=== PATIENT | female | born 1955 | race Caucasian/White ===

== ENCOUNTER 2018-05-20 09:57 | Emergency (ER) | payer MEDICARE ==
[2018-05-20 10:34] LABS: #Basophils 0.1 thou/uL (0.0-0.2); #Eosinphils 0.3 thou/uL (0.0-0.7); #Lymphocytes 1.3 thou/uL (1.20-3.40); #Monocytes 0.6 thou/uL (0.11-0.59); #Neutrophils 4.1 thou/uL (1.40-6.50); %Basophils 1.2 % (0.0-1.0); %Eosinophils 4.8 % (0.0-10.0); %Lymphocytes 20.7 % (21.0-51.0); %Monocytes 9.6 % (0.0-10.0); %Neutrophils 63.7 % (42.0-75.0); Hemoglobin 13.2 g/dL (12.0-16.0); Mean Corpuscular HGB CONC 32.3 g/dL (32.0-36.0); Mean Corpuscular Hemoglobin 31.7 pg (27.0-31.0); Mean Corpuscular Volume 98.3 fL (78.0-98.0); Mean Platelet Volume 9.4 fL (7.4-10.4); Platelet Count 137 thou/uL (130-400); RBC Distribution Width 14.4 % (11.5-14.5); Red Blood Cell (RBC) Count 4.15 mill/uL (4.20-5.40); White Blood Cell (WBC) Count 6.5 thou/uL (4.8-10.8)
[2018-05-20 11:00] LABS: ALT (SGPT) 7 U/L (8-55); AST (SGOT) 14 U/L (5-34); Alkaline Phosphatase 81 U/L (40-150); Anion Gap 13 mmol/L (10-20); BUN (Urea Nitrogen) 30 mg/dL (9.8-20.1); Bilirubin, Total 0.6 mg/dL (0.2-1.2); CK (CPK) 73 U/L (29-168); CKMB 2.2 ng/mL (0-6.6); Calc. Creatinine Clearance 0 mL/min (70-130); Calcium 9.6 mg/dL (7.8-10.44); Carbon Dioxide 29 mmol/L (23-31); Chloride 107 mmol/L (98-107); Estimated GFR-MDRD 42; Globulin 2.5 g/dL (2.4-3.5); Glucose 109 mg/dL (80-115); Lipase 67 U/L (8-78); Potassium 4.4 mmol/L (3.5-5.1); Protein, Total 6.5 g/dL (6.0-8.3); Sodium 145 mmol/L (136-145); Troponin I Less than 0.010 ng/mL (< 0.028)
--- NOTE | 2018-05-20 11:34 | RAD ---
AP VIEW CHEST: Date: 05/20/18 INDICATION: History of right arm numbness and chest pain since 0600 hours this morning. COMPARISON: Prior study dated 09/22/16. FINDINGS: Dual lead pacemaker is stable. Lungs are clear. Heart size is normal. No acute osseous abnormality is evident. IMPRESSION: No acute cardiopulmonary abnormality. POS: EVE
[2018-05-20 13:40] LABS: Troponin I Less than 0.010 ng/mL (< 0.028)
== END 2018-05-20 14:46 | disposition home or self-care (01) ==
LOC: ERS 09:57
DX: R07.89 Other chest pain (principal); E03.9 Hypothyroidism, unspecified; E78.5 Hyperlipidemia, unspecified; J44.9 Chronic obstructive pulmonary disease, unspecified; I12.9 Hypertensive chronic kidney disease with stage 1 through stage 4 chronic kidney disease, or unspecified chronic kidney disease; E11.22 Type 2 diabetes mellitus with diabetic chronic kidney disease; N18.9 Chronic kidney disease, unspecified; M10.9 Gout, unspecified; F41.9 Anxiety disorder, unspecified; F17.200 Nicotine dependence, unspecified, uncomplicated; F32.9 Major depressive disorder, single episode, unspecified; Z79.899 Other long term (current) drug therapy; Z79.84 Long term (current) use of oral hypoglycemic drugs
CPT/HCPCS: 36415; 71045; 80053; 82550; 82553; 83690; 84484; 85025; 93005; 94760

== ENCOUNTER 2018-10-28 15:09 | Observation (INO) | payer MEDICARE ==
--- NOTE | 2018-10-28 15:33 | RAD ---
PORTABLE CHEST ONE VIEW: 10/28/2018 3:24 p.m. HISTORY: Chest pain. COMPARISON: 05/20/2018 FINDINGS: A left-sided pacemaker device remains in place. The heart size is normal. The lungs are well expand ed without focal areas of consolidation, pneumothorax, or pleural effusions. IMPRESSION: No acute process. POS: OFF
[2018-10-28 15:48] LABS: Mean Corpuscular HGB CONC 32.2 g/dL (32.0-36.0); Mean Corpuscular Hemoglobin 31.7 pg (27.0-31.0); Mean Corpuscular Volume 98.4 fL (78.0-98.0); Platelet Count 223 thou/uL (130-400); RBC Distribution Width 15.4 % (11.5-14.5); White Blood Cell (WBC) Count 12.3 thou/uL (4.8-10.8)
[2018-10-28] MEDS ORDERED: methylPREDNISolone Sod Succ/PF 125 MG/2 ML VIAL ONE (16:06)
[2018-10-28] MEDS ORDERED: Nitroglycerin 2% Ointment 1 INCH/1 GM Packet ONE (16:06)
[2018-10-28 16:08] LABS: Anisocytosis SLIGHT = 6-15 cells (100X) (0-5/hpf); Band 3 % (5-11); Eosinophils 2 % (0-10); Lymphocytes 10 % (21-51); MDiff Complete? YES; Monocytes 7 % (0-10); Neutrophil 78 % (42-75); PLT Morphology Comment Appears Adequate
[2018-10-28 16:36] LABS: CKMB 6.3 ng/mL (0-6.6)
[2018-10-28 17:14] LABS: ALT (SGPT) 13 U/L (8-55); AST (SGOT) 21 U/L (5-34); Albumin 3.4 g/dL (3.4-4.8); Alkaline Phosphatase 109 U/L (40-150); Anion Gap 17 mmol/L (10-20); BUN (Urea Nitrogen) 21 mg/dL (9.8-20.1); Bilirubin, Total 0.6 mg/dL (0.2-1.2); CK (CPK) 129 U/L (29-168); Calc. Creatinine Clearance 0 mL/min (70-130); Calcium 9.3 mg/dL (7.8-10.44); Carbon Dioxide 20 mmol/L (23-31); Chloride 106 mmol/L (98-107); Estimated GFR-MDRD 45; Globulin 3.5 g/dL (2.4-3.5); Glucose 127 mg/dL (80-115); Lipase 27 U/L (8-78); Potassium 3.6 mmol/L (3.5-5.1); Protein, Total 6.9 g/dL (6.0-8.3); Sodium 139 mmol/L (136-145)
[2018-10-28 18:28] LABS: Troponin I 0.021 ng/mL (< 0.028)
[2018-10-28] MEDS ORDERED: cefTRIAXone\\ROCEPHIN 1 GM VIAL ONE (18:51)
--- NOTE | 2018-10-28 19:54 | NM ---
VQ SCAN: 10/28/2018 PROVIDED CLINICAL HISTORY: Chest pain. RADIOPHARMACEUTICAL: Xenon 133, 9.3 millicuries, inhalational. Technetium 99m labeled MAA, 6.6 millicuries, IV. FINDINGS: There is nonspecific heterogeneity of the distribution of radiotracer to each lung on the perfusion i mages, without evidence for a segmental, pleural-based perfusion defect. The ventilation images appe ar normal. IMPRESSION: No scintigraphic evidence for pulmonary embolus. POS: EVEH
[2018-10-28] MEDS ORDERED: Acetaminophen 325 MG TAB ONE (20:00)
[2018-10-28] MEDS ORDERED: HYDROcodone/Acetaminophen 5/325 mg Tablet PO PRN (20:58)
[2018-10-28] MEDS ORDERED: Ondansetron ODT 4 MG TAB SL PRN (20:58)
[2018-10-28] MEDS ORDERED: Acetaminophen 325 MG TAB PO PRN (20:58)
[2018-10-28] MEDS ORDERED: Ondansetron PF 4 MG/2 ML Vial IVP PRN (20:58)
[2018-10-28] MEDS: HYDROcodone/Acetaminophen 5/325 mg Tablet PO PRN (22:06)
[2018-10-28 22:26] LABS: Troponin I 0.024 ng/mL (< 0.028)
[2018-10-29] MEDS: HYDROcodone/Acetaminophen 5/325 mg Tablet PO PRN (03:59)
[2018-10-29] MEDS ORDERED: Insulin Regular 300 UNITS/3 ML VIAL SC PRN (10:14)
[2018-10-29] MEDS ORDERED: Dextrose 5% in Water 1,000 ML IV PRN (10:14)
[2018-10-29] MEDS ORDERED: Dextrose 50% Abboject 50 ML SYRINGE IVP PRN (10:14)
[2018-10-29] MEDS ORDERED: Acetaminophen 325 MG TAB PO PRN (10:23)
[2018-10-29] MEDS ORDERED: Allopurinol 100 MG TAB PO SCH (11:00)
[2018-10-29] MEDS ORDERED: Cefdinir 300 MG CAP PO SCH (11:00)
[2018-10-29] MEDS: Acetaminophen/Codeine 30-300mg Tablet PO PRN ×2 (11:18→20:12)
--- NOTE | 2018-10-29 11:37 | HP ---
CHIEF COMPLAINT: Chest pain. HISTORY OF PRESENT ILLNESS: The patient is a 63-year-old female, who states that she has been having chest pain off and on for 2 days. She has been coughing for about 2 months. She came and saw Dr. Wallace in the office recently. She was found to have sinusitis and mild rhonchi. She was placed on Omnicef 300 mg b.i.d., which she is still on. She states, however, her chest pain has gotten worse in the last 2 days, coughing more, and her defibrillator has gone off 2 times on the day of admission, so she came to the ER for further evaluation. I asked the ER specifically, if her chest pain was made worse by palpation, he said no, but it is, and I asked the ER doctor, if her chest pain was made worse by coughing, he said no, but actually it is. The patient states that during my exam, the patient's pain was reproduced by both palpation and coughing. However, she does have multiple cardiac risk factors. She is a smoker. She has had pacemaker in the past and has dyslipidemia. She has been taking her baby aspirin daily. She states there is a history of kidney failure with leg swelling, but denies any leg pain at this time. While in the ER, she did get a V/Q scan, which was negative for pulmonary embolism. She was placed under observation for further evaluation. She has not had an echocardiogram in over a year and her usual public health worker is Dr. Mckeon, who has seen in the past. She describes her pain as sharp 8/10, it is left-sided. She states there is numbness into her jaw and a little bit of pain into her left shoulder. She states she does have night sweats at night, but there is no acute diaphoresis during the episodes or only last a few seconds. There is no dyspnea or nausea. PAST MEDICAL HISTORY: The patient has a history of type 2 diabetes, hypothyroidism, hyperlipidemia, high cholesterol, renal dysfunction, hypertension, COPD, gout, irregular heart beat. PAST SURGICAL HISTORY: Includes cholecystectomy, hysterectomy, tonsillectomy, surgery for an abdominal cellulitis, and pacemaker placement. PSYCHIATRIC HISTORY: Significant for anxiety and depression. SOCIAL HISTORY: She drinks socially, but is a current tobacco smoker, who has not smoked in 5 days. FAMILY HISTORY: Noncontributory. ALLERGIES: ON ADMISSION INCLUDE ERYTHROMYCIN, IODINATED CONTRAST MATERIAL, AND NSAIDS. REVIEW OF SYSTEMS: GENERAL: At the time of admission is negative for chills, fever. HEENT: Significant for rhinorrhea, sinus pressure, sore throat. CHEST: Significant for cough with a history of green sputum that is now in remission. She does feel short winded as well. CARDIOVASCULAR: She reports chest pain, left-sided, worse with coughing and palpation. GI: Negative for nausea, vomiting, diarrhea. : Negative for painful urination, frequency, blood in urine or stool. SKIN: No new rashes or lesions. NEUROLOGIC: No areas of anesthesia, hypesthesia, headaches. HEMOLYMPHATIC/LYMPH: She has normal lower extremity mild edema, but no acute ecchymotic areas or blood clots. PSYCHIATRIC: She is significantly anxious. PHYSICAL EXAMINATION: VITAL SIGNS: At the time of admission, blood pressure is 98/51, pulse 77, respirations 12, 93% on room air, temperature 98.1. She weighs 162 pounds. She is 5 feet 4 inches tall with a BMI of 27. GENERAL: This is a well-developed, well-nourished female, alert, oriented, and cooperative. HEENT: Normocephalic, atraumatic. Pupils are equal, round, and reactive to light. Extraocular muscles are intact. TMs, nares, and pharynx are clear. NECK: Supple. CHEST: With diminished breath sounds throughout. No acute wheezing, rales, or rhonchi. Chest wall is tender to palpation, left sternocostal margin and reproduces the chest pain, which is sharp in nature. BREASTS: Deferred. HEART: Regular rate and rhythm. No murmur. ABDOMEN: Soft, generally tender from coughing, the patient states. No hepatosplenomegaly. : Deferred. EXTREMITIES: Without clubbing, cyanosis. With only trace edema in the lower extremities at this time. SKIN: Without acute rashes or lesions. NEUROLOGIC: Cranial nerves are intact. Mental status is clear. Cerebral functions are untested. Deep tendon reflexes are 1+ bilaterally, knee jerk. LABORATORY DATA: Lab work on admission shows WBCs at 12.3, hemoglobin is 14, hematocrit 43.4 with platelet at 223. There is slight left shift with 78 neutrophils and 3 bands, 10 lymphs. Sodium 139, potassium 3.6, chloride 106, CO2 20, BUN 21, creatinine 1.21 with GFR of 45, glucose 127 on admission, calcium 9.3. Liver functions normal. Cardiac enzymes negative. BNP slightly elevated at 174. Lipase 27. D-dimer elevated at 4.3. Chest x-ray, no acute findings. Pulmonary V/Q scan. No findings of pulmonary embolism. EKG shows atrial paced rhythm with occasional PVCs, septal infarct, age undetermined, ventricular rate at 68 beats per minute. ASSESSMENT: 1. Chest pain, probably musculoskeletal, but with multiple risk factors. 2. Chronic obstructive pulmonary disease. 3. Non-insulin dependent diabetic. 4. Anxiety disorder. PLAN: Echocardiogram. Cardiology consultation, serial reevaluations. Sliding scale insulin and regular medication for her diabetes. Job ID: [id number]
--- NOTE | 2018-10-29 12:28 | EKG ---
Test Reason : Blood Pressure : / mmHG Vent. Rate : 068 BPM Atrial Rate : 068 BPM P-R Int : 000 ms QRS Dur : 104 ms QT Int : 424 ms P-R-T Axes : 000 -42 074 degrees QTc Int : 450 ms Atrial-paced rhythm with occasional Premature ventricular complexes and Premature atrial complexes Left axis deviation Minimal voltage criteria for LVH, may be normal variant Septal infarct , age undetermined Abnormal ECG Confirmed by RIVKA ROWLAND, ABIDA ([id number]), fashion editor ELLEN RODRIGUEZ ([id number]) on 10/29/2018 12:28:07 PM Referred By: Confirmed By:ABIDA TINEO MD
[2018-10-29] MEDS ORDERED: Buprenorphine 8mg/Naloxone 2mg per 1 FILM SL SCH (13:30)
[2018-10-29] MEDS: Ipratropium Bromide 2.5 ml Neb NEB SCH ×3 (13:43→23:16)
[2018-10-29 14:29] VITALS: BMI 27.4
--- NOTE | 2018-10-29 17:46 | CON ---
DATE OF CONSULTATION: TYPE OF CONSULTATION: Cardiology. LOCATION: Room 230. REASON FOR CARDIOLOGY CONSULT: Chest pain and COPD exacerbation. HISTORY OF PRESENT ILLNESS: Ms. Bustamante is a 63-year-old female with significant history of severe COPD, history of paroxysmal atrial fibrillation, pacemaker placement secondary to sick sinus syndrome, hypertension, chronic kidney disease, hypothyroidism, and chronic diastolic heart failure. The patient has had severe cough for 2 and 1/2 months with sharp pain at the mediastinal area. The pain became worse especially with cough and any mild movement last 4 days. The patient has been taking antibiotic for cough which was prescribed by primary care doctor since October 17, which caused severe diarrhea. The patient's primary care doctor changed to different antibiotic; however, she continued having severe diarrhea and symptoms of shortness of breath and the cough have not improved. Therefore, the patient presented to the emergency department for further evaluation and treatment. Per the ER records, the patient reports that she had a discharge from her "pacer" twice last 2 days. However, the patient has a pacemaker, not defibrillator. The patient has seen a registered nurse nursery in [place] and she just came back to [place], [place] in August 2018. The patient has not seen any registered nurse nursery since August 2018. She also complains about swelling in bilateral lower extremities for one month. She has been taking the Lasix. She had a VQ scan for elevated D-dimer, which showed negative for pulmonary embolism. The patient's pacemaker was interrogated today, shows 1 second of atrial tachycardia and 6 second SVT and undersensed pacemaker. [employer] business center representative will be here to adjust the patient's pacemaker lead later. At this moment, the patient complains of shortness of breath and severe anxiety; however, the patient denies any chest pain or discomfort in her chest, numbness to left upper arm, nausea, vomiting, or any other cardiac complaints. The patient also has severe pain to mediastinal area after she coughs or change her position. The patient had cardiac catheterization in April 2015, which showed normal coronary artery. She is current smoker and has history of hypertension, hyperlipidemia and insulin dependent diabetes. The patient had an echocardiogram was done in July 2016, which showed EF 60% to 65%, grade 1 diastolic dysfunction, moderate mitral valve regurgitation, and moderate to severe aortic valve insufficiency. The patient's chest x-ray today shows no acute process. The patient had renal ultrasound in 2013, showed unremarkable renal ultrasound. PAST MEDICAL HISTORY: 1. Paroxysmal atrial fibrillation. 2. Chronic diastolic heart failure. 3. Hypertension. 4. Chronic kidney disease. 5. COPD. 6. Insulin dependent diabetes. 7. Hypothyroidism. 8. Hyperlipidemia. 9. Gout. 10. The patient was told that the patient has a hole to her heart secondary to rheumatic fever. PAST SURGICAL HISTORY: 1. Cholecystectomy. 2. Hysterectomy. 3. Tonsillectomy. 4. Abdominal cellulitis. 5. Pacemaker placement with pocket adjusted revision in November 2015. PAST PSYCHIATRIC HISTORY: She has a significant history of anxiety and depression. FAMILY HISTORY: Significant diabetes in her maternal side. She has never seen her father before. SOCIAL HISTORY: She smokes 1 cigarette every 2 to 3 days. Last cigarette smoking was 5 days ago. She drinks occasionally. The last drink was last [place]. She is . She is living with her daughter. She has two children who are living well. She drinks one cup of coffee. She does not exercise due to the severe bilateral knee pain which requires surgery per the patient. She states she is watching her sodium and fluid intake. ALLERGIES: SHE IS ALLERGIC TO ERYTHROMYCIN, IODINE, AND NSAID. MEDICATIONS: 1. Levothyroxine 75 mcg once a day. 2. Simvastatin 40 mg once a day. 3. Allopurinol 100 mg twice a day. 4. Protonix 40 mg once a day. 5. Albuterol 2 puffs as needed. 6. Spiriva 18 daily. 7. Symbicort 2 puffs twice a day. 8. Glipizide 5 mg once a day. 9. Victoza 1.2 mg subcu daily. 10. Lasix 40 mg once a day. 11. Trazodone 50 mg once a day. 12. Metoprolol succinate 25 mg once a day. 13. Celebrex 400 mg once a day. 14. Omnicef 300 mg twice a day. 15. Aspirin 81 mg once a day. REVIEW OF SYSTEMS: A 12-point review of system negative unless otherwise mentioned in the HPI or below. She has a generalized weakness due to the chronic diarrhea for 12 days. She has chronic bilateral knee pain. She is going to follow up with Ortho doctor in the future for possible knee replacement. At this moment, she is under severe stress and she is easy to start crying. PHYSICAL EXAMINATION: VITAL SIGNS: Blood pressure 135/65, temperature 98, pulse 70, A-pacing and V-sensing, respiratory rate 20, O2 sat 98% on room air. GENERAL: The patient is alert and oriented x4, not in acute distress, but tends to cry very easy. HEENT: Head, normocephalic atraumatic. Eyes, extraocular muscle movements are intact. ENT and mouth; oral and nasal mucosa moist without lesions. NECK: Supple. No JVD. Normal range of motion. RESPIRATORY: Diminished throughout bilateral lungs. No acute wheezing, rales, or rhonchi noted. CARDIOVASCULAR: Regular rate and rhythm. S1 and S2. There is no S3 or S4. She has significant murmurs to the left apex site and right middle sternal border. Carotid pulses are present without bruits or thrill. EXTREMITIES: 2+ pulses in the bilateral upper and lower extremities. No edema. ABDOMEN: Nontender. No masses palpated. Bowel sounds are present. SKIN: Warm and dry. No bruise, rash, or lesion noticed. MUSCULOSKELETAL: The patient was able to move all extremities. The patient denied claudication. PSYCHIATRIC: The patient gets anxious very easily. NEUROLOGIC: The patient is alert and oriented x4. Nonfocal. LABORATORY DATA: WBC 12.3, hemoglobin 14.0, hematocrit 34.4, and platelets 223. D-dimer 4.3. VQ scan showed no ischemic PE. Sodium 139, potassium 3.6, BUN 21, creatinine 1.21, glucose 127, AST 21, ALT 13. Troponin 0.030, 0.021, and 0.024. BNP 174.4. A 12-lead EKG at the ER shows A pacing and V sensing and then with no ST-segment change or T-wave inversion. ASSESSMENT AND PLAN: 1. Chest pain. Although, the patient's cardiac catheterization in 2014 shows the patient has normal coronary arteries and the patient's troponin level are stable at this moment, the stress test is ordered to reevaluate the patient's cardiovascular due to long history of tobacco abuse, hypertension, hyperlipidemia and insulin dependent diabetes. We would like to continue to monitor on the telemetry. 2. Chronic obstructive pulmonary disease exacerbation. The patient's condition is stable with room air at this moment after the patient received breathing treatment, which is managed by primary care doctor. 3. Chronic diastolic heart failure. The patient's condition is stable at this moment. The patient is being on metoprolol and Lasix. She is not on ELE inhibitor or ARB due to the history of chronic kidney disease. 4. Hypertension. Blood pressure is stable with current medication. 5. Hyperlipidemia. The patient has been on Lipitor 20 mg once a day. 6. Nmo-nlpvqal-xnzrtqilt diabetes which is managed by primary care doctor. 7. Hypothyroidism. The patient is being on levothyroxine. 8. Anxiety and depression, which we would like to defer to the primary care doctor. 9. Moderate to severe aortic valve insufficiency. The patient had another Echocardiogram today and the result is pending at this time. Thank you for allowing the cardiology service to participate in the care of this patient. We will follow along with the patient's care team and further recommendations as appropriate. Dr Mckeon will follow up withe the patient from tomorrow. Job ID: [id number] MTDD
[2018-10-29] MEDS: Mometasone/Formoterol 120 PUFF INHALER INH SCH (19:04)
[2018-10-29] MEDS: Cefdinir 300 MG CAP PO SCH (20:10)
[2018-10-29] MEDS: Atorvastatin Calcium 20 MG TAB PO SCH (20:10)
[2018-10-30] MEDS: Acetaminophen/Codeine 30-300mg Tablet PO PRN ×3 (02:18→20:44)
[2018-10-30] MEDS: Levothyroxine Sodium 75 MCG TAB PO SCH (05:43)
[2018-10-30] MEDS: Mometasone/Formoterol 120 PUFF INHALER INH SCH ×2 (06:46→18:41)
[2018-10-30] MEDS: Ipratropium Bromide 2.5 ml Neb NEB SCH ×4 (06:47→23:31)
--- NOTE | 2018-10-30 07:39 | CON ---
DATE OF CONSULTATION: 10/29/2018 ADDENDUM: TYPE OF CONSULTATION: Cardiology. INDICATION FOR CONSULTATION: A 63-year-old female with COPD exacerbation and chest pain. Please refer to the note that is already dictated by my nurse practitioner. This is a patient who has been followed by Dr. Martinez in the past. HISTORY OF PRESENT ILLNESS: She is a 63-year-old female who has severe COPD. She has a history in the past of also paroxysmal atrial fibrillation. She underwent pacemaker insertion by Dr. Rojas several years ago. She also then had it revised, I believe, about a year later, due to increased weight loss and some bulging of the device to the skin area. She has had a history of chronic kidney disease and she also has diastolic dysfunction. She recently moved back to this area and then noticed that she had been using some chemicals and spraying and noticed that she has had increasing coughing and then noticed pain in her chest. This is also tender to palpation and she noticed that she had also had some tingling on the left side of her face. She had been taking some medications with some cough medicines, but did not completely resolve her problems. She continued to have shortness of breath and then she developed some diarrhea most likely due to the antibiotics associated with her upper respiratory tract infection. She presented to the emergency room, where further evaluation was indicated and she was admitted to the hospital. I believe she was also previously in the emergency room earlier. She also had, I believe, a V/Q scan, which ruled out evidence of pulmonary embolus. She does have a history of what appears to be some depression and anxiety, but at this time, she is comfortable and she had no significant complaints, but did have some coughing during the evaluation. She did undergo cardiac catheterization in the past, which showed normal coronary system approximately three years ago or three and half years ago. She has also had an echocardiogram performed about two years ago, which showed a normal ejection fraction with grade 1 diastolic dysfunction with mitral valve regurgitation and also aortic valve regurgitation, which was felt to be moderate to severe. PAST MEDICAL HISTORY: Please refer to the notes dictated by my nurse practitioner. SOCIAL HISTORY: Please refer to the notes dictated by my nurse practitioner. FAMILY HISTORY: Please refer to the notes dictated by my nurse practitioner. REVIEW OF SYSTEMS: Please refer to the notes dictated by my nurse practitioner. MEDICATIONS: Please refer to the notes dictated by my nurse practitioner. ALLERGIES: PLEASE REFER TO THE NOTES DICTATED BY MY NURSE PRACTITIONER. PHYSICAL EXAMINATION: VITAL SIGNS: Reveals a blood pressure of 135/65. She is afebrile. Heart rate is in the 70s. It shows atrial pacing and ventricular sensing. Respiratory rates in the 20s, O2 saturations are 90% range, 90% to 98%. She has had no other significant abnormalities from . GENERAL: She is alert and oriented. She does tend to ramble on at times. HEENT: Shows head to be normocephalic and atraumatic. Carotid pulses are present. She has a bruit over the right carotid area, also a soft bruit on the left area, but significant bruit of the right carotid area. CHEST: Decreased breath sounds throughout. She does have occasional scattered rhonchi. CARDIOVASCULAR: Reveals a regular rhythm and she has a very soft systolic murmur at the apex. She also has a well-healed surgical incision over the pacemaker site in the left infraclavicular area. ABDOMEN: Soft and nontender. EXTREMITIES: Large lower extremities, but no edema was noted. Pulses are difficult to palpate. NEUROLOGIC: The patient appears to be intact except she is somewhat anxious, but otherwise, remains unremarkable. LABORATORY DATA: As noted by my nurse practitioner, with a hemoglobin of 14. Her BNP was 174. Blood sugar was 127. Creatinine was 1.2. IMPRESSION: 1. Chronic obstructive pulmonary disease exacerbation with significant coughing, which has brought her on a chest discomfort. It is unlikely that she has developed a significant coronary artery disease in the last three years, but she does have a history of tobacco abuse. She states she only smokes a few cigarettes a week now, but she does have a history of tobacco abuse and diabetes, and I believe a stress test has been ordered for evaluation of the cardiac status. Dr. Mckeon will re-evaluate this tomorrow morning. 2. History of diastolic heart failure. This has been grade 1/3 in the past and she does not appear to be significantly in heart failure at this time. 3. History of hypertension. Blood pressure is stable and we will continue her same medications. 4. History of diabetes, which will be managed by the primary care service. At this time, further care of the patient will be by Dr. Mckeon when he visits with her tomorrow. At this time, from a cardiac standpoint, she actually appears to be relatively stable. The pacemaker also was interrogated, was found to have normal function and still has good longevity on the battery. Job ID: [id number]
[2018-10-30] MEDS ORDERED: Regadenoson 0.4 MG/5 ML SYRINGE ONE (09:00)
[2018-10-30] MEDS ORDERED: VICTOZA INJ SC SCH (09:00)
--- NOTE | 2018-10-30 09:08 | ULT ---
BILATERAL CAROTID DUPLEX ULTRASOUND: HISTORY: Bilateral carotid bruit. TECHNIQUE: Rojas-scale ultrasound with color-flow and spectral Doppler imaging of the extracranial carotid artery systems is performed bilaterally. FINDINGS: Plaque formation is seen on either side. The peak systolic velocity in the right ICA measures 89 cm per second, with an end-diastolic velocity of 25 cm per second and a systolic ratio of 0.98. The peak systolic velocity in the left ICA measures 86 cm per second, with an end-diastolic velocity of 25 cm per second and a systolic ratio of 1.0. Flow in the right vertebral artery is antegrade. Retrograde flow is seen in the left vertebral arter y. IMPRESSION: 1. No evidence of hemodynamically significant stenosis in either internal carotid artery. 2. Findings suspicious for left-sided subclavian steal. POS: OFF
[2018-10-30] MEDS: glipiZIDE 5 MG TAB PO SCH (11:14)
[2018-10-30] MEDS: Cefdinir 300 MG CAP PO SCH ×2 (11:15→20:40)
[2018-10-30] MEDS: Allopurinol 100 MG TAB PO SCH (11:15)
[2018-10-30] MEDS: Metoprolol Tartrate 25 MG TAB PO SCH (11:16)
[2018-10-30] MEDS: Furosemide 40 MG TAB PO SCH (11:17)
[2018-10-30] MEDS: Buprenorphine 8mg/Naloxone 2mg per 1 FILM SL SCH (12:15)
--- NOTE | 2018-10-30 13:01 | EKG ---
Test Reason : Blood Pressure : / mmHG Vent. Rate : 074 BPM Atrial Rate : 074 BPM P-R Int : 150 ms QRS Dur : 104 ms QT Int : 424 ms P-R-T Axes : 069 -43 038 degrees QTc Int : 470 ms Suspect unspecified pacemaker failure Sinus rhythm with Premature supraventricular complexes Left axis deviation Moderate voltage criteria for LVH, may be normal variant Abnormal ECG Confirmed by HENNY NAIR ([id number]), senior editor ELLEN RODRIGUEZ ([id number]) on 10/30/2018 1:00:53 PM Referred By: Confirmed By:HENNY NAIR
--- NOTE | 2018-10-30 13:19 | NM ---
CARDIAC SPECT WITH EJECTION FRACTION AND WALL MOTION: Date: 10/30/18 HISTORY: 63-year-old female with history of chest pain, congestive heart failure, COPD, and atrial fibrillatio n. TECHNIQUE: Lexiscan sestamibi study performed. Patient was injected with 29.0 mCi technetium-99m sestamibi intra venously for stress images and patient was injected with 10.5 mCi technetium-99m sestamibi intravenou sly for resting images. FINDINGS: Multiple SPECT images in the short axis, vertical long axis, and horizontal long axis demonstrate no scan evidence for infarct or ischemia. TID: 1.14 LHR: 0.32 EDV: 123 mL EF: 66% MYOCARDIAL PERFUSION WALL MOTION: Wall motion is normal. IMPRESSION: No scan evidence for infarct or ischemia. EDV 123 mL. POS: MARY
--- NOTE | 2018-10-30 17:28 | PDOC.CTH ---
Cardiology Progress Note - Subjective No chest pain. No other issues. - Objective Vital Signs Temp Pulse Resp BP Pulse Ox 10/30/18 15:40 97.9 F 68 18 116/57 L 93 L 10/30/18 13:18 61 16 92 L 10/30/18 11:10 97.5 F L 77 18 136/64 94 L 10/30/18 06:47 66 16 95 10/30/18 06:46 66 16 94 L Admit Weight 162 lb 6.4 oz Weight 165 lb 14.4 oz 10/29/18 10/30/18 10/31/18 06:59 06:59 06:59 Intake Total 1560 200 Output Total 600 Balance 960 200 - Physical Examination General/Neuro: alert & oriented x3, NAD Neck: no JVD present Lungs: CTA, unlabored respirations Heart: RRR Abdomen: NT/ND Extremities: other: (no edema) - Telemetry Telemetry Rhythm: NSR - Labs Result Diagrams: 10/28/18 15:24 10/28/18 16:40 Troponin/CKMB CK-MB (CK-2) 6.3 ng/mL (0-6.6) 10/28/18 15:24 Troponin I 0.024 ng/mL (< 0.028) 10/28/18 21:47 - Assessment/Plan 1. Chest pain 2. Possible subclavian steal 3. COPD exacerbation. PLAN: - Non cardiac chest pain. Normal stress test and normal LHC in 2014 - May discharge home at any point from cardiac perspective - Will work up subclavian stenosis as an outpatient with a ACT angio. She did not have a real iodine allergy it was renal dysfunction after a large dose of contrast. - Follow up in1 month.
[2018-10-30] MEDS: Atorvastatin Calcium 20 MG TAB PO SCH (20:40)
[2018-10-31] MEDS: Acetaminophen/Codeine 30-300mg Tablet PO PRN (04:40)
[2018-10-31] MEDS: Levothyroxine Sodium 75 MCG TAB PO SCH (05:11)
[2018-10-31] MEDS: Ipratropium Bromide 2.5 ml Neb NEB SCH (07:11)
[2018-10-31] MEDS: Mometasone/Formoterol 120 PUFF INHALER INH SCH (07:13)
[2018-10-31 08:25] VITALS: BP 129/95; TEMP 97.7
[2018-10-31] MEDS: Allopurinol 100 MG TAB PO SCH (08:48)
[2018-10-31] MEDS: Metoprolol Tartrate 25 MG TAB PO SCH (08:48)
[2018-10-31] MEDS: glipiZIDE 5 MG TAB PO SCH (08:48)
[2018-10-31] MEDS: Furosemide 40 MG TAB PO SCH (08:48)
[2018-10-31] MEDS: Buprenorphine 8mg/Naloxone 2mg per 1 FILM SL SCH (08:49)
[2018-10-31] MEDS: Cefdinir 300 MG CAP PO SCH (08:53)
== END 2018-10-31 09:31 | disposition home or self-care (01) ==
LOC: ERS 15:09 → ERHOLD 17:19 → 2SW 20:24
PROVIDERS: ADMIT Specialist; ATTEND Specialist
DX: R07.89 Other chest pain (principal); J44.1 Chronic obstructive pulmonary disease with (acute) exacerbation; I12.9 Hypertensive chronic kidney disease with stage 1 through stage 4 chronic kidney disease, or unspecified chronic kidney disease; E11.22 Type 2 diabetes mellitus with diabetic chronic kidney disease; N18.9 Chronic kidney disease, unspecified; I50.32 Chronic diastolic (congestive) heart failure; F17.210 Nicotine dependence, cigarettes, uncomplicated; E78.5 Hyperlipidemia, unspecified; E03.9 Hypothyroidism, unspecified; E78.00 Pure hypercholesterolemia, unspecified; M10.9 Gout, unspecified; F41.9 Anxiety disorder, unspecified; F32.9 Major depressive disorder, single episode, unspecified; I48.0 Paroxysmal atrial fibrillation; I49.5 Sick sinus syndrome; I35.1 Nonrheumatic aortic (valve) insufficiency; Z95.0 Presence of cardiac pacemaker; Z79.82 Long term (current) use of aspirin; Z79.84 Long term (current) use of oral hypoglycemic drugs; Z79.899 Other long term (current) drug therapy; Z88.1 Allergy status to other antibiotic agents; Z88.6 Allergy status to analgesic agent; Z91.041 Radiographic dye allergy status
CPT/HCPCS: 71045; 78452; 78582; 80053; 82550; 82553; 82962 ×4; 83690; 83880; 84484 ×2; 85025; 85379; 87040; 93005; 93017; 93306; 93880; 94640 ×8; 94760; 96365; 96375; 99285; A9500; A9540; A9558; G0378 ×2; 36415; 36416; J0696; J1815; J2785; J2930; J7620

== ENCOUNTER 2018-11-13 10:37 | Emergency (ER) | payer MEDICARE ==
[2018-11-13 11:08] LABS: #Basophils 0.1 thou/uL (0.0-0.2); #Eosinphils 0.1 thou/uL (0.0-0.7); #Lymphocytes 1.4 thou/uL (1.20-3.40); #Monocytes 0.4 thou/uL (0.11-0.59); #Neutrophils 6.4 thou/uL (1.40-6.50); %Basophils 0.7 % (0.0-1.0); %Eosinophils 1.6 % (0.0-10.0); %Lymphocytes 16.3 % (21.0-51.0); %Monocytes 5.2 % (0.0-10.0); %Neutrophils 76.2 % (42.0-75.0); Hemoglobin 12.6 g/dL (12.0-16.0); Mean Corpuscular HGB CONC 31.7 g/dL (32.0-36.0); Mean Corpuscular Hemoglobin 31.4 pg (27.0-31.0); Mean Platelet Volume 9.6 fL (7.4-10.4); Platelet Count 185 thou/uL (130-400); RBC Distribution Width 14.9 % (11.5-14.5); Red Blood Cell (RBC) Count 4.01 mill/uL (4.20-5.40); White Blood Cell (WBC) Count 8.4 thou/uL (4.8-10.8)
[2018-11-13 11:34] LABS: ALT (SGPT) 17 U/L (8-55); AST (SGOT) 36 U/L (5-34); Albumin 3.6 g/dL (3.4-4.8); Alkaline Phosphatase 99 U/L (40-150); Anion Gap 16 mmol/L (10-20); BUN (Urea Nitrogen) 34 mg/dL (9.8-20.1); Bilirubin, Total 0.9 mg/dL (0.2-1.2); Calc. Creatinine Clearance 0 mL/min (70-130); Calcium 9.4 mg/dL (7.8-10.44); Carbon Dioxide 28 mmol/L (23-31); Chloride 104 mmol/L (98-107); Estimated GFR-MDRD 35; Globulin 3.1 g/dL (2.4-3.5); Glucose 110 mg/dL (80-115); Potassium 4.4 mmol/L (3.5-5.1); Protein, Total 6.7 g/dL (6.0-8.3); Sodium 144 mmol/L (136-145)
--- NOTE | 2018-11-13 12:20 | RAD ---
FRONTAL RADIOGRAPH CHEST PORTABLE UPRIGHT: Date: 11/13/18 COMPARISON: 10/28/18. HISTORY: Dyspnea. FINDINGS: There is nonspecific mild new hazy increased density in the costophrenic angle on the right. There is a dual lead transvenous pacing device in stable position. Stable prominence of the cardiac silhouett e. No pneumothorax. Left lung appears clear. IMPRESSION: Mild hazy new increased density in the right costophrenic angle may signify infiltrate, volume loss, and/or small volume right pleural effusion. POS: MARY
== END 2018-11-13 14:27 | disposition home or self-care (01) ==
LOC: ERS 10:37
DX: I13.0 Hypertensive heart and chronic kidney disease with heart failure and stage 1 through stage 4 chronic kidney disease, or unspecified chronic kidney disease (principal); I50.9 Heart failure, unspecified; N18.9 Chronic kidney disease, unspecified; Z71.6 Tobacco abuse counseling; E03.9 Hypothyroidism, unspecified; E78.5 Hyperlipidemia, unspecified; J44.9 Chronic obstructive pulmonary disease, unspecified; E11.22 Type 2 diabetes mellitus with diabetic chronic kidney disease; M10.9 Gout, unspecified; F41.9 Anxiety disorder, unspecified; F32.9 Major depressive disorder, single episode, unspecified; F17.210 Nicotine dependence, cigarettes, uncomplicated; Z79.899 Other long term (current) drug therapy; Z79.82 Long term (current) use of aspirin
CPT/HCPCS: 36415; 71045; 80053; 82550; 83880; 84484; 85025; 93005; 99406

== ENCOUNTER 2018-11-15 08:55 | Outpatient (CLI) | payer MEDICARE ==
--- NOTE | 2018-11-15 09:19 | RAD ---
CERVICAL SPINE SERIES 3 VIEWS: Date: 11/15/18 HISTORY: Neck pain and right-sided radicular symptoms. FINDINGS: The vertebral bodies are normal in height. Disc narrowing is seen at C5-6 and C6-7. There are some mo derate degenerative facet changes noted. No soft tissue swelling. Carotid bulb calcifications noted. IMPRESSION: Mild to moderate osteoarthritic changes of the spine. POS: TPC
== END 2018-11-15 08:56 | disposition home or self-care (01) ==
LOC: BICRAD 08:55
PROVIDERS: ATTEND Specialist
DX: M47.22 Other spondylosis with radiculopathy, cervical region (principal)
CPT/HCPCS: 72040

== ENCOUNTER 2018-11-26 09:00 | Outpatient (CLI) | payer MEDICARE ==
--- NOTE | 2018-11-26 10:15 | BD ---
DEXA BONE DENSITY STUDY: History: Post-menopausal. Lumbar Spine: BMD (g/cm2) L1 1.083 T-Score: 0.8 L2 1.098 T-Score: 0.6 L3 1.012 T-Score: 0.7 L4 0.952 T-Score: 1.0 L1-L4 1.025 T-Score: 0.2 Femoral Neck: 0.616 T-Score: -2.1 Total Femur: 0.894 T-Score: -0.4 Impression: 1. Normal bone mineral density of the lumbar spine and osteopenia of the left femoral neck. 2. 10-year fracture risk of major osteoporotic fracture is 14% and a hip fracture of 3.6%. These frac ture probabilities are calculated for an untreated patient. POS: TPC
== END 2018-11-26 09:01 | disposition home or self-care (01) ==
LOC: BICMAMMO 09:00
PROVIDERS: ATTEND Specialist
DX: Z12.31 Encounter for screening mammogram for malignant neoplasm of breast (principal); Z13.820 Encounter for screening for osteoporosis; Z79.52 Long term (current) use of systemic steroids; R92.1 Mammographic calcification found on diagnostic imaging of breast; M85.88 Other specified disorders of bone density and structure, other site
CPT/HCPCS: 77063; 77067; 77080

== ENCOUNTER 2018-12-18 07:58 | Outpatient (CLI) | payer MEDICARE ==
--- NOTE | 2018-12-18 10:47 | MRI ---
MRI CERVICAL SPINE NONCONTRAST: HISTORY: Bilateral neck and arm pain. Radiculopathy. FINDINGS: Vertebral body height and alignment are maintained. There is desiccation of all the intervertebral d isks. C2-C3: Mild osteophytosis. The central canal and neural foramina are patent. C3-C4: Uncovertebral and facet hypertrophy. Mild posterior osteophyte/disk complex. Mild stenosis of the central canal. Moderate bilateral foraminal stenosis. C4-C5: Disk space narrowing. Posterior osteophyte/disk complex significantly compresses the ventral aspect of the thecal sac and spinal cord. There is a congenitally small central canal. Circumferen tial degenerative changes. Severe stenosis of the central canal. An ill-defined area of increased T 2 signal is present within the spinal cord, centered at this level. It measures 1.2 cm in overall le ngth. Severe stenosis of each neural foramen. C5-C6: Mild posterior osteophyte/disk complex. Circumferential degenerative changes with moderate s tenosis of the central canal. Severe bilateral foraminal stenosis. C6-C7: Mild posterior osteophyte-disk complex. Mild central canal stenosis. Moderate left foramina l stenosis. C7-T1: The central canal and neural foramina are patent. IMPRESSION: 1. Degenerative changes, most severe at the C4-C5 level, with severe central canal and foraminal gillian nosis, severe compression of the spinal cord, and evidence of myelomalacia at this level. Please con mental health technician prompt neurosurgical evaluation. CODE T POS: MARY
== END 2018-12-18 07:59 | disposition home or self-care (01) ==
LOC: MRI 07:58
PROVIDERS: ATTEND Specialist
DX: M47.22 Other spondylosis with radiculopathy, cervical region (principal); M48.02 Spinal stenosis, cervical region; G95.20 Unspecified cord compression; G95.89 Other specified diseases of spinal cord
CPT/HCPCS: 72141

== ENCOUNTER 2019-01-29 00:11 | Outpatient (CLI) | payer MEDICARE ==
[2019-01-29 12:19] LABS: Hemoglobin 12.3 g/dL (12.0-16.0); Mean Corpuscular HGB CONC 31.3 g/dL (32.0-36.0); Mean Corpuscular Hemoglobin 29.7 pg (27.0-31.0); Mean Platelet Volume 10.8 fL (7.4-10.4); Platelet Count 118 thou/uL (130-400); RBC Distribution Width 15.5 % (11.5-14.5); Red Blood Cell (RBC) Count 4.16 mill/uL (4.20-5.40); White Blood Cell (WBC) Count 6.6 thou/uL (4.8-10.8)
[2019-01-29 12:26] LABS: Anion Gap 14 mmol/L (10-20); BUN (Urea Nitrogen) 78 mg/dL (9.8-20.1); Calc. Creatinine Clearance 0 mL/min (70-130); Calcium 9.7 mg/dL (7.8-10.44); Carbon Dioxide 28 mmol/L (23-31); Chloride 111 mmol/L (98-107); Estimated GFR-MDRD 26; Sodium 148 mmol/L (136-145)
[2019-01-29 12:30] LABS: Glucose 58 mg/dL (80-115)
== END 2019-01-29 00:12 | disposition home or self-care (01) ==
LOC: LABBT 00:11
PROVIDERS: ATTEND Neurological Surgery
DX: Z01.812 Encounter for preprocedural laboratory examination (principal); M47.812 Spondylosis without myelopathy or radiculopathy, cervical region
CPT/HCPCS: 80048; 85027

== ENCOUNTER 2019-02-05 05:39 | Day surgery (SDC) | payer MEDICARE ==
[2019-01-29 09:58] VITALS: BMI 28.5
[2019-02-05] MEDS ORDERED: Thrombin 5000 UNITS/5 ML VIAL ONE (06:20)
[2019-02-05] MEDS ORDERED: Fentanyl 100 MCG/2 ML VIAL ONE ×3 (07:32→08:51)
[2019-02-05] MEDS ORDERED: Promethazine HCl 25 MG/ML VIAL IM PRN (08:25)
[2019-02-05] MEDS ORDERED: Ondansetron HCl/PF 4 MG/2 ML Vial IVP PRN (08:25)
[2019-02-05] MEDS ORDERED: Promethazine HCl 25 MG/ML VIAL SLOW IVP PRN (08:25)
--- NOTE | 2019-02-05 10:10 | OP ---
DATE OF PROCEDURE: 02/05/2019 GREASE MAN: Edson Macdonald PA-C INDICATION: Pain. DIAGNOSIS: Cervical stenosis with cervical myelopathy. PROCEDURE PERFORMED: Anterior cervical diskectomy and fusion, C4-C5. ANESTHESIA: General. DESCRIPTION OF PROCEDURE: The patient was brought into the operating room and placed under general anesthesia. She was placed on table in the supine position. A transverse incision was planned over the lateral aspect of the neck on the right. After prepping and draping and after an appropriate preoperative pause, the incision was created. The underlying platysma muscle was identified and incised. A blunt tissue plane anterior to the sternocleidomastoid muscle was used to gain access to the prevertebral space. Self-retaining retractors were placed in the wound for optimal exposure. After confirming appropriate level with C-arm fluoroscopy, an annulotomy was performed in the C4-C5 disk space. All disk material as well as anterior and posterior osteophytes were removed. After decompressing the C4-C5 segment, a 6-mm lordotic PEEK cage packed with allograft and autograft material was placed in the interbody space. An anterior cervical plate was then fashioned to the front spine and secured with a total of 4 screws. Midline and lateral structures were then inspected and found to be free from significant trauma. The wound was irrigated. Hemostasis was maintained throughout. The wound was then closed in anatomic layers and a pressure dressing was applied. There were no known procedural complications. Job ID: [id number]
[2019-02-05] MEDS ORDERED: Cyclobenzaprine 10 MG TAB ONE (10:33)
== END 2019-02-05 10:40 | disposition home or self-care (01) ==
LOC: SDC 05:39
PROVIDERS: ATTEND Neurological Surgery
PROC: 0RG10A0 Fusion of Cervical Vertebral Joint with Interbody Fusion Device, Anterior Approach, Anterior Column, Open Approach (ICD-10-PCS; principal; 2019-02-05)
PROC: 0RT30ZZ Resection of Cervical Vertebral Disc, Open Approach (ICD-10-PCS; 2019-02-05)
DX: M48.02 Spinal stenosis, cervical region (principal); G95.9 Disease of spinal cord, unspecified; M54.12 Radiculopathy, cervical region; E11.9 Type 2 diabetes mellitus without complications; J44.9 Chronic obstructive pulmonary disease, unspecified; I10 Essential (primary) hypertension; E78.00 Pure hypercholesterolemia, unspecified; E03.9 Hypothyroidism, unspecified; I48.0 Paroxysmal atrial fibrillation; F41.9 Anxiety disorder, unspecified; E78.5 Hyperlipidemia, unspecified; Z79.51 Long term (current) use of inhaled steroids; Z79.82 Long term (current) use of aspirin; Z79.83 Long term (current) use of bisphosphonates; Z79.84 Long term (current) use of oral hypoglycemic drugs; Z79.899 Other long term (current) drug therapy; Z91.041 Radiographic dye allergy status; Z88.6 Allergy status to analgesic agent; Z88.8 Allergy status to other drugs, medicaments and biological substances
CPT/HCPCS: 76000; C1713; C1776; J3010

== ENCOUNTER 2019-04-03 00:03 | Observation (INO) | payer MEDICARE ==
[2019-04-03 00:36] LABS: #Basophils 0.1 thou/uL (0.0-0.2); #Eosinphils 0.4 thou/uL (0.0-0.7); #Lymphocytes 1.9 thou/uL (1.20-3.40); #Monocytes 0.5 thou/uL (0.11-0.59); #Neutrophils 5.6 thou/uL (1.40-6.50); %Basophils 1.3 % (0.0-1.0); %Eosinophils 4.9 % (0.0-10.0); %Lymphocytes 21.8 % (21.0-51.0); %Monocytes 5.8 % (0.0-10.0); %Neutrophils 66.2 % (42.0-75.0); Hemoglobin 12.5 g/dL (12.0-16.0); Mean Corpuscular HGB CONC 32.2 g/dL (32.0-36.0); Mean Corpuscular Hemoglobin 30.5 pg (27.0-31.0); Mean Corpuscular Volume 94.7 fL (78.0-98.0); Mean Platelet Volume 8.5 fL (7.4-10.4); Platelet Count 197 thou/uL (130-400); RBC Distribution Width 16.9 % (11.5-14.5); Red Blood Cell (RBC) Count 4.09 mill/uL (4.20-5.40); White Blood Cell (WBC) Count 8.5 thou/uL (4.8-10.8)
[2019-04-03 01:02] LABS: ALT (SGPT) 12 U/L (8-55); AST (SGOT) 20 U/L (5-34); Alkaline Phosphatase 127 U/L (40-150); Anion Gap 13 mmol/L (10-20); BUN (Urea Nitrogen) 49 mg/dL (9.8-20.1); Bilirubin, Total 0.6 mg/dL (0.2-1.2); Calc. Creatinine Clearance 0 mL/min (70-130); Calcium 9.6 mg/dL (7.8-10.44); Carbon Dioxide 31 mmol/L (23-31); Chloride 100 mmol/L (98-107); Estimated GFR-MDRD 25; Glucose 96 mg/dL (80-115); Lipase 55 U/L (8-78); Potassium 3.4 mmol/L (3.5-5.1); Sodium 141 mmol/L (136-145)
[2019-04-03] MEDS ORDERED: Aspirin Chewable 81 MG TAB ONE (01:32)
[2019-04-03] MEDS ORDERED: Nitroglycerin 0.4 MG TAB 1 EACH ONE (01:32)
[2019-04-03] MEDS ORDERED: Ondansetron PF 4 MG/2 ML Vial ONE (01:32)
[2019-04-03 04:02] LABS: Troponin I Less than 0.010 ng/mL (< 0.028)
[2019-04-03 04:57] VITALS: BMI 28.3
[2019-04-03 06:52] LABS: Troponin I 0.013 ng/mL (< 0.028)
--- NOTE | 2019-04-03 07:03 | RAD ---
CHEST 1 VIEW: Date: 04/03/19 INDICATION: Chest pain and shortness of breath. COMPARISON: Prior exam dated 11/13/18. FINDINGS: Severe COPD and mild cardiomegaly is stable to the comparison. Dual lead pacemaker is stable. No pleu ral effusion or pneumothorax is evident. No acute osseous abnormality is noted. IMPRESSION: No acute abnormality. Stable cardiomegaly. POS: BH
[2019-04-03] MEDS ORDERED: Dextrose 5% in Water 1,000 ML IV PRN (08:10)
[2019-04-03] MEDS ORDERED: Dextrose 50% Abboject 50 ML SYRINGE IVP PRN (08:10)
[2019-04-03] MEDS ORDERED: Insulin Regular 300 UNITS/3 ML VIAL SC PRN (08:10)
[2019-04-03] MEDS ORDERED: Sodium Chloride 0.9% 1,000 ML IV SCH ×2 (08:15→10:45)
[2019-04-03] MEDS ORDERED: tiZANidine HCl 4 MG TAB PO PRN (08:18)
[2019-04-03] MEDS ORDERED: traZODone HCl 50 MG TAB PO PRN (08:18)
[2019-04-03 08:19] LABS: Anion Gap 11 mmol/L (10-20); BUN (Urea Nitrogen) 48 mg/dL (9.8-20.1); Calc. Creatinine Clearance 39 mL/min (70-130); Calcium 9.1 mg/dL (7.8-10.44); Carbon Dioxide 32 mmol/L (23-31); Cardiac Risk 2.2 (Less than 4.5); Chloride 104 mmol/L (98-107); Cholesterol 100 mg/dl (< 200 Desired); Estimated GFR-MDRD 30; Glucose 99 mg/dL (80-115); HDL Cholesterol 45 mg/dL (>60 Neg Risk); LDL Cholesterol, Calculated 44 mg/dL; Potassium 3.7 mmol/L (3.5-5.1); Sodium 143 mmol/L (136-145); Triglycerides 56 mg/dL (Less than 150)
[2019-04-03] MEDS ORDERED: PROVENTIL INHALER 6.7 G (200 INHALATIONS) INH PRN (08:20)
[2019-04-03] MEDS ORDERED: NALOXONE HCL SL SCH (09:00)
[2019-04-03] MEDS ORDERED: BUPRENORPHINE HCL SL SCH (09:00)
[2019-04-03] MEDS ORDERED: LIRAGLUTIDE SC SCH (09:00)
[2019-04-03] MEDS ORDERED: Aspirin Chewable 81 MG TAB PO SCH (09:00)
[2019-04-03] MEDS: Furosemide 40 MG TAB PO SCH ×2 (09:26→16:28)
[2019-04-03] MEDS: Acetaminophen 325 MG TAB PO SCH ×4 (09:26→21:00)
[2019-04-03] MEDS: Allopurinol 100 MG TAB PO SCH ×2 (09:27→21:00)
--- NOTE | 2019-04-03 09:29 | CT ---
CT CHEST WITHOUT CONTRAST: DATE: 04/03/2019. PROVIDED CLINICAL HISTORY: Subclavian steal. FINDINGS: Correlation is made with the carotid Doppler ultrasound 10/30/2018. The heart, pericardium, and great vessels are suboptimally evaluated in the absence of IV contrast ma terial. There is prominent calcification present at the origin of the left subclavian artery, likely producing severe stenosis/occlusion given the retrograde flow seen in the left vertebral artery on p rior carotid Doppler. Left subclavian cardiac pacing device and additional vascular calcifications a re seen. Mitral annular calcifications are noted. There is no evidence for thoracic lymph node enlargement with lack of IV contrast limiting assessment for such. Subsegmental atelectatic changes are seen at the right lung base and involving the lingula. The airway appears patent and of normal caliber. There is no pleural fluid or pneumothorax apparent. The visualized portions of the upper abdomen demonstrate an unremarkable unenhanced CT appearance. The osseous structures demonstrate no concerning lytic or blastic lesions. IMPRESSION: 1. Conspicuous calcification at the origin of the left subclavian artery, likely producing severe st enosis/occlusion given the retrograde flow seen in the left vertebral artery on prior carotid Doppler ultrasound. 2. Other chronic findings as above. POS: C
--- NOTE | 2019-04-03 14:19 | HP ---
CHIEF COMPLAINT: Chest pain. HISTORY OF PRESENT ILLNESS: The patient is a 63-year-old female, who had a complete cardiac workup done in October including normal stress test that Dr. Mckeon cosigned that she had noncardiac chest pain. She states, however, that the pain she is having now is distinctly different and for that reason, she was placed into the hospital. On my evaluation this morning getting the history and physical, I was able to reproduce her chest pain with palpation of her anterior chest wall reproducing the intense painful chest pain. There is noted some significant blood pressure difference between the two arms. She has a history of possible subclavian steal. This has never been worked up as an outpatient as was intended due to general patient noncompliance and at this point, we will take this opportunity to put her on NSAIDs, workup for subclavian steal from there. PAST MEDICAL HISTORY: Significant for type 2 diabetes, hypothyroidism, hyperlipidemia, high cholesterol, renal dysfunction, COPD, gout, irregular heartbeat, opioid dependence, anxiety, insomnia, GERD, and hyperuricemia as well as osteopenia. PAST SURGICAL HISTORY: Includes cholecystectomy, hysterectomy, tonsillectomy, abdominal cellulitis, pacemaker placement, and most recently this year she has had surgery per Dr. Macdonald for surgical stenosis. This was done 02/05/2019, for cervical myelopathy. She had an anterior cervical diskectomy and fusion of C4 and C5. PAST PSYCHIATRIC HISTORY: Significant for the aforementioned anxiety and depression. SOCIAL HISTORY: Drinks socially. She is a current tobacco smoker, who states she has recently quit. FAMILY HISTORY: Noncontributory. ALLERGIES: ERYTHROMYCIN. SHE STATES THAT IODINE CONTRAST MATERIAL, BUT THIS WAS FURTHER INVESTIGATED AND FELT NOT TO BE A TRUE ALLERGY, AND SHE HAS REACTIONS TO NSAIDS. REVIEW OF SYSTEMS: At the time of admission: CONSTITUTIONAL: Negative for chills or fever. HEENT: No nasal drainage, pressure, sinus pain, or sores. CHEST: Chronic mild shortness of breath. No cough. CARDIOVASCULAR: Denies palpitations, but describes pain in the center of her chest, especially with deep breaths and palpation. GI: No nausea, vomiting, or diarrhea. : Denies painful urination, frequency, blood in urine or stool. SKIN: No new rashes or lesions. NEUROLOGIC: No new areas of hypoesthesia, anesthesia, or headaches. HEMOLYTIC/LYMPH: No lower extremity edema, swelling, bruising, or ecchymosis. PSYCHIATRIC: Significant for significantly anxious person. PHYSICAL EXAMINATION: At the time of admission: VITAL SIGNS: Blood pressure is 130/62, pulse 63, 98.1 temperature, O2 saturation 99% on room air, respiratory rate 18, and she weighs 165 pounds. GENERAL: This is a well-developed, well-nourished female, alert, oriented, and cooperative. HEENT: Normocephalic and atraumatic. Pupils are equal, round, and reactive to light. Extraocular muscles are intact. TMs, nares, and pharynx are clear. NECK: Supple. Trachea midline. No mass. No bruit. CHEST: Diminished breath sounds diffusely. Chest wall anteriorly is tender to palpation and reproduces her admitting chest pain. BREAST: Deferred. HEART: Regular rate and rhythm. No murmur. ABDOMEN: Soft and nontender without organomegaly. : Deferred. EXTREMITIES: Without clubbing or cyanosis. She has 2+ edema in bilateral lower extremities. SKIN: No new rashes or lesions. NEUROLOGIC: Cranial nerves are intact. Unable to test gait and cerebellar function. Sensory exam grossly intact. Mental status is at baseline and nonfocal. LABORATORY DATA: On admission shows WBCs 8.5, hemoglobin 12.5, hematocrit 38.7, platelets at 197. Sodium 141, potassium 3.4, chloride is 100, carbon dioxide 31, BUN 49, creatinine 1.0 with a GFR 25 and glucose is 96. Liver functions unremarkable. Cardiac enzymes negative x3. BNP slightly elevated at 232. Liver functions normal. ASSESSMENT: 1. Costochondritis. 2. 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 3. Chronic obstructive pulmonary disease. 4. Euh-gbdnowe-cnmiohoer diabetes. 5. Anxiety disorder. PLAN: Plan will be Tylenol on a scheduled basis as she cannot take NSAIDs. We will go ahead and get a CT angio to further clarify whether she has subclavian steal or not. Once this has been done, we will be able to discharge home probably in the morning. We will do one more round of blood work to see if her renal functions will improve with hydration. Job ID: [id number]
[2019-04-03] MEDS ORDERED: Atorvastatin Calcium 20 MG TAB PO SCH (21:00)
--- NOTE | 2019-04-04 00:12 | CON ---
DATE OF CONSULTATION: 04/03/2019 REQUESTING PHYSICIAN: Kingsley Wallace MD CHIEF COMPLAINT: Chest pain. HISTORY OF PRESENT ILLNESS: The patient is a 63-year-old long-term smoker with hypertension, diabetes, renal insufficiency, and COPD. The patient apparently has a known differential in blood pressures between her two arms and it is well recognized that blood pressures are to be measured using her right arm. She was admitted with chest pain and shortness of breath that she describes as a sensation of squeezing that then lets up over and over and over again. This was associated with shortness of breath and nausea, but no diaphoresis and when asking her about where exactly the pain was, it coincides with an area of point tenderness over a costal cartilage to the left of her sternum. The patient says that over the last 2 weeks or so she has had some mild problems with balance, but has not had any long-standing problems with that. She has not had any dizziness and has not had any arm claudication. She had a carotid ultrasound in October of 2018 that documented retrograde flow in the left vertebral artery and on this admission, she had a CT scan of the chest showing extensive plaque burden in the origin of the left subclavian artery that is certainly consistent with a high-grade stenosis. PAST MEDICAL HISTORY: Significant for diabetes, hypothyroidism, hyperlipidemia, renal insufficiency, COPD, GE reflux and opioid dependence. She has undergone a previous cholecystectomy, hysterectomy, tonsillectomy, dual-chamber pacemaker placement. She had a cervical fusion done at the end of January. The patient claims to have only been about a half a pack a day smoker and recently cut down to the point of quitting. HOME MEDICATIONS: 1. Baby aspirin daily. 2. Glipizide 5 mg in the evening p.r.n. 3. Victoza 1.2 mg subcu daily. 4. Toprol-XL 25 mg daily. 5. Simvastatin 40 mg at bedtime. 6. Synthroid 75 mcg daily. 7. Symbicort 2 puffs daily. 8. Trazodone 50 mg at bedtime p.r.n. 9. Fosamax weekly. 10. P.r.n. albuterol. 11. Lasix 40 mg b.i.d. 12. Aldactone 25 mg daily. 13. Allopurinol 100 mg b.i.d. 14. Protonix 40 mg daily. ALLERGY: Reports allergies to erythromycin. REVIEW OF SYSTEMS: Negative for any eye, speech, facial, or extremity symptoms consistent with TIAs. Negative for any dizziness. Negative for any arm claudication. Positive for lower extremity swelling. Positive for chest pain. Positive for shortness of breath. PHYSICAL EXAMINATION: GENERAL: She is 5 feet 4 inches, weighs 165 and 0.5 pounds, heart rate 64, blood pressure 108/52 in her right arm, temperature 97.9, room air O2 sats 92-93 percent. HEENT: She has no xanthelasma. She is edentulous. NECK: She has a left carotid bruit. LUNGS: She has distant breath sounds. She has decreased force of exhalation when I asked her to blow out hard against my hand. She has regular rate and rhythm. She has a pacemaker visible and palpable in left upper chest. ABDOMEN: Soft and nontender. EXTREMITIES: She has palpable radial and dorsalis pedis pulses. She has extensive enlargement of her lower extremities that seems to represent chronic edema. She has extensive varicosities. LABORATORY DATA: White count is 8.5, hemoglobin 12.5, hematocrit 38.7, platelets 197,000. Electrolytes were normal. BUN 48, creatinine 1.74, glucose 99. Hemoglobin A1c was 6. Cardiac enzymes were normal. IMAGING: Her chest x-ray is consistent with COPD. Has a dual-chamber pacemaker in place. She had a carotid ultrasound last October that showed modest amount of plaque in the carotid bulb, worse on the right than on the left. On the right, her internal carotid velocity has peaked at 89 and common peaked at 90, ratio 0.98 on the left. Her internal carotid velocities peaked at 86 and commons peaked at 86 for a ratio of 1.0. She had antegrade flow in the right vertebral. She had diminished antegrade flow in the left with significant retrograde flow on the left. Her CT scan this hospitalization was without contrast showed extensive aortic arch calcification with extremely heavy plaque burden. The origin of the left subclavian artery showed large pulmonary arteries. IMPRESSION AND RECOMMENDATIONS: This probably represents a coincidental finding of a subclavian stenosis on physical exam. She has got an easily palpable right radial pulse and I was not able to convincingly feel the left one, but she does not have any arm claudication or obvious dizziness. She does describe about a two week period of some balance problems that do not sound like are particularly bad and certainly she has had documented retrograde flow in the left vertebral much longer than she has had those symptoms. She does probably have enough plaque burden in her carotids to warrant annual surveillance and I will be happy to do that if she wishes, but I do not think that the subclavian disease needs to be pursued at this time. Job ID: [id number]
[2019-04-04 05:02] LABS: BUN (Urea Nitrogen) 43 mg/dL (9.8-20.1); Calc. Creatinine Clearance 43 mL/min (70-130); Estimated GFR-MDRD 35; Glucose 95 mg/dL (80-115)
[2019-04-04 05:12] LABS: Anion Gap 15 mmol/L (10-20); Carbon Dioxide 32 mmol/L (23-31); Chloride 105 mmol/L (98-107); Potassium 4.5 mmol/L (3.5-5.1); Sodium 147 mmol/L (136-145)
[2019-04-04] MEDS ORDERED: Levothyroxine Sodium 75 MCG TAB PO SCH (06:00)
[2019-04-04] MEDS ORDERED: Mometasone/Formoterol 120 PUFF INHALER INH SCH (07:00)
[2019-04-04 07:51] VITALS: BP 125/60; TEMP 97.8
[2019-04-04] MEDS ORDERED: Spironolactone 25 MG TAB PO SCH (08:00)
== END 2019-04-04 08:51 | disposition home or self-care (01) ==
LOC: ERS 00:03 → 2SW 03:40
PROVIDERS: ADMIT Specialist; ATTEND Specialist
DX: M94.0 Chondrocostal junction syndrome [Tietze] (principal); I13.0 Hypertensive heart and chronic kidney disease with heart failure and stage 1 through stage 4 chronic kidney disease, or unspecified chronic kidney disease; E11.22 Type 2 diabetes mellitus with diabetic chronic kidney disease; I50.9 Heart failure, unspecified; N18.9 Chronic kidney disease, unspecified; E03.9 Hypothyroidism, unspecified; E78.5 Hyperlipidemia, unspecified; J44.9 Chronic obstructive pulmonary disease, unspecified; F32.9 Major depressive disorder, single episode, unspecified; F41.9 Anxiety disorder, unspecified; G47.00 Insomnia, unspecified; F11.20 Opioid dependence, uncomplicated; K21.9 Gastro-esophageal reflux disease without esophagitis; M10.9 Gout, unspecified; M85.80 Other specified disorders of bone density and structure, unspecified site; I48.91 Unspecified atrial fibrillation; F17.210 Nicotine dependence, cigarettes, uncomplicated; F17.290 Nicotine dependence, other tobacco product, uncomplicated; Z95.0 Presence of cardiac pacemaker; Z88.6 Allergy status to analgesic agent; Z88.1 Allergy status to other antibiotic agents; Z91.041 Radiographic dye allergy status; Z79.82 Long term (current) use of aspirin; Z79.899 Other long term (current) drug therapy
CPT/HCPCS: 71045; 71250; 80048 ×2; 80061; 82962; 83036; 83690; 83880; 84484 ×2; 93005; 94640; 94664; 94760; 96374; 99285; G0378 ×2; 36415; 36416; 80053; 84443; 85025; J2405

== ENCOUNTER 2020-03-31 15:25 | Outpatient (CLI) | payer MEDICARE ==
--- NOTE | 2020-03-31 16:29 | ULT ---
BILATERAL LOWER EXTREMITY VENOUS ULTRASOUND: 03/31/20 COMPARISON: None. HISTORY: Bilateral extremity pain and edema. Elevated D-dimer. TECHNIQUE: Multiplanar power scale and color Doppler images were obtained in a bilateral lower extremity venous u ltrasound. Spectral analysis of the Doppler waveforms were performed. FINDINGS: The bilateral common femoral veins, profunda femoral veins, superficial femoral veins, and popliteal veins are normal in appearance without visible thrombus. These vessels demonstrate normal compression , flow, and augmentation. The posterior tibial veins and greater saphenous veins are also patent. IMPRESSION: No evidence of DVT. POS: EAA
== END 2020-03-31 15:26 | disposition home or self-care (01) ==
LOC: BICULT 15:25
PROVIDERS: ATTEND Specialist
DX: R79.1 Abnormal coagulation profile (principal)
CPT/HCPCS: 93970

== ENCOUNTER 2020-04-24 23:51 | Emergency (ER) | payer MEDICARE ==
[2020-04-25 00:37] LABS: Bacteria/HPF None Seen HPF (None Seen); Bilirubin Negative (Negative); Blood, Urine 1+ (Negative); Clarity Clear (Clear); Glucose, Urine (Dipstick) Normal (Negative); Leukocyte 500 Leu/uL (Negative); Nitrite Negative (Negative); Protein, Urine (Dipstick) 10 mg/dL (Neg-Trace); Urobilinogen Normal mg/dL (Less than 2)
[2020-04-25 01:21] LABS: #Basophils 0.1 thou/uL (0.0-0.2); #Eosinphils 0.5 thou/uL (0.0-0.7); #Lymphocytes 1.2 thou/uL (1.20-3.40); #Monocytes 0.8 thou/uL (0.11-0.59); #Neutrophils 5.5 thou/uL (1.40-6.50); %Basophils 0.9 % (0.0-1.0); %Eosinophils 6.1 % (0.0-10.0); %Lymphocytes 15.1 % (21.0-51.0); %Monocytes 9.7 % (0.0-10.0); %Neutrophils 68.2 % (42.0-75.0); Hemoglobin 12.8 g/dL (12.0-16.0); Mean Corpuscular HGB CONC 32.4 g/dL (32.0-36.0); Mean Corpuscular Hemoglobin 28.1 pg (27.0-31.0); Mean Corpuscular Volume 86.6 fL (78.0-98.0); Mean Platelet Volume 9.8 fL (7.4-10.4); Platelet Count 184 thou/uL (130-400); RBC Distribution Width 18.3 % (11.5-14.5); Red Blood Cell (RBC) Count 4.55 mill/uL (4.20-5.40)
[2020-04-25 01:44] LABS: ALT (SGPT) Less than 7 U/L (8-55); AST (SGOT) 22 U/L (5-34); Alkaline Phosphatase 108 U/L (40-110); Anion Gap 16 mmol/L (10-20); BUN (Urea Nitrogen) 81 mg/dL (9.8-20.1); Bilirubin, Total 0.4 mg/dL (0.2-1.2); CK (CPK) 143 U/L (29-168); Calc. Creatinine Clearance 0 mL/min (70-130); Calcium 9.5 mg/dL (7.8-10.44); Carbon Dioxide 31 mmol/L (23-31); Chloride 95 mmol/L (98-107); Estimated GFR-MDRD 29; Globulin 3.4 g/dL (2.4-3.5); Glucose 105 mg/dL (80-115); Potassium 3.7 mmol/L (3.5-5.1); Protein, Total 7.4 g/dL (6.0-8.3); Sodium 138 mmol/L (136-145)
[2020-04-25] MEDS ORDERED: cefTRIAXone\\ROCEPHIN 1 GM VIAL ONE (01:55)
[2020-04-25] MEDS ORDERED: Aspirin 325 MG TAB ONE (01:56)
[2020-04-25 02:05] LABS: CKMB 3.9 ng/mL (0-6.6)
[2020-04-25] MEDS ORDERED: Acetaminophen 500 MG TAB ONE (02:11)
--- NOTE | 2020-04-25 07:52 | CT ---
PRELIMINARY REPORT/[facility]/EMERGENCY AFTER HOURS PROCEDURE EXAM: CT BRAIN WO CON HISTORY: ER 4.... Patient presents due to multiple falls over the last few days. She says she is not sure why she falls. She says sometimes when she turns around too fast she feels dizzy and sometimes her legs fall asleep causing her fall. She says she has hit her head on the wall once but is uncertai n if she is lost consciousness COMPARISON: CT\SR - CT BRAIN WO CON - 03/27/2015 06:02 PM CDT FINDINGS: No parenchymal hypodensity to suggest acute ischemia or cerebral edema. No hydrocephalus. No intracranial hemorrhage. No extra-axial fluid collections. The contents of the orbits are symmetric across the midline. Stable expansile lytic osseous lesion within the right frontal calvarium. Stable smaller similar-tao earing lesion within the right parietal calvarium. IMPRESSION: 1. No acute intracranial pathology. 2. Stable lytic osseous lesions within the calvarium, unchanged from 2014. ELECTRONICALLY SIGNED BY: Stephen Hill MD Apr 25, 2020 1:12:07 AM CDT This report is intended for review by the ordering physician only, in accordance of law. If you recei ve this report in error, please call [facility] at [phone]. FINAL REPORT Exam: Head CT without contrast HISTORY: Pain. Trauma. COMPARISON: none FINDINGS: Hemorrhage: No intraparenchymal hemorrhage or extra-axial hematoma. Brain parenchyma: Cortical power-white matter differentiation is preserved. No mass effect or midline shift. Basilar cisterns are patent. Ventricular system: Ventricles and sulci are patent and symmetric. Calvarium: Intact. Stable lesions in the right calvarium Sinuses and mastoid air cells: Adequate aeration. IMPRESSION: 1. This report is in agreement with initial report by [facility] 2. No intracranial posttraumatic sequelae. Transcribed Date/Time: 04/25/2020 9:12 AM
--- NOTE | 2020-04-25 08:01 | RAD ---
Exam:3 views left foot HISTORY: Trauma. Pain. COMPARISON: None FINDINGS: Mild bone demineralization. Lis-Franc alignment is maintained. Mild degenerative change in the talonavicular and naviculocuneiform joint space. No fracture, cortical irregularity or periosteal reaction. Markedly dorsal soft tissue swelling. IMPRESSION: Soft tissue swelling, without evidence of fracture
--- NOTE | 2020-04-25 08:10 | RAD ---
Exam: Chest one view HISTORY:Cough. Comparison: 04/03/2019 FINDINGS: Cardiac silhouette:Normal cardiac silhouette. Stable left-sided transvenous pacemaker with lead posit ioned over the right atrium and right ventricle Aorta: Stable atherosclerosis Pulmonary vessels: Normal Costophrenic angles: Clear LUNGS: Chronic lung parenchymal changes, without mass or consolidation. Pneumothorax: None Osseous abnormalities: No acute osseous abnormalities. Incompletely evaluated cervical fusion hardwar e IMPRESSION: No acute cardiopulmonary process. Atherosclerosis.
--- NOTE | 2020-04-25 08:15 | RAD ---
Exam: 3 views of lumbar spine HISTORY: Pain. Trauma. Multiple falls. FINDINGS: 6 lumbar type vertebra. Lumbar spine vertebral body height is maintained. No fracture. Mild loss of disc space height throughout the lumbar spine. Approximately 1.3 mm of anterolisthesis of L3 upon L4. No associated spondylolysis Scattered atherosclerosis of the aorta is noted Visualized bony pelvis and sacrum are intact. IMPRESSION: No fracture. Multilevel mild degenerative change.
--- NOTE | 2020-05-01 14:38 | EKG ---
Test Reason : Blood Pressure : / mmHG Vent. Rate : 091 BPM Atrial Rate : 091 BPM P-R Int : 000 ms QRS Dur : 116 ms QT Int : 378 ms P-R-T Axes : 000 -37 086 degrees QTc Int : 464 ms Sinus rhythm with Premature atrial complexes Left axis deviation Left ventricular hypertrophy with QRS widening and repolarization abnormality Cannot rule out Septal infarct , age undetermined Abnormal ECG Confirmed by ROSALINE GRIGSBY ([id number]), editor book ANISA RUBIN ([id number]) on 05/01/2020 2:38:41 PM Referred By: Confirmed By:ROSALINE GRIGSBY
== END 2020-04-25 04:40 | disposition left against medical advice (07) ==
LOC: ERS 23:51
DX: S09.90XA Unspecified injury of head, initial encounter (principal); S90.32XA Contusion of left foot, initial encounter; R79.89 Other specified abnormal findings of blood chemistry; R05 Cough; N39.0 Urinary tract infection, site not specified; M54.9 Dorsalgia, unspecified; F41.9 Anxiety disorder, unspecified; F32.9 Major depressive disorder, single episode, unspecified; E78.00 Pure hypercholesterolemia, unspecified; E03.9 Hypothyroidism, unspecified; M10.9 Gout, unspecified; J44.9 Chronic obstructive pulmonary disease, unspecified; I10 Essential (primary) hypertension; E11.9 Type 2 diabetes mellitus without complications; F17.210 Nicotine dependence, cigarettes, uncomplicated; Z79.84 Long term (current) use of oral hypoglycemic drugs; Z79.899 Other long term (current) drug therapy; W18.30XA Fall on same level, unspecified, initial encounter
CPT/HCPCS: 70450; 71045; 72100; 80053; 81003; 81015; 82550; 82553; 83880; 84443; 84484; 85025; 87086; 93005; 96365; J0696

== ENCOUNTER 2020-08-27 06:45 | Outpatient (CLI) | payer MEDICARE, OTHER ==
[2020-08-27 10:59] LABS: Prothrombin Time 13.7 sec (12.0-14.7)
[2020-08-27 11:08] LABS: #Basophils 0.1 thou/uL (0.0-0.2); #Eosinphils 0.7 thou/uL (0.0-0.7); #Lymphocytes 1.9 thou/uL (1.20-3.40); #Monocytes 0.5 thou/uL (0.11-0.59); #Neutrophils 4.7 thou/uL (1.40-6.50); %Basophils 1.4 % (0.0-1.0); %Eosinophils 9.4 % (0.0-10.0); %Lymphocytes 24.3 % (21.0-51.0); %Monocytes 5.7 % (0.0-10.0); %Neutrophils 59.2 % (42.0-75.0); Hemoglobin 12.3 g/dL (12.0-16.0); Mean Corpuscular HGB CONC 31.3 g/dL (32.0-36.0); Mean Corpuscular Hemoglobin 28.8 pg (27.0-31.0); Mean Corpuscular Volume 92.2 fL (78.0-98.0); Mean Platelet Volume 9.5 fL (7.4-10.4); Platelet Count 189 thou/uL (130-400); RBC Distribution Width 16.7 % (11.5-14.5); Red Blood Cell (RBC) Count 4.27 mill/uL (4.20-5.40)
[2020-08-27 13:28] LABS: Anion Gap 13 mmol/L (10-20); BUN (Urea Nitrogen) 37 mg/dL (9.8-20.1); Calc. Creatinine Clearance 0 mL/min (70-130); Calcium 8.8 mg/dL (7.8-10.44); Carbon Dioxide 32 mmol/L (23-31); Chloride 102 mmol/L (98-107); Estimated GFR-MDRD 33; Glucose 83 mg/dL (80-115); Potassium 4.5 mmol/L (3.5-5.1); Sodium 142 mmol/L (136-145)
[2020-08-27 17:22] LABS: SARS-CoV-2 MS2 Positive; SARS-CoV-2 N Gene Negative; SARS-CoV-2 S Gene Negative; SARS-CoV-2 by NAA Not Detected (NotDetected); SARS-CoV-2 orf1ab Negative
--- NOTE | 2020-09-03 13:19 | EKG ---
Test Reason : PREOP Blood Pressure : / mmHG Vent. Rate : 084 BPM Atrial Rate : 084 BPM P-R Int : 312 ms QRS Dur : 136 ms QT Int : 418 ms P-R-T Axes : 080 -59 078 degrees QTc Int : 493 ms Atrial-paced rhythm with prolonged AV conduction Left axis deviation Non-specific intra-ventricular conduction block Cannot rule out Septal infarct , age undetermined Abnormal ECG No previous ECGs available Confirmed by DR. Jaky LONG ([id number]) on 09/03/2020 1:19:22 PM Referred By: ANNIKA, Confirmed By:DR. Jaky LONG
== END 2020-08-27 06:46 | disposition home or self-care (01) ==
LOC: LABBT 06:45
PROVIDERS: ATTEND Internal Medicine Cardiovascular Disease
DX: Z01.818 Encounter for other preprocedural examination (principal); I48.91 Unspecified atrial fibrillation; Z20.828 Contact with and (suspected) exposure to other viral communicable diseases
CPT/HCPCS: 80048; 85025; 85610; 93005; U0003; 87635; 93010

== ENCOUNTER 2020-09-01 06:14 | Day surgery (SDC) | payer MEDICARE ==
[2020-08-31 09:52] VITALS: BMI 35.0
[2020-09-01] MEDS ORDERED: PROPOFOL 200 MG/20 ML VIAL ONE (09:50)
--- NOTE | 2020-09-02 11:19 | CCLSPC ---
PROCEDURE: Transesophageal echocardiogram. REASON FOR PROCEDURE: Ms. Bustamante is a pleasant 65-year-old woman with history of atrial fibrillation, pacemaker in place, who had a history of GI bleed and cannot tolerate oral anticoagulant reliably. She underwent a Watchman device implantation on 06/16/2020, and she is here for post Watchman ISADORA. PROCEDURE IN DETAIL: The patient received propofol by Anesthesia specialist. After adequate level of sedation was achieved, the standard transesophageal echocardiogram probe was passed into the esophagus without difficulty. The patient tolerated the procedure well. No complication was noted. RESULTS: The left atrium is moderately enlarged about 5.6 cm in horizontal diameter. The left atrial appendage is well visualized and contains an adequately seated and completely sealed Watchman device in place. No leaks identified. Adequate opacifications noted in the left atrial appendage posterior to the device. At least moderate mitral regurgitation seen with some Coanda effect noted. No pulmonary venous flow reversal is seen. Two left pulmonary veins are well visualized. Right pulmonary vein is also seen. Interatrial septum is with tiny PFO with insignificant flow. The left ventricular systolic function is preserved. No significant pericardial effusion is seen. The right-sided chamber is normal in size. There is at least mild tricuspid regurgitation seen. Pacemaker wires noted in the right-sided chambers. The aortic valve has 3 leaflets, mild sclerosis, no stenosis, and mild aortic regurgitation is seen. Visualized portion of ascending and descending aorta without aneurysm, dissection, or atheroma. CONCLUSION: 1. Adequately seated and completely sealed Watchman device in the left atrial appendage. 2. Moderate left atrial enlargement. 3. Moderate mitral regurgitation. 4. Preserved LVEF. 5. Mild TR and AI. 6. Pacemaker wires in the right-sided chambers. PLAN: Stop oral anticoagulation and start aspirin and Plavix for the next 6 months' duration. Job ID: [id number] [facility]
== END 2020-09-01 09:11 | disposition home or self-care (01) ==
LOC: CCL 06:14
PROVIDERS: ATTEND Internal Medicine Cardiovascular Disease
PROC: B245ZZ4 Ultrasonography of Left Heart, Transesophageal (ICD-10-PCS; principal; 2020-09-01)
DX: I48.0 Paroxysmal atrial fibrillation (principal); I08.1 Rheumatic disorders of both mitral and tricuspid valves; Z79.01 Long term (current) use of anticoagulants; Z79.82 Long term (current) use of aspirin; Z79.84 Long term (current) use of oral hypoglycemic drugs; Z79.899 Other long term (current) drug therapy; Z95.0 Presence of cardiac pacemaker; Z88.1 Allergy status to other antibiotic agents; Z88.6 Allergy status to analgesic agent; Z91.041 Radiographic dye allergy status
CPT/HCPCS: 93312; J2704

== ENCOUNTER 2020-10-06 13:55 | Emergency (ER) | payer MEDICARE ==
[2020-10-06] MEDS ORDERED: Morphine 4 MG/ML VIAL ONE (14:31)
[2020-10-06] MEDS ORDERED: Ondansetron PF 4 MG/2 ML Vial ONE (14:31)
--- NOTE | 2020-10-06 14:36 | RAD ---
RADIOGRAPH CHEST 1 VIEW: DATE: 10/06/2020 HISTORY: 65-year-old female status post acute chest trauma from fall FINDINGS: There is cardiomegaly. There is no evidence of airspace density, pulmonary edema, or pneumothorax. Th e lateral costophrenic angles are not effaced. Upper lobe pulmonary veins are mildly dilated. Dual-lead transvenous permanent pacemaker with left-sided generator. IMPRESSION: 1) No acute pulmonary findings. 2) cardiomegaly without overt congestive heart failure.
[2020-10-06 14:41] LABS: #Basophils 0.1 thou/uL (0.0-0.2); #Eosinphils 0.5 thou/uL (0.0-0.7); #Lymphocytes 1.4 thou/uL (1.20-3.40); #Monocytes 0.4 thou/uL (0.11-0.59); #Neutrophils 5.9 thou/uL (1.40-6.50); %Basophils 0.9 % (0.0-1.0); %Eosinophils 5.8 % (0.0-10.0); %Lymphocytes 17.3 % (21.0-51.0); %Monocytes 4.4 % (0.0-10.0); %Neutrophils 71.6 % (42.0-75.0); Mean Corpuscular HGB CONC 30.8 g/dL (32.0-36.0); Mean Corpuscular Hemoglobin 28.8 pg (27.0-31.0); Mean Corpuscular Volume 93.7 fL (78.0-98.0); Mean Platelet Volume 9.7 fL (7.4-10.4); Platelet Count 180 thou/uL (130-400); Red Blood Cell (RBC) Count 3.83 mill/uL (4.20-5.40); White Blood Cell (WBC) Count 8.2 thou/uL (4.8-10.8)
[2020-10-06 14:44] LABS: INR-International Normal Ratio 1.1; PTT 30.6 sec (22.9-36.1); Prothrombin Time 14.1 sec (12.0-14.7)
--- NOTE | 2020-10-06 14:56 | CT ---
CT HEAD WITHOUT CONTRAST: 10/06/20 INDICATIONS: Fall with injury to head and face. Comparison made to CT head 04/25/20. No evidence of intracranial hemorrhage. Ventricles have normal size and position. Very mild ischemic white matter changes appear stable. No mass, hemorrhage, infarct, or edema. Paranasal sinuses and mastoids are clear. Lucent lesions in the right calvarium have been previously described and remain stable. IMPRESSION: No acute process. POS: [facility]
--- NOTE | 2020-10-06 14:58 | CT ---
CT FACIAL BONES: 10/06/20 INDICATIONS: Injury to face and nose. FINDINGS: Soft tissue swelling and air is seen in the soft tissues overlying the nasal ridge. There is mildly d epressed fracture involving the nasal ridge and right nasal bone. The orbits appear intact. Lamina papyracea intact. Paranasal sinuses are well aerated and clear. The maxilla appears intact. Zygoma appear intact. Mandible appears intact. Lucent area in the right frontal bone is a stable finding. IMPRESSION: Nasal bone fractures with slight flattening of the nasal ridge and slight displacement of the right n janes bone near the nasal ridge. Soft tissue swelling over the nasal ridge. POS: [facility]
[2020-10-06 15:00] LABS: ALT (SGPT) 8 U/L (8-55); AST (SGOT) 12 U/L (5-34); Albumin 3.8 g/dL (3.4-4.8); Alkaline Phosphatase 147 U/L (40-110); Anion Gap 16 mmol/L (10-20); BUN (Urea Nitrogen) 33 mg/dL (9.8-20.1); Bilirubin, Total 0.5 mg/dL (0.2-1.2); CK (CPK) 75 U/L (29-168); Calc. Creatinine Clearance 0 mL/min (70-130); Calcium 8.5 mg/dL (7.8-10.44); Carbon Dioxide 28 mmol/L (23-31); Chloride 105 mmol/L (98-107); Estimated GFR-MDRD 36; Globulin 2.6 g/dL (2.4-3.5); Glucose 178 mg/dL (80-115); Potassium 4.8 mmol/L (3.5-5.1); Protein, Total 6.4 g/dL (6.0-8.3); Sodium 144 mmol/L (136-145)
[2020-10-06 15:29] LABS: Bacteria/HPF None Seen HPF (None Seen); Bilirubin Negative (Negative); Blood, Urine 2+ (Negative); Clarity Clear (Clear); Glucose, Urine (Dipstick) Normal (Negative); Ketone, Urine Negative (Negative); Leukocyte Negative Leu/uL (Negative); Nitrite Negative (Negative); Protein, Urine (Dipstick) Negative (Neg-Trace); RBC/HPF 0-3 HPF (0-3); Specific Gravity, Urine 1.008 (1.002-1.036); Squamous Epithelial 0-3 HPF (0-3); Urobilinogen Normal mg/dL (Less than 2); WBC/HPF 0-3 HPF (0-3); pH, Urine 5.5 (5.0-9.0)
[2020-10-06] MEDS ORDERED: Boostrix 0.5 ML (Tdap) VIAL ONE (16:56)
== END 2020-10-06 17:10 | disposition home or self-care (01) ==
LOC: ERS 13:55
DX: I50.9 Heart failure, unspecified (principal); S02.2XXA Fracture of nasal bones, initial encounter for closed fracture; W19.XXXA Unspecified fall, initial encounter; E11.9 Type 2 diabetes mellitus without complications; E03.9 Hypothyroidism, unspecified; E78.00 Pure hypercholesterolemia, unspecified; J44.9 Chronic obstructive pulmonary disease, unspecified
CPT/HCPCS: 36415; 70450; 70486; 71045; 80053; 81003; 81015; 82550; 83880; 84484; 85025; 85610; 85730; 90471; 90715; 93005; 96374; 96375; J2270; J2405

== ENCOUNTER 2020-10-22 01:28 | Observation (INO) | payer MEDICARE ==
[2020-10-22 02:16] LABS: #Basophils 0.1 thou/uL (0.0-0.2); #Eosinphils 0.1 thou/uL (0.0-0.7); #Lymphocytes 0.7 thou/uL (1.20-3.40); #Monocytes 0.3 thou/uL (0.11-0.59); #Neutrophils 9.7 thou/uL (1.40-6.50); %Basophils 0.6 % (0.0-1.0); %Lymphocytes 6.3 % (21.0-51.0); %Neutrophils 89.1 % (42.0-75.0); Hemoglobin 11.2 g/dL (12.0-16.0); Mean Corpuscular HGB CONC 30.9 g/dL (32.0-36.0); Mean Corpuscular Hemoglobin 28.7 pg (27.0-31.0); Mean Corpuscular Volume 92.9 fL (78.0-98.0); Mean Platelet Volume 9.7 fL (7.4-10.4); Platelet Count 192 thou/uL (130-400); RBC Distribution Width 16.9 % (11.5-14.5); Red Blood Cell (RBC) Count 3.92 mill/uL (4.20-5.40); White Blood Cell (WBC) Count 10.9 thou/uL (4.8-10.8)
[2020-10-22 02:35] LABS: ALT (SGPT) 13 U/L (8-55); AST (SGOT) 29 U/L (5-34); Albumin 3.8 g/dL (3.4-4.8); Alkaline Phosphatase 147 U/L (40-110); Anion Gap 18 mmol/L (10-20); BUN (Urea Nitrogen) 24 mg/dL (9.8-20.1); Bilirubin, Total 1.3 mg/dL (0.2-1.2); Calc. Creatinine Clearance 0 mL/min (70-130); Carbon Dioxide 28 mmol/L (23-31); Chloride 102 mmol/L (98-107); Globulin 3.5 g/dL (2.4-3.5); Glucose 130 mg/dL (80-115); Potassium 4.8 mmol/L (3.5-5.1); Protein, Total 7.3 g/dL (6.0-8.3); Sodium 143 mmol/L (136-145)
[2020-10-22 02:58] LABS: CKMB 2.8 ng/mL (0-6.6)
[2020-10-22] MEDS ORDERED: Nitroglycerin 2% Ointment 1 INCH/1 GM Packet ONE (03:39)
[2020-10-22] MEDS ORDERED: Furosemide 40 MG/4 ML VIAL ONE (03:39)
[2020-10-22 05:18] LABS: Troponin I 0.047 ng/mL (< 0.028)
[2020-10-22] MEDS ORDERED: PROVENTIL INHALER 6.7 G (200 INHALATIONS) INH PRN (08:22)
[2020-10-22] MEDS ORDERED: Acetaminophen 325 MG TAB PO PRN (08:23)
--- NOTE | 2020-10-22 08:28 | RAD ---
FRONTAL RADIOGRAPH CHEST: Date: 10/22/2020 COMPARISON: 10/06/2020. HISTORY: Chest pain, clinical concern for COVID infection. FINDINGS: Stable prominence of the cardiac silhouette. Density in the AP window suggests a left atrial appendag e device. No pneumothorax or pleural fluid. No focal consolidation or alveolar edema. Mild increased linear interstitial density in the perihilar regions and lung bases noted, right greater than left, n ew when compared to prior imaging. IMPRESSION: Mild new nonspecific interstitial prominence. Findings could be related to COVID infection in the pro per clinical setting. Clinical correlation is required. No focal consolidation or alveolar edema. POS: [facility]
[2020-10-22] MEDS ORDERED: Dextrose 5% in Water 1,000 ML IV PRN (08:30)
[2020-10-22] MEDS ORDERED: Insulin Regular 300 UNITS/3 ML VIAL SC PRN (08:30)
[2020-10-22] MEDS ORDERED: Dextrose 50% Abboject 50 ML SYRINGE IVP PRN (08:30)
--- NOTE | 2020-10-22 08:54 | HP ---
CHIEF COMPLAINT: Exacerbation of CHF. HISTORY OF PRESENT ILLNESS: The patient is a 65-year-old female, who over the last several days has had increasing shortness of breath and dyspnea with exertion. She finally felt too weak and short winded, so that she came in to the emergency room. There, her BNP was noted to be in the 800s, which is the highest it has ever been for her. At this point, Lasix was given to the patient and Dr. Wallace was contacted to put her in for observation and further evaluation. PAST MEDICAL HISTORY: Significant for prior coronary artery disease such as paroxysmal atrial fibrillation, cardiac pacemaker placement in situ, sick-sinus syndrome, long-term use of antiarrhythmic medication in the presence of a Watchman in the atrial appendage. She also has a history of GI bleed. She has type-2 diabetes, mild hypothyroidism, hyperlipidemia, renal dysfunction, COPD, gout, opioid dependence, anxiety, insomnia, GERD, and then osteopenia. PAST SURGICAL HISTORY: Includes cholecystectomy, hysterectomy, tonsillectomy, abdominal cellulitis, pacemaker placement, cervical spine stenosis surgery of C4 and C5, aforementioned Watchman procedure, and bilateral knee replacements. PAST PSYCHIATRIC HISTORY: Significant for anxiety, depression, and drug abuse. SOCIAL HISTORY: She continues to drink socially. She has been a tobacco smoker in the past, but states she has quit. FAMILY HISTORY: Noncontributory. ALLERGIES: ERYTHROMYCIN, IODINE, LATER RULED OUT NOT TO BE A TRUE ALLERGY, BUT A SIDE EFFECT. ALSO, SHE HAS TROUBLE WITH NSAIDS. REVIEW OF SYSTEMS: CONSTITUTIONAL: Negative for chills or fever. HEENT: No nasal drainage, sinus pressure, drainage, or sores. CHEST: She admits to shortness of breath, but no cough. Her shortness of breath is chronic. CARDIOVASCULAR: She denies any chest pain or palpitations. GI: No nausea, vomiting, diarrhea, or blood. : Denies painful urination or blood in urine or stool. SKIN: Shows diffuse ecchymotic bruising from recent fall, at which time she fractured her nasal bones. NEUROLOGIC: Mental status is clear. Complains of mild headache. No areas of anesthesia or hypesthesia. HEMOLYTIC LYMPH: She has 3+ edema in the lower extremities that is chronic. PHYSICAL EXAMINATION: VITAL SIGNS: At the time of admission, blood pressure is 141/82, O2 saturation 97% on room air, respirations 17, pulse 60, temperature 98.3. GENERAL: This is an elderly obese female with obvious trauma to the face. HEENT: Normocephalic, looks very traumatized with recent nasal fracture and fall. Pupils are equal, round, and reactive to light. Bilateral lids show erythema and irritation. Sclerae are nonicteric. NECK: Supple. Trachea midline. CHEST: Clear to auscultation at the time of my evaluation. BREASTS: Deferred. HEART: Regular rate and rhythm. No murmur. ABDOMEN: Soft, nontender without organomegaly. There is bruising suprapubically. EXTREMITIES: With 4+ edema in the lower extremity and bruising around the knees. The knees are also bilaterally warm to touch. SKIN: With the aforementioned ecchymosis and bruising at the knees suprapubically and face. NEUROLOGIC: Cranial nerves are intact. Unable to test gait and cerebellar function at this time. Sensory exam is grossly intact. Mental status is clear. DIAGNOSTIC DATA: Chest x-ray shows mildly enlarged heart, but no other acute findings. LABORATORY DATA: WBCs 10.9, hemoglobin 11.2, hematocrit 36.4 with platelets at 192. Sodium 143, potassium 4.8, chloride 102, CO2 is 28, BUN 24, creatinine 1.17 with a GFR 46, calcium 9, total bilirubin 1.3, AST 29, ALT 13, alkaline phosphatase 147, CK-MB 2.8. Troponins indeterminate at 0.051 and 0.047. BNP elevated at 890. ASSESSMENT: 1. Exacerbation of CHF. 2. Status post fall with fresh nasal fractures and ecchymosis. 3. Generalized anxiety disorder. 4. Elevated troponins, probably demand ischemia. PLAN: Plan is to monitor her on telemetry. Continue diuresis. Get a recent echocardiogram and ask Dr. Mckeon to come by and check on her, and then we will serially re-evaluate her, and we will continue her diuresis. The face time with this patient was 45 minutes, and total time to dictate and prepare the chart and order her medications came to an hour. Job ID: [id number]
[2020-10-22] MEDS ORDERED: VICTOZA 1.8 MG SC SCH (09:00)
[2020-10-22 09:01] LABS: Troponin I 0.051 ng/mL (< 0.028)
[2020-10-22] MEDS: Apixaban 5 MG TAB PO SCH ×2 (10:16→21:21)
[2020-10-22] MEDS: Citalopram 20 MG TAB PO SCH (10:17)
[2020-10-22] MEDS: Flecainide 50 MG TAB PO SCH ×2 (10:17→21:21)
[2020-10-22] MEDS: Aspirin 81 mg Enteric Coated Tablet PO SCH (10:18)
[2020-10-22] MEDS: Furosemide 40 MG/4 ML VIAL SLOW IVP SCH ×2 (10:18→21:32)
[2020-10-22] MEDS: Gentamicin Ophth Ointment 0.3% 3.5 gm Tube EA EYE SCH ×4 (10:18→21:22)
[2020-10-22] MEDS: Buprenorphine HCl 2 MG SL TAB SL SCH (10:19)
[2020-10-22] MEDS: metFORMIN 500 MG TAB PO SCH (16:11)
[2020-10-22] MEDS: Mometasone 200 MCG/Formoterol 5 MCG 120 PUFF INHALER INH SCH (18:30)
[2020-10-22] MEDS: Atorvastatin Calcium 20 MG TAB PO SCH (21:21)
[2020-10-23] MEDS: Gentamicin Ophth Ointment 0.3% 3.5 gm Tube EA EYE SCH ×7 (02:54→23:43)
[2020-10-23] MEDS: Levothyroxine Sodium 112 MCG TAB PO SCH (05:39)
[2020-10-23] MEDS ORDERED: Tiotropium Bromide 4 GM INHALER IH SCH (07:00)
[2020-10-23] MEDS: Tiotropium Bromide 4 GM INHALER IH SCH (07:31)
[2020-10-23] MEDS: Mometasone 200 MCG/Formoterol 5 MCG 120 PUFF INHALER INH SCH ×2 (07:31→18:09)
[2020-10-23] MEDS: Aspirin 81 mg Enteric Coated Tablet PO SCH (08:51)
[2020-10-23] MEDS: Flecainide 50 MG TAB PO SCH ×2 (08:51→20:45)
[2020-10-23] MEDS: Citalopram 20 MG TAB PO SCH (08:52)
[2020-10-23] MEDS: Buprenorphine HCl 2 MG SL TAB SL SCH (08:53)
[2020-10-23] MEDS: Apixaban 5 MG TAB PO SCH (08:53)
[2020-10-23] MEDS: Furosemide 40 MG/4 ML VIAL SLOW IVP SCH ×2 (08:53→20:45)
[2020-10-23 12:00] VITALS: BMI 34.8
[2020-10-23] MEDS ORDERED: Clopidogrel Bisulfate 75 MG TAB PO SCH (12:00)
[2020-10-23] MEDS: metFORMIN 500 MG TAB PO SCH (16:31)
[2020-10-23] MEDS: Atorvastatin Calcium 20 MG TAB PO SCH (20:45)
[2020-10-24] MEDS: Levothyroxine Sodium 112 MCG TAB PO SCH (05:43)
[2020-10-24] MEDS: Gentamicin Ophth Ointment 0.3% 3.5 gm Tube EA EYE SCH ×4 (06:12→16:09)
[2020-10-24] MEDS: Mometasone 200 MCG/Formoterol 5 MCG 120 PUFF INHALER INH SCH (07:30)
[2020-10-24] MEDS: Tiotropium Bromide 4 GM INHALER IH SCH (07:31)
[2020-10-24] MEDS ORDERED: Clopidogrel Bisulfate 75 MG TAB PO SCH (09:00)
[2020-10-24] MEDS: Aspirin 81 mg Enteric Coated Tablet PO SCH (09:06)
[2020-10-24] MEDS: Flecainide 50 MG TAB PO SCH (09:06)
[2020-10-24] MEDS: Citalopram 20 MG TAB PO SCH (09:07)
[2020-10-24] MEDS: Furosemide 40 MG/4 ML VIAL SLOW IVP SCH (09:09)
[2020-10-24] MEDS: Buprenorphine HCl 2 MG SL TAB SL SCH (10:49)
[2020-10-24 15:49] VITALS: BP 117/58; TEMP 97.9
[2020-10-24] MEDS: metFORMIN 500 MG TAB PO SCH (17:23)
--- NOTE | 2020-10-30 15:07 | EKG ---
Test Reason : Blood Pressure : / mmHG Vent. Rate : 068 BPM Atrial Rate : 068 BPM P-R Int : 176 ms QRS Dur : 114 ms QT Int : 410 ms P-R-T Axes : 049 -53 028 degrees QTc Int : 435 ms Normal sinus rhythm Left anterior fascicular block Minimal voltage criteria for LVH, may be normal variant Septal infarct , age undetermined Abnormal ECG Confirmed by ROSALINE GRIGSBY ([id number]), slot editor ANISA RUBIN ([id number]) on 10/30/2020 3:06:43 PM Referred By: Confirmed By:ROSALINE GRIGSBY
== END 2020-10-24 17:59 | disposition home or self-care (01) ==
LOC: ERS 01:28 → 2NO 03:35
PROVIDERS: ADMIT Student in an Organized Health Care Education/Training Program; ATTEND Student in an Organized Health Care Education/Training Program
DX: I50.9 Heart failure, unspecified (principal); I25.10 Atherosclerotic heart disease of native coronary artery without angina pectoris; I49.5 Sick sinus syndrome; F41.1 Generalized anxiety disorder; F32.9 Major depressive disorder, single episode, unspecified; E11.9 Type 2 diabetes mellitus without complications; E03.9 Hypothyroidism, unspecified; E78.5 Hyperlipidemia, unspecified; J44.9 Chronic obstructive pulmonary disease, unspecified; K21.9 Gastro-esophageal reflux disease without esophagitis; Z87.891 Personal history of nicotine dependence; Z88.6 Allergy status to analgesic agent; Z95.0 Presence of cardiac pacemaker
CPT/HCPCS: 71045; 80053; 82553; 82962 ×3; 83880; 84484 ×2; 85025; 93005; 93306; 94640 ×3; 94760; 96374; 96376 ×2; 99285; G0378 ×4; 36415; 36416; J0571; J1815; J1940

== ENCOUNTER 2021-02-22 11:43 | Inpatient (IN) | payer MEDICARE ==
[2021-02-22] MEDS ORDERED: Morphine 4 MG/ML VIAL ONE ×2 (12:15→12:24)
[2021-02-22] MEDS ORDERED: diphenhydrAMINE 50 MG/ML VIAL ONE (12:25)
[2021-02-22] MEDS ORDERED: methylPREDNISolone Sod Succ/PF 125 MG/2 ML VIAL ONE (12:25)
[2021-02-22] MEDS ORDERED: Famotidine/PF 20 mg/2ml Vial ONE (12:25)
[2021-02-22 13:08] LABS: #Eosinphils 0.3 thou/uL (0.0-0.7); #Lymphocytes 1.2 thou/uL (1.20-3.40); #Monocytes 0.5 thou/uL (0.11-0.59); #Neutrophils 7.2 thou/uL (1.40-6.50); %Basophils 0.4 % (0.0-1.0); %Eosinophils 2.8 % (0.0-10.0); %Lymphocytes 12.9 % (21.0-51.0); %Neutrophils 78.8 % (42.0-75.0); Mean Corpuscular Hemoglobin 26.1 pg (27.0-31.0); Mean Corpuscular Volume 84.1 fL (78.0-98.0); Mean Platelet Volume 9.9 fL (7.4-10.4); Platelet Count 263 thou/uL (130-400); RBC Distribution Width 18.5 % (11.5-14.5); Red Blood Cell (RBC) Count 3.46 mill/uL (4.20-5.40); White Blood Cell (WBC) Count 9.1 thou/uL (4.8-10.8)
[2021-02-22 13:37] LABS: ALT (SGPT) 9 U/L (8-55); AST (SGOT) 22 U/L (5-34); Albumin 4.1 g/dL (3.4-4.8); Alkaline Phosphatase 139 U/L (40-110); Anion Gap 18 mmol/L (10-20); BUN (Urea Nitrogen) 76 mg/dL (9.8-20.1); Bilirubin, Total 0.4 mg/dL (0.2-1.2); CK (CPK) 91 U/L (29-168); Calc. Creatinine Clearance 0 mL/min (70-130); Carbon Dioxide 24 mmol/L (23-31); Globulin 3.2 g/dL (2.4-3.5); Glucose 192 mg/dL (80-115); Lipase 80 U/L (8-78); Protein, Total 7.3 g/dL (5.8-8.1)
[2021-02-22 13:46] LABS: Chloride 103 mmol/L (98-107); Potassium 5.3 mmol/L (3.5-5.1); Sodium 140 mmol/L (136-145)
[2021-02-22] MEDS ORDERED: Albuterol Sulfate 2.5 mg/3 ml Neb ONE (14:06)
[2021-02-22 15:56] LABS: PTT 30.1 sec (22.9-36.1); Prothrombin Time 13.1 sec (12.0-14.7)
[2021-02-22] MEDS ORDERED: Heparin 25,000 units/D5W 500 ML ONE (16:30)
[2021-02-22] MEDS ORDERED: Heparin 10,000 UNITS/ 10 ML VIAL ONE (16:30)
[2021-02-22] MEDS ORDERED: Ondansetron ODT 4 MG TAB SL PRN (18:30)
[2021-02-22] MEDS ORDERED: Ondansetron PF 4 MG/2 ML Vial IVP PRN (18:30)
[2021-02-22] MEDS ORDERED: Acetaminophen 325 MG TAB PO PRN (18:30)
[2021-02-22] MEDS ORDERED: Ondansetron HCl/PF 8 MG in Sodium Chloride 0.9% 50 ML IVPB PRN (20:23)
[2021-02-22] MEDS ORDERED: Dextrose 5% in Water 1,000 ML IV PRN (20:30)
[2021-02-22] MEDS ORDERED: Dextrose 50% Abboject 50 ML SYRINGE IVP PRN (20:30)
[2021-02-22 21:19] LABS: Amphetamine Not Detected (NotDetected); Barbiturates Screen Not Detected (NotDetected); Benzodiazepine Screen Not Detected (NotDetected); Cocaine Metabolite Screen Not Detected (NotDetected); Medtox Control Line Valid? VALID (VALID); Medtox Reader # READER 4; Methadone Not Detected (NotDetected); Methamphetamine Not Detected (NotDetected); Opiate Screen Detected (NotDetected); Oxycodone Screen Not Detected (NotDetected); Phencyclidine (PCP) Not Detected (NotDetected); THC/Cannabinoid Screen Not Detected (NotDetected); Tricyclic Screen Not Detected (NotDetected)
[2021-02-22] MEDS: Gentamicin Ophth Soln 0.3% 5 ml Bottle EA EYE SCH (22:02)
[2021-02-22] MEDS: Flecainide 50 MG TAB PO SCH (22:02)
[2021-02-22] MEDS: Albumin 25% 25 GM/100 ML BOT IVPB SCH (22:02)
[2021-02-22] MEDS: Atorvastatin Calcium 20 MG TAB PO SCH (22:02)
[2021-02-22] MEDS ORDERED: Heparin 10,000 UNITS/ 10 ML VIAL SLOW IVP SCH (23:30)
[2021-02-22] MEDS ORDERED: Heparin 25,000 units/D5W 500 ML IV SCH (23:30)
[2021-02-23] MEDS: Sodium Chloride 0.45% 1,000 ML IV SCH ×2 (00:06→19:24)
[2021-02-23 00:24] LABS: PTT Greater than 250.0 sec (22.9-36.1)
[2021-02-23] MEDS: Albumin 25% 25 GM/100 ML BOT IVPB SCH (04:35)
[2021-02-23 04:48] LABS: #Lymphocytes 0.7 thou/uL (1.20-3.40); #Monocytes 0.1 thou/uL (0.11-0.59); #Neutrophils 5.5 thou/uL (1.40-6.50); %Basophils 0.1 % (0.0-1.0); %Eosinophils 0.1 % (0.0-10.0); %Lymphocytes 10.6 % (21.0-51.0); %Monocytes 1.8 % (0.0-10.0); %Neutrophils 87.4 % (42.0-75.0); Hemoglobin 8.6 g/dL (12.0-16.0); Mean Corpuscular HGB CONC 30.4 g/dL (32.0-36.0); Mean Corpuscular Hemoglobin 25.7 pg (27.0-31.0); Mean Corpuscular Volume 84.4 fL (78.0-98.0); Mean Platelet Volume 10.1 fL (7.4-10.4); Platelet Count 221 thou/uL (130-400); RBC Distribution Width 18.5 % (11.5-14.5); Red Blood Cell (RBC) Count 3.34 mill/uL (4.20-5.40); White Blood Cell (WBC) Count 6.3 thou/uL (4.8-10.8)
[2021-02-23 04:55] LABS: Hemoglobin A1c 6.9 % (4.0-6.0)
[2021-02-23 05:11] LABS: Anion Gap 19 mmol/L (10-20); BUN (Urea Nitrogen) 76 mg/dL (9.8-20.1); Calc. Creatinine Clearance 37 mL/min (70-130); Calcium 8.2 mg/dL (7.8-10.44); Carbon Dioxide 21 mmol/L (23-31); Cardiac Risk 2.2 (Less than 4.5); Chloride 104 mmol/L (98-107); Cholesterol 138 mg/dl (< 200 Desired); Glucose 235 mg/dL (80-115); HDL Cholesterol 62 mg/dL (>60 Neg Risk); LDL Cholesterol, Calculated 66 mg/dL; Potassium 5.1 mmol/L (3.5-5.1); Sodium 139 mmol/L (136-145); Triglycerides 48 mg/dL (Less than 150); Uric Acid 5.7 mg/dL (2.6-6.0)
[2021-02-23] MEDS: Insulin Regular 300 UNITS/3 ML VIAL SC PRN (06:40)
[2021-02-23] MEDS: Levothyroxine Sodium 112 MCG TAB PO SCH (06:40)
[2021-02-23] MEDS: Budesonide 0.5 MG/2 ML NEB NEB SCH ×2 (07:37→18:59)
[2021-02-23] MEDS ORDERED: PRE FILLED SC SCH (09:00)
[2021-02-23] MEDS ORDERED: VICTOZA 18 MG/3 ML SC SCH (09:00)
[2021-02-23] MEDS: Alogliptin 25 MG TAB PO SCH (09:46)
[2021-02-23] MEDS: Clopidogrel Bisulfate 75 MG TAB PO SCH (09:47)
[2021-02-23] MEDS: Gentamicin Ophth Soln 0.3% 5 ml Bottle EA EYE SCH ×3 (09:48→21:26)
[2021-02-23] MEDS: Docusate 100 MG CAP PO SCH ×2 (09:51→21:25)
[2021-02-23] MEDS: Flecainide 50 MG TAB PO SCH ×2 (09:51→21:25)
[2021-02-23] MEDS ORDERED: Acetaminophen 325 MG TAB PO PRN (14:46)
[2021-02-23] MEDS ORDERED: Albuterol Sulfate 2.5 mg/3 ml Neb NEB PRN (14:55)
[2021-02-23 15:59] LABS: Bacteria/HPF None Seen HPF (None Seen); Bilirubin Negative (Negative); Blood, Urine Negative (Negative); Clarity Clear (Clear); Glucose, Urine (Dipstick) Normal (Negative); Ketone, Urine Negative (Negative); Leukocyte Negative Leu/uL (Negative); Nitrite Negative (Negative); Protein, Urine (Dipstick) 30 mg/dL (Neg-Trace); RBC/HPF 0-3 HPF (0-3); Specific Gravity, Urine 1.017 (1.002-1.036); Squamous Epithelial 0-3 HPF (0-3); Urobilinogen Normal mg/dL (Less than 2); WBC/HPF 0-3 HPF (0-3)
[2021-02-23 16:01] LABS: Urine Culture Reflex No No
[2021-02-23 16:15] LABS: Creatinine, Urine 78.14 mg/dL (47-110)
[2021-02-23 16:47] LABS: PTT Greater than 250.0 sec (22.9-36.1)
[2021-02-23 18:42] LABS: PTT 148.4 sec (22.9-36.1)
[2021-02-23] MEDS: Atorvastatin Calcium 20 MG TAB PO SCH (21:25)
[2021-02-24 04:24] LABS: SARS-CoV-2 PCR by NAA Not Detected (NotDetected)
[2021-02-24 05:31] LABS: Anion Gap 15 mmol/L (10-20); BUN (Urea Nitrogen) 92 mg/dL (9.8-20.1); Calc. Creatinine Clearance 40 mL/min (70-130); Calcium 7.8 mg/dL (7.8-10.44); Carbon Dioxide 23 mmol/L (23-31); Chloride 106 mmol/L (98-107); Glucose 122 mg/dL (80-115); Potassium 4.6 mmol/L (3.5-5.1); Sodium 139 mmol/L (136-145)
[2021-02-24] MEDS: Levothyroxine Sodium 112 MCG TAB PO SCH (06:46)
[2021-02-24 07:01] LABS: #Lymphocytes 1.4 thou/uL (1.20-3.40); #Monocytes 0.8 thou/uL (0.11-0.59); #Neutrophils 10.8 thou/uL (1.40-6.50); %Basophils 0.3 % (0.0-1.0); %Eosinophils 0.1 % (0.0-10.0); %Lymphocytes 10.8 % (21.0-51.0); %Monocytes 6.3 % (0.0-10.0); %Neutrophils 82.4 % (42.0-75.0); Anisocytosis SLIGHT = 6-15 cells (100X) (0-5/hpf); Elliptocytes SLIGHT = 2-5 cells (100X) (0-1/hpf); Hemoglobin 7.9 g/dL (12.0-16.0); Hypochromia SLIGHT = 6-15 cells (100X) (0-5/hpf); MDiff Complete? YES; Mean Corpuscular Hemoglobin 25.4 pg (27.0-31.0); Mean Corpuscular Volume 84.6 fL (78.0-98.0); Mean Platelet Volume 10.5 fL (7.4-10.4); Platelet Count 236 thou/uL (130-400); RBC Distribution Width 18.2 % (11.5-14.5); Red Blood Cell (RBC) Count 3.09 mill/uL (4.20-5.40); White Blood Cell (WBC) Count 13.1 thou/uL (4.8-10.8)
[2021-02-24] MEDS: Budesonide 0.5 MG/2 ML NEB NEB SCH ×2 (08:31→18:50)
[2021-02-24] MEDS: Gentamicin Ophth Soln 0.3% 5 ml Bottle EA EYE SCH ×3 (09:09→22:04)
[2021-02-24] MEDS: Alogliptin 25 MG TAB PO SCH (09:10)
[2021-02-24] MEDS: Aspirin Chewable 81 MG TAB PO SCH (09:10)
[2021-02-24] MEDS: Citalopram 20 MG TAB PO SCH (09:11)
[2021-02-24] MEDS: Clopidogrel Bisulfate 75 MG TAB PO SCH (09:12)
[2021-02-24] MEDS: Docusate 100 MG CAP PO SCH ×2 (09:12→22:03)
[2021-02-24] MEDS: Flecainide 50 MG TAB PO SCH ×2 (09:13→22:04)
[2021-02-24] MEDS: Buprenorphine 8mg/Naloxone 2mg per 1 FILM SL SCH (09:13)
[2021-02-24] MEDS ORDERED: Furosemide 100 MG/10 ML VIAL SLOW IVP SCH (13:00)
[2021-02-24] MEDS: Furosemide 40 MG/4 ML VIAL SLOW IVP SCH (13:33)
[2021-02-24] MEDS: Sodium Chloride 0.45% 1,000 ML IV SCH (13:33)
[2021-02-24] MEDS: Acetaminophen/Codeine 30-300mg Tablet PO PRN ×2 (15:07→22:08)
[2021-02-24] MEDS: Atorvastatin Calcium 20 MG TAB PO SCH (22:03)
[2021-02-25 04:36] LABS: #Basophils 0.1 thou/uL (0.0-0.2); #Eosinphils 0.2 thou/uL (0.0-0.7); #Lymphocytes 1.3 thou/uL (1.20-3.40); #Monocytes 0.7 thou/uL (0.11-0.59); %Basophils 0.6 % (0.0-1.0); %Eosinophils 1.6 % (0.0-10.0); %Lymphocytes 12.8 % (21.0-51.0); %Monocytes 7.2 % (0.0-10.0); %Neutrophils 77.8 % (42.0-75.0); Hemoglobin 7.7 g/dL (12.0-16.0); Mean Corpuscular HGB CONC 29.7 g/dL (32.0-36.0); Mean Corpuscular Hemoglobin 24.9 pg (27.0-31.0); Mean Corpuscular Volume 83.9 fL (78.0-98.0); Mean Platelet Volume 10.1 fL (7.4-10.4); Platelet Count 218 thou/uL (130-400); RBC Distribution Width 18.1 % (11.5-14.5); Red Blood Cell (RBC) Count 3.09 mill/uL (4.20-5.40); White Blood Cell (WBC) Count 10.3 thou/uL (4.8-10.8)
[2021-02-25 04:55] LABS: Anion Gap 17 mmol/L (10-20); BUN (Urea Nitrogen) 85 mg/dL (9.8-20.1); Calc. Creatinine Clearance 41 mL/min (70-130); Calcium 8.1 mg/dL (7.8-10.44); Carbon Dioxide 23 mmol/L (23-31); Chloride 106 mmol/L (98-107); Glucose 83 mg/dL (80-115); Potassium 4.6 mmol/L (3.5-5.1); Sodium 141 mmol/L (136-145)
[2021-02-25] MEDS: Levothyroxine Sodium 112 MCG TAB PO SCH (06:36)
[2021-02-25] MEDS: Furosemide 40 MG/4 ML VIAL SLOW IVP SCH ×2 (06:36→15:08)
[2021-02-25] MEDS: Budesonide 0.5 MG/2 ML NEB NEB SCH ×2 (06:50→18:58)
[2021-02-25] MEDS: Clopidogrel Bisulfate 75 MG TAB PO SCH (08:01)
[2021-02-25] MEDS: Alogliptin 25 MG TAB PO SCH (08:01)
[2021-02-25] MEDS: Docusate 100 MG CAP PO SCH ×3 (08:01→20:58)
[2021-02-25] MEDS: Flecainide 50 MG TAB PO SCH ×2 (08:01→20:59)
[2021-02-25] MEDS: Aspirin Chewable 81 MG TAB PO SCH (08:01)
[2021-02-25] MEDS: Gentamicin Ophth Soln 0.3% 5 ml Bottle EA EYE SCH ×3 (08:01→20:59)
[2021-02-25] MEDS: Citalopram 20 MG TAB PO SCH (08:01)
[2021-02-25] MEDS: Buprenorphine 8mg/Naloxone 2mg per 1 FILM SL SCH (09:25)
[2021-02-25] MEDS: Atorvastatin Calcium 20 MG TAB PO SCH (20:58)
[2021-02-25] MEDS: Acetaminophen/Codeine 30-300mg Tablet PO PRN (20:58)
[2021-02-26 04:59] LABS: #Eosinphils 0.4 thou/uL (0.0-0.7); #Lymphocytes 1.3 thou/uL (1.20-3.40); #Monocytes 0.7 thou/uL (0.11-0.59); %Basophils 0.5 % (0.0-1.0); %Eosinophils 4.4 % (0.0-10.0); %Lymphocytes 15.3 % (21.0-51.0); %Neutrophils 71.8 % (42.0-75.0); Hemoglobin 8.6 g/dL (12.0-16.0); Mean Corpuscular HGB CONC 31.4 g/dL (32.0-36.0); Mean Corpuscular Hemoglobin 26.5 pg (27.0-31.0); Mean Corpuscular Volume 84.4 fL (78.0-98.0); Mean Platelet Volume 10.2 fL (7.4-10.4); Platelet Count 225 thou/uL (130-400); RBC Distribution Width 18.5 % (11.5-14.5); Red Blood Cell (RBC) Count 3.24 mill/uL (4.20-5.40); White Blood Cell (WBC) Count 8.4 thou/uL (4.8-10.8)
[2021-02-26 05:18] LABS: Anion Gap 15 mmol/L (10-20); BUN (Urea Nitrogen) 83 mg/dL (9.8-20.1); Calc. Creatinine Clearance 42 mL/min (70-130); Calcium 8.7 mg/dL (7.8-10.44); Carbon Dioxide 25 mmol/L (23-31); Chloride 106 mmol/L (98-107); Glucose 131 mg/dL (80-115); Potassium 4.2 mmol/L (3.5-5.1); Sodium 142 mmol/L (136-145)
[2021-02-26] MEDS: Levothyroxine Sodium 112 MCG TAB PO SCH (05:31)
[2021-02-26] MEDS: Furosemide 40 MG/4 ML VIAL SLOW IVP SCH ×2 (05:31→16:47)
[2021-02-26] MEDS: Budesonide 0.5 MG/2 ML NEB NEB SCH ×2 (07:05→18:27)
[2021-02-26] MEDS: Aspirin Chewable 81 MG TAB PO SCH (08:47)
[2021-02-26] MEDS: Gentamicin Ophth Soln 0.3% 5 ml Bottle EA EYE SCH ×3 (08:48→21:56)
[2021-02-26] MEDS: Alogliptin 25 MG TAB PO SCH (08:48)
[2021-02-26] MEDS: Flecainide 50 MG TAB PO SCH ×2 (08:48→21:56)
[2021-02-26] MEDS: Clopidogrel Bisulfate 75 MG TAB PO SCH (08:48)
[2021-02-26] MEDS: Docusate 100 MG CAP PO SCH ×2 (08:48→21:56)
[2021-02-26] MEDS: Citalopram 20 MG TAB PO SCH (08:48)
[2021-02-26] MEDS: Buprenorphine 8mg/Naloxone 2mg per 1 FILM SL SCH (08:55)
[2021-02-26] MEDS: Acetaminophen/Codeine 30-300mg Tablet PO PRN ×2 (10:22→21:57)
[2021-02-26] MEDS: Atorvastatin Calcium 20 MG TAB PO SCH (21:56)
[2021-02-27 04:06] VITALS: BMI 21.7
[2021-02-27 05:11] LABS: #Basophils 0.1 thou/uL (0.0-0.2); #Eosinphils 0.5 thou/uL (0.0-0.7); #Lymphocytes 1.2 thou/uL (1.20-3.40); #Monocytes 0.7 thou/uL (0.11-0.59); #Neutrophils 5.9 thou/uL (1.40-6.50); %Basophils 0.6 % (0.0-1.0); %Eosinophils 5.9 % (0.0-10.0); %Lymphocytes 14.8 % (21.0-51.0); %Monocytes 8.4 % (0.0-10.0); %Neutrophils 70.4 % (42.0-75.0); Mean Corpuscular HGB CONC 30.7 g/dL (32.0-36.0); Mean Corpuscular Hemoglobin 26.2 pg (27.0-31.0); Mean Corpuscular Volume 85.4 fL (78.0-98.0); Platelet Count 227 thou/uL (130-400); RBC Distribution Width 18.3 % (11.5-14.5); Red Blood Cell (RBC) Count 3.42 mill/uL (4.20-5.40); White Blood Cell (WBC) Count 8.4 thou/uL (4.8-10.8)
[2021-02-27 05:27] LABS: Anion Gap 14 mmol/L (10-20); BUN (Urea Nitrogen) 78 mg/dL (9.8-20.1); Calc. Creatinine Clearance 43 mL/min (70-130); Carbon Dioxide 31 mmol/L (23-31); Chloride 106 mmol/L (98-107); Glucose 144 mg/dL (80-115); Potassium 4.5 mmol/L (3.5-5.1); Sodium 146 mmol/L (136-145)
[2021-02-27] MEDS: Levothyroxine Sodium 112 MCG TAB PO SCH (06:19)
[2021-02-27] MEDS: Budesonide 0.5 MG/2 ML NEB NEB SCH ×2 (07:28→18:34)
[2021-02-27] MEDS: Clopidogrel Bisulfate 75 MG TAB PO SCH (08:18)
[2021-02-27] MEDS: Flecainide 50 MG TAB PO SCH ×2 (08:18→20:06)
[2021-02-27] MEDS: Aspirin Chewable 81 MG TAB PO SCH (08:18)
[2021-02-27] MEDS: Citalopram 20 MG TAB PO SCH (08:18)
[2021-02-27] MEDS: Furosemide 40 MG TAB PO SCH ×2 (08:18→14:45)
[2021-02-27] MEDS: Docusate 100 MG CAP PO SCH ×2 (08:18→20:05)
[2021-02-27] MEDS: Alogliptin 25 MG TAB PO SCH (08:18)
[2021-02-27] MEDS: Buprenorphine 8mg/Naloxone 2mg per 1 FILM SL SCH (09:41)
[2021-02-27] MEDS: Gentamicin Ophth Soln 0.3% 5 ml Bottle EA EYE SCH ×3 (09:43→20:06)
[2021-02-27] MEDS: Insulin Regular 300 UNITS/3 ML VIAL SC PRN (11:29)
[2021-02-27] MEDS: Atorvastatin Calcium 20 MG TAB PO SCH (20:06)
[2021-02-28] MEDS: Levothyroxine Sodium 112 MCG TAB PO SCH (05:35)
[2021-02-28 06:43] LABS: Anion Gap 12 mmol/L (10-20); BUN (Urea Nitrogen) 78 mg/dL (9.8-20.1); Calc. Creatinine Clearance 40 mL/min (70-130); Calcium 8.9 mg/dL (7.8-10.44); Carbon Dioxide 34 mmol/L (23-31); Chloride 105 mmol/L (98-107); Glucose 128 mg/dL (80-115); Potassium 4.8 mmol/L (3.5-5.1); Sodium 146 mmol/L (136-145)
[2021-02-28] MEDS: Budesonide 0.5 MG/2 ML NEB NEB SCH (07:41)
[2021-02-28] MEDS: Gentamicin Ophth Soln 0.3% 5 ml Bottle EA EYE SCH ×2 (09:34→14:49)
[2021-02-28] MEDS: Docusate 100 MG CAP PO SCH (09:34)
[2021-02-28] MEDS: Clopidogrel Bisulfate 75 MG TAB PO SCH (09:34)
[2021-02-28] MEDS: Citalopram 20 MG TAB PO SCH (09:34)
[2021-02-28] MEDS: Flecainide 50 MG TAB PO SCH (09:34)
[2021-02-28] MEDS: Alogliptin 25 MG TAB PO SCH (09:34)
[2021-02-28] MEDS: Furosemide 40 MG TAB PO SCH ×2 (09:34→14:49)
[2021-02-28] MEDS: Aspirin Chewable 81 MG TAB PO SCH (09:34)
[2021-02-28] MEDS: Buprenorphine 8mg/Naloxone 2mg per 1 FILM SL SCH (10:08)
[2021-02-28 16:20] VITALS: BP 113/58; TEMP 97.5
== END 2021-02-28 17:00 | disposition home or self-care (01) | DRG 291 ==
LOC: ERS 11:43 → 2NO 15:41
PROVIDERS: ADMIT Specialist; ATTEND Specialist
DX: I13.0 Hypertensive heart and chronic kidney disease with heart failure and stage 1 through stage 4 chronic kidney disease, or unspecified chronic kidney disease (principal); I50.33 Acute on chronic diastolic (congestive) heart failure; F11.20 Opioid dependence, uncomplicated; K62.5 Hemorrhage of anus and rectum; N17.9 Acute kidney failure, unspecified; Z20.822 Contact with and (suspected) exposure to COVID-19; E78.5 Hyperlipidemia, unspecified; E11.22 Type 2 diabetes mellitus with diabetic chronic kidney disease; J44.9 Chronic obstructive pulmonary disease, unspecified; F32.9 Major depressive disorder, single episode, unspecified; F17.210 Nicotine dependence, cigarettes, uncomplicated; I49.5 Sick sinus syndrome; G47.00 Insomnia, unspecified; D63.1 Anemia in chronic kidney disease; E87.5 Hyperkalemia; E03.9 Hypothyroidism, unspecified; N18.9 Chronic kidney disease, unspecified; M10.9 Gout, unspecified; Z96.653 Presence of artificial knee joint, bilateral; I48.0 Paroxysmal atrial fibrillation; M85.80 Other specified disorders of bone density and structure, unspecified site; E66.9 Obesity, unspecified; I08.1 Rheumatic disorders of both mitral and tricuspid valves; K64.4 Residual hemorrhoidal skin tags; K64.8 Other hemorrhoids; Z95.0 Presence of cardiac pacemaker; Z88.5 Allergy status to narcotic agent; Z88.1 Allergy status to other antibiotic agents; Z91.041 Radiographic dye allergy status; Z90.49 Acquired absence of other specified parts of digestive tract; Z90.710 Acquired absence of both cervix and uterus; Z98.1 Arthrodesis status; Z79.84 Long term (current) use of oral hypoglycemic drugs; Z79.51 Long term (current) use of inhaled steroids; Z79.899 Other long term (current) drug therapy; Z68.21 Body mass index [BMI] 21.0-21.9, adult; Z91.81 History of falling
CPT/HCPCS: 36415; 36416; 70450; 70544; 70551; 71045; 71250; 72125; 74177; 78451; 80048; 80053; 80061; 80306; 81001; 82274; 82550; 82570; 83036; 83690; 83880; 84156; 84300; 84443; 84484; 84540; 84550; 85025; 85379; 85610; 85730; 87635; 93005; 93306; 94640; 95712; 95819; 95957; 96365; 96375; A9540; J1200; J1644; J1815; J1940; J2270; J2405; J2930; J7611; J7620; J7626; P9047; S0028; U0003; U0005

== ENCOUNTER 2021-03-21 12:49 | Inpatient (IN) | payer MEDICARE ==
[2021-03-21 13:42] LABS: #Basophils 0.1 thou/uL (0.0-0.2); #Eosinphils 0.4 thou/uL (0.0-0.7); #Lymphocytes 1.5 thou/uL (1.20-3.40); #Monocytes 0.8 thou/uL (0.11-0.59); #Neutrophils 8.1 thou/uL (1.40-6.50); %Basophils 0.6 % (0.0-1.0); %Eosinophils 3.9 % (0.0-10.0); %Lymphocytes 13.5 % (21.0-51.0); %Monocytes 7.1 % (0.0-10.0); %Neutrophils 74.9 % (42.0-75.0); Hemoglobin 8.3 g/dL (12.0-16.0); Mean Corpuscular HGB CONC 28.9 g/dL (32.0-36.0); Mean Corpuscular Hemoglobin 23.4 pg (27.0-31.0); Mean Corpuscular Volume 81.1 fL (78.0-98.0); Mean Platelet Volume 9.9 fL (7.4-10.4); Platelet Count 255 thou/uL (130-400); RBC Distribution Width 18.3 % (11.5-14.5); Red Blood Cell (RBC) Count 3.55 mill/uL (4.20-5.40); White Blood Cell (WBC) Count 10.8 thou/uL (4.8-10.8)
[2021-03-21 13:59] LABS: ALT (SGPT) 11 U/L (8-55); AST (SGOT) 19 U/L (5-34); Albumin 3.5 g/dL (3.4-4.8); Alkaline Phosphatase 126 U/L (40-110); Anion Gap 13 mmol/L (10-20); BUN (Urea Nitrogen) 64 mg/dL (9.8-20.1); Bilirubin, Total 0.6 mg/dL (0.2-1.2); CK (CPK) 46 U/L (29-168); Calc. Creatinine Clearance 0 mL/min (70-130); Calcium 8.7 mg/dL (7.8-10.44); Carbon Dioxide 32 mmol/L (23-31); Chloride 101 mmol/L (98-107); Globulin 2.5 g/dL (2.4-3.5); Glucose 64 mg/dL (80-115); Potassium 4.2 mmol/L (3.5-5.1); Sodium 142 mmol/L (136-145)
[2021-03-21 14:03] LABS: Hypochromia MODERATE=16-30 cells (100X) (0-5/hpf); MDiff Complete? YES; Ovalocytes SLIGHT = 2-5 cells (100X) (0-1/hpf); Platelet Morphology Comment Appears Adequate; Polychromasia SLIGHT = 2-3 cells (100X) (0-2/hpf); Target Cells SLIGHT = 2-5 cells (100X) (0-1/hpf); Tear Drops SLIGHT = 2-5 cells (100X) (0-1/hpf)
[2021-03-21 15:00] LABS: Bilirubin Negative (Negative); Blood, Urine Negative (Negative); Clarity Clear (Clear); Glucose, Urine (Dipstick) Normal (Negative); Ketone, Urine Negative (Negative); Leukocyte Negative Leu/uL (Negative); Nitrite Negative (Negative); Protein, Urine (Dipstick) Negative (Neg-Trace); Specific Gravity, Urine 1.008 (1.002-1.036); Urobilinogen Normal mg/dL (Less than 2); pH, Urine 5.5 (5.0-9.0)
[2021-03-21] MEDS ORDERED: Ondansetron ODT 4 MG TAB SL PRN (15:00)
[2021-03-21] MEDS ORDERED: Ondansetron PF 4 MG/2 ML Vial IVP PRN (15:00)
[2021-03-21 18:37] VITALS: BMI 38.8
[2021-03-21] MEDS: Dextrose 5 % And 0.9 % NaCl 1,000 ML IV SCH (22:21)
[2021-03-22 04:49] LABS: Hemoglobin A1c 7.1 % (4.0-6.0)
[2021-03-22 05:08] LABS: Iron 9 ug/dL (50-170); Iron Binding Capacity, Total 344 mcg/dL (265-497)
[2021-03-22 05:51] LABS: #Basophils 0.1 thou/uL (0.0-0.2); #Eosinphils 0.3 thou/uL (0.0-0.7); #Lymphocytes 1.4 thou/uL (1.20-3.40); #Monocytes 0.8 thou/uL (0.11-0.59); #Neutrophils 6.7 thou/uL (1.40-6.50); %Basophils 0.7 % (0.0-1.0); %Lymphocytes 15.3 % (21.0-51.0); %Monocytes 8.8 % (0.0-10.0); %Neutrophils 72.3 % (42.0-75.0); Hemoglobin 7.6 g/dL (12.0-16.0); Mean Corpuscular HGB CONC 28.7 g/dL (32.0-36.0); Mean Corpuscular Hemoglobin 23.6 pg (27.0-31.0); Mean Corpuscular Volume 82.2 fL (78.0-98.0); Mean Platelet Volume 9.6 fL (7.4-10.4); Platelet Count 220 thou/uL (130-400); Red Blood Cell (RBC) Count 3.23 mill/uL (4.20-5.40); White Blood Cell (WBC) Count 9.2 thou/uL (4.8-10.8)
[2021-03-22] MEDS ORDERED: Insulin Regular 300 UNITS/3 ML VIAL SC PRN (08:00)
[2021-03-22] MEDS ORDERED: Dextrose 50% Abboject 50 ML SYRINGE IVP PRN (08:00)
[2021-03-22] MEDS ORDERED: Dextrose 5% in Water 1,000 ML IV PRN (08:00)
[2021-03-22] MEDS: Dextrose 5 %-0.45 % NaCl 1,000 ML IV SCH ×2 (08:24→08:25)
[2021-03-22] MEDS: Dextrose 5 % And 0.9 % NaCl 1,000 ML IV SCH (08:25)
[2021-03-22] MEDS: Sodium Chloride 0.45% 1,000 ML IV SCH ×2 (08:32→18:05)
[2021-03-22] MEDS: Acetaminophen 325 MG TAB PO PRN (08:32)
[2021-03-22] MEDS: Citalopram 20 MG TAB PO SCH (08:34)
[2021-03-22] MEDS: Aspirin Chewable 81 MG TAB PO SCH (08:34)
[2021-03-22] MEDS: Flecainide 50 MG TAB PO SCH ×2 (08:34→20:58)
[2021-03-22 08:35] LABS: Anion Gap 14 mmol/L (10-20); BUN (Urea Nitrogen) 57 mg/dL (9.8-20.1); Calc. Creatinine Clearance 42 mL/min (70-130); Calcium 8.3 mg/dL (7.8-10.44); Carbon Dioxide 28 mmol/L (23-31); Chloride 103 mmol/L (98-107); Glucose 113 mg/dL (80-115); Potassium 4.2 mmol/L (3.5-5.1); Sodium 141 mmol/L (136-145)
[2021-03-22] MEDS ORDERED: Allopurinol 100 MG TAB PO SCH (09:00)
[2021-03-22] MEDS ORDERED: Furosemide 40 MG TAB PO SCH (09:00)
[2021-03-22 09:55] LABS: Anion Gap 14 mmol/L (10-20); BUN (Urea Nitrogen) 59 mg/dL (9.8-20.1); Calc. Creatinine Clearance 41 mL/min (70-130); Calcium 8.5 mg/dL (7.8-10.44); Carbon Dioxide 31 mmol/L (23-31); Chloride 102 mmol/L (98-107); Glucose 110 mg/dL (80-115); Potassium 3.9 mmol/L (3.5-5.1); Sodium 143 mmol/L (136-145)
[2021-03-22 10:03] LABS: #Basophils 0.1 thou/uL (0.0-0.2); #Eosinphils 0.3 thou/uL (0.0-0.7); #Lymphocytes 1.2 thou/uL (1.20-3.40); #Monocytes 0.9 thou/uL (0.11-0.59); #Neutrophils 6.6 thou/uL (1.40-6.50); %Basophils 0.7 % (0.0-1.0); %Eosinophils 3.2 % (0.0-10.0); %Lymphocytes 13.5 % (21.0-51.0); %Neutrophils 72.6 % (42.0-75.0); Hemoglobin 8.2 g/dL (12.0-16.0); Mean Corpuscular HGB CONC 28.8 g/dL (32.0-36.0); Mean Corpuscular Hemoglobin 23.7 pg (27.0-31.0); Mean Corpuscular Volume 82.3 fL (78.0-98.0); Mean Platelet Volume 9.6 fL (7.4-10.4); Platelet Count 232 thou/uL (130-400); RBC Distribution Width 18.3 % (11.5-14.5); Red Blood Cell (RBC) Count 3.46 mill/uL (4.20-5.40); White Blood Cell (WBC) Count 9.1 thou/uL (4.8-10.8)
[2021-03-22 10:58] LABS: Hypochromia SLIGHT = 6-15 cells (100X) (0-5/hpf); MDiff Complete? YES; Ovalocytes SLIGHT = 2-5 cells (100X) (0-1/hpf); Platelet Morphology Comment Appears Adequate; Polychromasia SLIGHT = 2-3 cells (100X) (0-2/hpf); Sickle Cells SLIGHT = 1-5 cells (100X) (None Seen)
[2021-03-22] MEDS: Alogliptin 25 MG TAB PO SCH (12:07)
[2021-03-22 15:32] LABS: SARS-CoV-2 PCR by NAA Not Detected (NotDetected)
[2021-03-22] MEDS: Ipratropium Bromide 2.5 ml Neb NEB SCH ×3 (16:42→23:47)
[2021-03-22] MEDS: Mometasone 200 MCG/Formoterol 5 MCG 120 PUFF INHALER INH SCH (18:16)
[2021-03-22] MEDS: Atorvastatin Calcium 20 MG TAB PO SCH (20:58)
[2021-03-23] MEDS: Sodium Chloride 0.45% 1,000 ML IV SCH ×2 (03:55→14:34)
[2021-03-23 04:58] LABS: Hemoglobin 7.9 g/dL (12.0-16.0); Mean Corpuscular HGB CONC 28.1 g/dL (32.0-36.0); Mean Corpuscular Hemoglobin 23.4 pg (27.0-31.0); Mean Corpuscular Volume 83.4 fL (78.0-98.0); Red Blood Cell (RBC) Count 3.38 mill/uL (4.20-5.40); White Blood Cell (WBC) Count 9.5 thou/uL (4.8-10.8)
[2021-03-23 04:59] LABS: #Basophils 0.1 thou/uL (0.0-0.2); #Eosinphils 0.3 thou/uL (0.0-0.7); #Lymphocytes 1.3 thou/uL (1.20-3.40); #Monocytes 0.8 thou/uL (0.11-0.59); %Basophils 0.7 % (0.0-1.0); %Eosinophils 3.1 % (0.0-10.0); %Monocytes 8.2 % (0.0-10.0); Mean Platelet Volume 10.3 fL (7.4-10.4); Platelet Count 212 thou/uL (130-400); RBC Distribution Width 18.3 % (11.5-14.5)
[2021-03-23] MEDS: Levothyroxine Sodium 112 MCG TAB PO SCH (05:31)
[2021-03-23] MEDS: Mometasone 200 MCG/Formoterol 5 MCG 120 PUFF INHALER INH SCH ×2 (08:04→20:05)
[2021-03-23] MEDS: Ipratropium Bromide 2.5 ml Neb NEB SCH ×4 (08:05→23:51)
[2021-03-23 09:12] LABS: #Basophils 0.1 thou/uL (0.0-0.2); #Eosinphils 0.4 thou/uL (0.0-0.7); #Monocytes 0.8 thou/uL (0.11-0.59); %Basophils 0.8 % (0.0-1.0); %Eosinophils 3.5 % (0.0-10.0); %Lymphocytes 9.8 % (21.0-51.0); %Monocytes 7.8 % (0.0-10.0); %Neutrophils 78.1 % (42.0-75.0); Hemoglobin 7.6 g/dL (12.0-16.0); Mean Corpuscular HGB CONC 28.2 g/dL (32.0-36.0); Mean Corpuscular Hemoglobin 23.5 pg (27.0-31.0); Mean Corpuscular Volume 83.3 fL (78.0-98.0); Mean Platelet Volume 9.8 fL (7.4-10.4); Platelet Count 214 thou/uL (130-400); RBC Distribution Width 18.1 % (11.5-14.5); Red Blood Cell (RBC) Count 3.24 mill/uL (4.20-5.40); White Blood Cell (WBC) Count 10.2 thou/uL (4.8-10.8)
[2021-03-23 09:26] LABS: Anion Gap 10 mmol/L (10-20); BUN (Urea Nitrogen) 60 mg/dL (9.8-20.1); Calc. Creatinine Clearance 49 mL/min (70-130); Calcium 8.5 mg/dL (7.8-10.44); Carbon Dioxide 33 mmol/L (23-31); Chloride 103 mmol/L (98-107); Glucose 150 mg/dL (80-115); Potassium 4.3 mmol/L (3.5-5.1); Sodium 142 mmol/L (136-145)
[2021-03-23 10:03] LABS: Hypochromia SLIGHT = 6-15 cells (100X) (0-5/hpf); MDiff Complete? YES; Ovalocytes MODERATE= 6-15 cells (100X) (0-1/hpf); Platelet Morphology Comment Appears Adequate; Polychromasia SLIGHT = 2-3 cells (100X) (0-2/hpf)
[2021-03-23] MEDS: Aspirin Chewable 81 MG TAB PO SCH (10:06)
[2021-03-23] MEDS: Alogliptin 25 MG TAB PO SCH (10:06)
[2021-03-23] MEDS: Flecainide 50 MG TAB PO SCH ×2 (10:07→21:23)
[2021-03-23] MEDS: Citalopram 20 MG TAB PO SCH (10:07)
[2021-03-23] MEDS: Acetaminophen 325 MG TAB PO PRN ×2 (10:08→21:23)
[2021-03-23] MEDS ORDERED: GoLYTELY 4,000 ml Bottle PO SCH (16:15)
[2021-03-23] MEDS: Atorvastatin Calcium 20 MG TAB PO SCH (21:25)
[2021-03-24] MEDS: Sodium Chloride 0.45% 1,000 ML IV SCH ×3 (00:13→14:54)
[2021-03-24 04:35] LABS: #Basophils 0.1 thou/uL (0.0-0.2); #Eosinphils 0.3 thou/uL (0.0-0.7); #Lymphocytes 1.5 thou/uL (1.20-3.40); #Monocytes 0.7 thou/uL (0.11-0.59); %Basophils 0.8 % (0.0-1.0); %Eosinophils 3.7 % (0.0-10.0); %Lymphocytes 17.8 % (21.0-51.0); %Monocytes 8.3 % (0.0-10.0); %Neutrophils 69.5 % (42.0-75.0); Mean Corpuscular HGB CONC 29.5 g/dL (32.0-36.0); Mean Corpuscular Hemoglobin 24.4 pg (27.0-31.0); Mean Corpuscular Volume 82.7 fL (78.0-98.0); Mean Platelet Volume 10.2 fL (7.4-10.4); Platelet Count 196 thou/uL (130-400); RBC Distribution Width 18.3 % (11.5-14.5); Red Blood Cell (RBC) Count 3.27 mill/uL (4.20-5.40); White Blood Cell (WBC) Count 8.7 thou/uL (4.8-10.8)
[2021-03-24 04:38] LABS: Anion Gap 12 mmol/L (10-20); BUN (Urea Nitrogen) 55 mg/dL (9.8-20.1); Calc. Creatinine Clearance 60 mL/min (70-130); Calcium 8.8 mg/dL (7.8-10.44); Carbon Dioxide 29 mmol/L (23-31); Chloride 103 mmol/L (98-107); Glucose 96 mg/dL (80-115); Potassium 4.2 mmol/L (3.5-5.1); Sodium 140 mmol/L (136-145)
[2021-03-24] MEDS: Levothyroxine Sodium 112 MCG TAB PO SCH (05:40)
[2021-03-24] MEDS: Mometasone 200 MCG/Formoterol 5 MCG 120 PUFF INHALER INH SCH ×2 (07:22→19:24)
[2021-03-24] MEDS: Ipratropium Bromide 2.5 ml Neb NEB SCH ×4 (07:23→23:36)
[2021-03-24] MEDS: Flecainide 50 MG TAB PO SCH ×2 (10:04→21:13)
[2021-03-24] MEDS: Citalopram 20 MG TAB PO SCH (10:05)
[2021-03-24] MEDS: Alogliptin 25 MG TAB PO SCH (10:05)
[2021-03-24] MEDS: Aspirin Chewable 81 MG TAB PO SCH (10:05)
[2021-03-24] MEDS ORDERED: GoLYTELY 4,000 ml Bottle PO SCH (15:00)
[2021-03-24] MEDS ORDERED: Sodium Chloride 0.9% 500 ML IV SCH (20:00)
[2021-03-24] MEDS: Atorvastatin Calcium 20 MG TAB PO SCH (21:14)
[2021-03-25] MEDS: Sodium Chloride 0.45% 1,000 ML IV SCH ×2 (01:52→17:55)
[2021-03-25 05:08] LABS: #Basophils 0.1 thou/uL (0.0-0.2); #Eosinphils 0.4 thou/uL (0.0-0.7); #Lymphocytes 1.3 thou/uL (1.20-3.40); #Monocytes 0.8 thou/uL (0.11-0.59); #Neutrophils 5.9 thou/uL (1.40-6.50); %Basophils 1.3 % (0.0-1.0); %Eosinophils 4.4 % (0.0-10.0); %Lymphocytes 15.3 % (21.0-51.0); %Monocytes 9.2 % (0.0-10.0); %Neutrophils 69.8 % (42.0-75.0); Hemoglobin 7.7 g/dL (12.0-16.0); Mean Corpuscular Hemoglobin 24.6 pg (27.0-31.0); Mean Platelet Volume 10.1 fL (7.4-10.4); Platelet Count 187 thou/uL (130-400); RBC Distribution Width 18.2 % (11.5-14.5); Red Blood Cell (RBC) Count 3.13 mill/uL (4.20-5.40); White Blood Cell (WBC) Count 8.5 thou/uL (4.8-10.8)
[2021-03-25] MEDS: Levothyroxine Sodium 112 MCG TAB PO SCH (05:22)
[2021-03-25 05:29] LABS: Anion Gap 11 mmol/L (10-20); BUN (Urea Nitrogen) 45 mg/dL (9.8-20.1); Calc. Creatinine Clearance 75 mL/min (70-130); Calcium 8.9 mg/dL (7.8-10.44); Carbon Dioxide 29 mmol/L (23-31); Chloride 104 mmol/L (98-107); Glucose 96 mg/dL (80-115); Potassium 4.3 mmol/L (3.5-5.1); Sodium 140 mmol/L (136-145)
[2021-03-25] MEDS: Ipratropium Bromide 2.5 ml Neb NEB SCH ×4 (08:12→23:49)
[2021-03-25] MEDS: Mometasone 200 MCG/Formoterol 5 MCG 120 PUFF INHALER INH SCH ×2 (08:12→19:23)
[2021-03-25] MEDS: Alogliptin 25 MG TAB PO SCH (08:36)
[2021-03-25] MEDS: Aspirin Chewable 81 MG TAB PO SCH (08:36)
[2021-03-25] MEDS: Flecainide 50 MG TAB PO SCH ×2 (08:36→20:57)
[2021-03-25] MEDS: Citalopram 20 MG TAB PO SCH (08:36)
[2021-03-25] MEDS: Atorvastatin Calcium 20 MG TAB PO SCH (20:57)
[2021-03-25] MEDS ORDERED: GoLYTELY 4,000 ml Bottle PO SCH (21:00)
[2021-03-26] MEDS: Sodium Chloride 0.45% 1,000 ML IV SCH ×3 (02:52→21:38)
[2021-03-26 04:46] LABS: #Eosinphils 0.3 thou/uL (0.0-0.7); #Lymphocytes 1.1 thou/uL (1.20-3.40); #Monocytes 0.7 thou/uL (0.11-0.59); #Neutrophils 7.1 thou/uL (1.40-6.50); %Basophils 0.4 % (0.0-1.0); %Eosinophils 3.3 % (0.0-10.0); %Lymphocytes 11.8 % (21.0-51.0); %Monocytes 7.6 % (0.0-10.0); Mean Corpuscular HGB CONC 28.5 g/dL (32.0-36.0); Mean Corpuscular Hemoglobin 23.4 pg (27.0-31.0); Mean Corpuscular Volume 82.1 fL (78.0-98.0); Mean Platelet Volume 10.6 fL (7.4-10.4); Platelet Count 189 thou/uL (130-400); RBC Distribution Width 18.9 % (11.5-14.5); Red Blood Cell (RBC) Count 3.84 mill/uL (4.20-5.40); White Blood Cell (WBC) Count 9.3 thou/uL (4.8-10.8)
[2021-03-26 05:06] LABS: Anion Gap 15 mmol/L (10-20); BUN (Urea Nitrogen) 39 mg/dL (9.8-20.1); Calc. Creatinine Clearance 70 mL/min (70-130); Carbon Dioxide 25 mmol/L (23-31); Chloride 101 mmol/L (98-107); Glucose 122 mg/dL (80-115); Potassium 4.4 mmol/L (3.5-5.1); Sodium 137 mmol/L (136-145)
[2021-03-26] MEDS: Levothyroxine Sodium 112 MCG TAB PO SCH (05:29)
[2021-03-26] MEDS: Ipratropium Bromide 2.5 ml Neb NEB SCH ×4 (07:34→23:44)
[2021-03-26] MEDS: Mometasone 200 MCG/Formoterol 5 MCG 120 PUFF INHALER INH SCH ×2 (07:35→18:55)
[2021-03-26] MEDS: Citalopram 20 MG TAB PO SCH (10:57)
[2021-03-26] MEDS: Alogliptin 25 MG TAB PO SCH (10:57)
[2021-03-26] MEDS: Flecainide 50 MG TAB PO SCH ×2 (10:57→21:34)
[2021-03-26] MEDS: Aspirin Chewable 81 MG TAB PO SCH (10:57)
[2021-03-26] MEDS ORDERED: GoLYTELY 4,000 ml Bottle PO SCH (16:00)
[2021-03-26] MEDS: Atorvastatin Calcium 20 MG TAB PO SCH (21:34)
[2021-03-27] MEDS: Levothyroxine Sodium 112 MCG TAB PO SCH (05:00)
[2021-03-27 05:06] LABS: #Eosinphils 0.3 thou/uL (0.0-0.7); #Monocytes 0.8 thou/uL (0.11-0.59); %Basophils 0.3 % (0.0-1.0); %Eosinophils 3.5 % (0.0-10.0); %Lymphocytes 12.3 % (21.0-51.0); %Monocytes 9.3 % (0.0-10.0); %Neutrophils 74.5 % (42.0-75.0); Hemoglobin 8.6 g/dL (12.0-16.0); Mean Corpuscular HGB CONC 28.4 g/dL (32.0-36.0); Mean Corpuscular Hemoglobin 23.1 pg (27.0-31.0); Mean Corpuscular Volume 81.3 fL (78.0-98.0); Mean Platelet Volume 10.7 fL (7.4-10.4); Platelet Count 182 thou/uL (130-400); RBC Distribution Width 18.6 % (11.5-14.5); White Blood Cell (WBC) Count 8.1 thou/uL (4.8-10.8)
[2021-03-27 05:20] LABS: Anion Gap 12 mmol/L (10-20); BUN (Urea Nitrogen) 30 mg/dL (9.8-20.1); Calc. Creatinine Clearance 88 mL/min (70-130); Calcium 8.6 mg/dL (7.8-10.44); Carbon Dioxide 27 mmol/L (23-31); Chloride 105 mmol/L (98-107); Glucose 76 mg/dL (80-115); Potassium 4.1 mmol/L (3.5-5.1); Sodium 140 mmol/L (136-145)
[2021-03-27] MEDS: Ipratropium Bromide 2.5 ml Neb NEB SCH ×2 (07:05→12:45)
[2021-03-27] MEDS: Mometasone 200 MCG/Formoterol 5 MCG 120 PUFF INHALER INH SCH (07:07)
[2021-03-27] MEDS: Flecainide 50 MG TAB PO SCH (08:12)
[2021-03-27] MEDS: Citalopram 20 MG TAB PO SCH (10:20)
[2021-03-27] MEDS: Aspirin Chewable 81 MG TAB PO SCH (10:20)
[2021-03-27] MEDS: Alogliptin 25 MG TAB PO SCH (10:20)
[2021-03-27] MEDS: Sodium Chloride 0.45% 1,000 ML IV SCH (10:20)
[2021-03-27 16:53] VITALS: BP 146/65; TEMP 98
== END 2021-03-27 17:34 | disposition home or self-care (01) | DRG 812 ==
LOC: ERS 12:49 → 2NO 15:21
PROVIDERS: ADMIT Specialist; ATTEND Specialist
DX: D50.9 Iron deficiency anemia, unspecified (principal); F11.20 Opioid dependence, uncomplicated; N17.9 Acute kidney failure, unspecified; E11.649 Type 2 diabetes mellitus with hypoglycemia without coma; Z20.822 Contact with and (suspected) exposure to COVID-19; E78.00 Pure hypercholesterolemia, unspecified; E03.9 Hypothyroidism, unspecified; I12.9 Hypertensive chronic kidney disease with stage 1 through stage 4 chronic kidney disease, or unspecified chronic kidney disease; J44.9 Chronic obstructive pulmonary disease, unspecified; M10.9 Gout, unspecified; Z96.653 Presence of artificial knee joint, bilateral; F17.210 Nicotine dependence, cigarettes, uncomplicated; I49.5 Sick sinus syndrome; I48.0 Paroxysmal atrial fibrillation; G47.00 Insomnia, unspecified; E11.22 Type 2 diabetes mellitus with diabetic chronic kidney disease; K21.9 Gastro-esophageal reflux disease without esophagitis; F41.9 Anxiety disorder, unspecified; F32.9 Major depressive disorder, single episode, unspecified; Z90.710 Acquired absence of both cervix and uterus; Z90.49 Acquired absence of other specified parts of digestive tract; Z98.1 Arthrodesis status; Z95.0 Presence of cardiac pacemaker; Z88.8 Allergy status to other drugs, medicaments and biological substances; Z88.1 Allergy status to other antibiotic agents; Z79.890 Hormone replacement therapy; Z79.51 Long term (current) use of inhaled steroids; Z79.84 Long term (current) use of oral hypoglycemic drugs; Z79.899 Other long term (current) drug therapy
CPT/HCPCS: 36415; 36416; 70450; 71045; 72125; 80048; 80053; 81003; 82550; 82607; 82728; 82746; 83036; 83540; 83550; 83880; 84443; 84484; 85025; 87635; 93005; 94640; J1815; J7620; U0003; U0005

== ENCOUNTER 2021-04-16 10:33 | Inpatient (IN) | payer MEDICARE ==
[~2021-04-16 10:33] MED LIST: Iopamidol-370 76% 500 ML 1 ML ONE
[2021-04-16 11:19] LABS: #Basophils 0.1 thou/uL (0.0-0.2); #Eosinphils 0.3 thou/uL (0.0-0.7); #Lymphocytes 0.9 thou/uL (1.20-3.40); #Monocytes 0.9 thou/uL (0.11-0.59); #Neutrophils 7.8 thou/uL (1.40-6.50); %Basophils 0.6 % (0.0-1.0); %Eosinophils 2.8 % (0.0-10.0); %Lymphocytes 9.4 % (21.0-51.0); %Monocytes 8.7 % (0.0-10.0); %Neutrophils 78.6 % (42.0-75.0); Hemoglobin 8.4 g/dL (12.0-16.0); Mean Corpuscular HGB CONC 30.6 g/dL (32.0-36.0); Mean Corpuscular Hemoglobin 23.8 pg (27.0-31.0); Mean Platelet Volume 10.6 fL (7.4-10.4); Platelet Count 239 thou/uL (130-400); RBC Distribution Width 19.3 % (11.5-14.5); Red Blood Cell (RBC) Count 3.52 mill/uL (4.20-5.40)
[2021-04-16 11:40] LABS: ALT (SGPT) 12 U/L (8-55); AST (SGOT) 24 U/L (5-34); Albumin 3.7 g/dL (3.4-4.8); Alkaline Phosphatase 160 U/L (40-110); Anion Gap 15 mmol/L (10-20); BUN (Urea Nitrogen) 52 mg/dL (9.8-20.1); Calc. Creatinine Clearance 0 mL/min (70-130); Calcium 8.9 mg/dL (7.8-10.44); Carbon Dioxide 31 mmol/L (23-31); Chloride 97 mmol/L (98-107); Globulin 2.6 g/dL (2.4-3.5); Glucose 161 mg/dL (80-115); Potassium 4.4 mmol/L (3.5-5.1); Protein, Total 6.3 g/dL (5.8-8.1); Sodium 139 mmol/L (136-145)
[2021-04-16] MEDS ORDERED: methylPREDNISolone Sod Succ/PF 125 MG/2 ML VIAL ONE (12:46)
[2021-04-16] MEDS ORDERED: Famotidine/PF 20 mg/2ml Vial ONE (12:46)
[2021-04-16] MEDS ORDERED: diphenhydrAMINE 50 MG/ML VIAL ONE (12:46)
[2021-04-16] MEDS ORDERED: Aspirin 325 MG TAB ONE (14:36)
[2021-04-16 15:04] LABS: Troponin I 0.022 ng/mL (< 0.028)
[2021-04-16] MEDS ORDERED: Acetaminophen 325 MG TAB PO PRN ×2 (17:30→21:01)
[2021-04-16] MEDS ORDERED: Sodium Chloride 0.9% 1,000 ML IV SCH (17:30)
[2021-04-16] MEDS ORDERED: Ondansetron PF 4 MG/2 ML Vial IVP PRN ×2 (17:30→21:01)
[2021-04-16] MEDS ORDERED: Ondansetron ODT 4 MG TAB SL PRN ×2 (17:30→21:01)
[2021-04-16] MEDS ORDERED: Dextrose 50% Abboject 50 ML SYRINGE IVP PRN (17:45)
[2021-04-16] MEDS ORDERED: Dextrose 5% in Water 1,000 ML IV PRN (17:45)
[2021-04-16] MEDS: HumaLOG 300 UNITS/3 ML VIAL SC PRN (17:50)
[2021-04-16] MEDS: Acetaminophen/Codeine 30-300mg Tablet PO PRN ×2 (17:51→23:19)
[2021-04-16] MEDS: Flecainide 50 MG TAB PO SCH (23:05)
[2021-04-17] MEDS: Ipratropium Bromide 2.5 ml Neb NEB SCH ×4 (01:16→18:28)
[2021-04-17] MEDS: Benzonatate 100 MG CAP PO PRN ×2 (04:08→21:16)
[2021-04-17] MEDS: Acetaminophen/Codeine 30-300mg Tablet PO PRN ×2 (04:08→08:19)
[2021-04-17] MEDS: HumaLOG 300 UNITS/3 ML VIAL SC PRN ×3 (04:16→17:16)
[2021-04-17 05:39] LABS: Anion Gap 14 mmol/L (10-20); BUN (Urea Nitrogen) 53 mg/dL (9.8-20.1); Calc. Creatinine Clearance 63 mL/min (70-130); Calcium 8.4 mg/dL (7.8-10.44); Carbon Dioxide 30 mmol/L (23-31); Chloride 100 mmol/L (98-107); Glucose 261 mg/dL (80-115); Potassium 4.4 mmol/L (3.5-5.1); Sodium 140 mmol/L (136-145)
[2021-04-17] MEDS: Levothyroxine Sodium 112 MCG TAB PO SCH (05:52)
[2021-04-17 05:58] LABS: #Lymphocytes 0.6 thou/uL (1.20-3.40); #Monocytes 0.5 thou/uL (0.11-0.59); #Neutrophils 7.8 thou/uL (1.40-6.50); %Basophils 0.1 % (0.0-1.0); %Eosinophils 0.1 % (0.0-10.0); %Lymphocytes 7.1 % (21.0-51.0); %Monocytes 5.3 % (0.0-10.0); %Neutrophils 87.5 % (42.0-75.0); Hemoglobin 7.8 g/dL (12.0-16.0); Mean Corpuscular HGB CONC 29.4 g/dL (32.0-36.0); Mean Corpuscular Volume 78.2 fL (78.0-98.0); Mean Platelet Volume 10.8 fL (7.4-10.4); Platelet Count 215 thou/uL (130-400); RBC Distribution Width 19.3 % (11.5-14.5); Red Blood Cell (RBC) Count 3.38 mill/uL (4.20-5.40); White Blood Cell (WBC) Count 8.9 thou/uL (4.8-10.8)
[2021-04-17 05:59] LABS: Anisocytosis MODERATE=16-30 cells (100X) (0-5/hpf); MDiff Complete? YES
[2021-04-17] MEDS ORDERED: Ipratropium Bromide 2.5 ml Neb ONE (06:40)
[2021-04-17] MEDS: Mometasone 200 MCG/Formoterol 5 MCG 120 PUFF INHALER INH SCH ×2 (07:01→18:31)
[2021-04-17] MEDS ORDERED: Sodium Chloride 0.9% 500 ML IV SCH (08:00)
[2021-04-17] MEDS: Enoxaparin Sodium 40 MG/0.4 ML SYRINGE SC SCH (08:19)
[2021-04-17] MEDS: Alogliptin 6.25 MG TAB PO SCH (08:20)
[2021-04-17] MEDS: Flecainide 50 MG TAB PO SCH ×2 (08:20→21:17)
[2021-04-17] MEDS: Aspirin Chewable 81 MG TAB PO SCH (08:20)
[2021-04-17] MEDS: Sodium Chloride 0.45% 1,000 ML IV SCH ×2 (11:20→21:17)
[2021-04-17] MEDS ORDERED: Furosemide 20 MG/2 ML VIAL SLOW IVP SCH (12:00)
[2021-04-17] MEDS: Acetaminophen 325 MG TAB PO SCH ×3 (15:14→21:16)
[2021-04-18] MEDS: Ipratropium Bromide 2.5 ml Neb NEB SCH ×5 (00:16→22:49)
[2021-04-18 04:50] LABS: #Lymphocytes 1.2 thou/uL (1.20-3.40); #Monocytes 0.8 thou/uL (0.11-0.59); #Neutrophils 13.6 thou/uL (1.40-6.50); %Basophils 0.1 % (0.0-1.0); %Eosinophils 0.1 % (0.0-10.0); %Lymphocytes 7.6 % (21.0-51.0); %Neutrophils 87.2 % (42.0-75.0); Hemoglobin 8.1 g/dL (12.0-16.0); Mean Corpuscular HGB CONC 29.6 g/dL (32.0-36.0); Mean Corpuscular Hemoglobin 23.4 pg (27.0-31.0); Platelet Count 223 thou/uL (130-400); RBC Distribution Width 19.2 % (11.5-14.5); Red Blood Cell (RBC) Count 3.45 mill/uL (4.20-5.40); White Blood Cell (WBC) Count 15.6 thou/uL (4.8-10.8)
[2021-04-18 05:14] LABS: Anion Gap 14 mmol/L (10-20); BUN (Urea Nitrogen) 66 mg/dL (9.8-20.1); Calc. Creatinine Clearance 54 mL/min (70-130); Calcium 8.5 mg/dL (7.8-10.44); Carbon Dioxide 28 mmol/L (23-31); Cardiac Risk 2.3 (Less than 4.5); Chloride 101 mmol/L (98-107); Cholesterol 114 mg/dl (< 200 Desired); Glucose 162 mg/dL (80-115); HDL Cholesterol 50 mg/dL (>60 Neg Risk); LDL Cholesterol, Calculated 51 mg/dL; Potassium 4.3 mmol/L (3.5-5.1); Sodium 139 mmol/L (136-145); Triglycerides 66 mg/dL (Less than 150)
[2021-04-18] MEDS: Benzonatate 100 MG CAP PO PRN (05:19)
[2021-04-18] MEDS: Acetaminophen 325 MG TAB PO SCH ×5 (05:19→21:55)
[2021-04-18] MEDS: Levothyroxine Sodium 112 MCG TAB PO SCH (05:19)
[2021-04-18] MEDS: HumaLOG 300 UNITS/3 ML VIAL SC PRN (06:26)
[2021-04-18] MEDS: Mometasone 200 MCG/Formoterol 5 MCG 120 PUFF INHALER INH SCH ×2 (07:10→18:59)
[2021-04-18] MEDS: Flecainide 50 MG TAB PO SCH ×2 (08:01→21:54)
[2021-04-18] MEDS: Enoxaparin Sodium 40 MG/0.4 ML SYRINGE SC SCH (08:01)
[2021-04-18] MEDS: Sodium Chloride 0.45% 1,000 ML IV SCH ×2 (08:01→17:30)
[2021-04-18] MEDS: guaiFENesin ER 600 MG TAB PO SCH ×2 (08:01→21:54)
[2021-04-18] MEDS: Aspirin Chewable 81 MG TAB PO SCH (08:01)
[2021-04-18] MEDS: Alogliptin 6.25 MG TAB PO SCH (08:01)
[2021-04-18] MEDS: Acetaminophen/Codeine 30-300mg Tablet PO PRN (12:33)
[2021-04-18] MEDS: Ampicillin/Sulbactam 1.5 GM in Sodium Chloride 0.9% 100 ML IVPB SCH ×3 (12:33→23:16)
[2021-04-18] MEDS: MEROPENEM 1 GM/50 ML 1 GM in Premix Bag 1 BAG IVPB SCH ×2 (14:55→22:15)
[2021-04-19] MEDS: Sodium Chloride 0.45% 1,000 ML IV SCH ×3 (01:01→21:29)
[2021-04-19] MEDS: Acetaminophen 325 MG TAB PO SCH ×5 (05:51→21:25)
[2021-04-19] MEDS: MEROPENEM 1 GM/50 ML 1 GM in Premix Bag 1 BAG IVPB SCH ×3 (05:51→21:25)
[2021-04-19] MEDS: Levothyroxine Sodium 112 MCG TAB PO SCH (05:51)
[2021-04-19 05:53] LABS: #Basophils 0.1 thou/uL (0.0-0.2); #Eosinphils 0.2 thou/uL (0.0-0.7); #Lymphocytes 1.4 thou/uL (1.20-3.40); #Monocytes 0.8 thou/uL (0.11-0.59); #Neutrophils 10.2 thou/uL (1.40-6.50); %Basophils 0.5 % (0.0-1.0); %Eosinophils 1.3 % (0.0-10.0); %Monocytes 6.5 % (0.0-10.0); %Neutrophils 80.7 % (42.0-75.0); Hemoglobin 7.7 g/dL (12.0-16.0); Mean Corpuscular HGB CONC 29.2 g/dL (32.0-36.0); Mean Corpuscular Hemoglobin 23.1 pg (27.0-31.0); Mean Corpuscular Volume 79.1 fL (78.0-98.0); Mean Platelet Volume 10.9 fL (7.4-10.4); Platelet Count 214 thou/uL (130-400); RBC Distribution Width 19.2 % (11.5-14.5); Red Blood Cell (RBC) Count 3.31 mill/uL (4.20-5.40); White Blood Cell (WBC) Count 12.6 thou/uL (4.8-10.8)
[2021-04-19 06:00] LABS: Anion Gap 13 mmol/L (10-20); BUN (Urea Nitrogen) 59 mg/dL (9.8-20.1); Calc. Creatinine Clearance 62 mL/min (70-130); Calcium 8.6 mg/dL (7.8-10.44); Carbon Dioxide 32 mmol/L (23-31); Chloride 103 mmol/L (98-107); Glucose 136 mg/dL (80-115); Potassium 4.7 mmol/L (3.5-5.1); Sodium 143 mmol/L (136-145)
[2021-04-19] MEDS: Ampicillin/Sulbactam 1.5 GM in Sodium Chloride 0.9% 100 ML IVPB SCH ×3 (06:29→17:52)
[2021-04-19] MEDS: Mometasone 200 MCG/Formoterol 5 MCG 120 PUFF INHALER INH SCH ×2 (07:49→19:28)
[2021-04-19] MEDS: Ipratropium Bromide 2.5 ml Neb NEB SCH ×3 (07:54→19:38)
[2021-04-19] MEDS: Enoxaparin Sodium 40 MG/0.4 ML SYRINGE SC SCH (07:58)
[2021-04-19] MEDS: guaiFENesin ER 600 MG TAB PO SCH ×2 (07:59→21:24)
[2021-04-19] MEDS: Alogliptin 6.25 MG TAB PO SCH (07:59)
[2021-04-19] MEDS: Flecainide 50 MG TAB PO SCH ×2 (07:59→21:24)
[2021-04-19] MEDS: Aspirin Chewable 81 MG TAB PO SCH (08:02)
[2021-04-19] MEDS: HumaLOG 300 UNITS/3 ML VIAL SC PRN ×2 (11:39→18:02)
[2021-04-19] MEDS: Acetaminophen/Codeine 30-300mg Tablet PO PRN (13:48)
[2021-04-20] MEDS: Ipratropium Bromide 2.5 ml Neb NEB SCH ×2 (00:42→06:41)
[2021-04-20] MEDS: Ampicillin/Sulbactam 1.5 GM in Sodium Chloride 0.9% 100 ML IVPB SCH ×5 (00:55→23:50)
[2021-04-20] MEDS: Benzonatate 100 MG CAP PO PRN (01:11)
[2021-04-20] MEDS: Levothyroxine Sodium 112 MCG TAB PO SCH (05:41)
[2021-04-20] MEDS: MEROPENEM 1 GM/50 ML 1 GM in Premix Bag 1 BAG IVPB SCH ×3 (05:41→21:03)
[2021-04-20] MEDS: Acetaminophen 325 MG TAB PO SCH ×5 (05:41→21:04)
[2021-04-20 06:30] LABS: #Basophils 0.1 thou/uL (0.0-0.2); #Eosinphils 0.3 thou/uL (0.0-0.7); #Lymphocytes 1.2 thou/uL (1.20-3.40); #Monocytes 0.7 thou/uL (0.11-0.59); #Neutrophils 8.2 thou/uL (1.40-6.50); %Basophils 0.6 % (0.0-1.0); %Eosinophils 2.9 % (0.0-10.0); %Lymphocytes 11.8 % (21.0-51.0); %Monocytes 6.5 % (0.0-10.0); %Neutrophils 78.3 % (42.0-75.0); Hemoglobin 8.1 g/dL (12.0-16.0); Mean Corpuscular HGB CONC 29.7 g/dL (32.0-36.0); Mean Corpuscular Hemoglobin 23.3 pg (27.0-31.0); Mean Corpuscular Volume 78.4 fL (78.0-98.0); Mean Platelet Volume 10.8 fL (7.4-10.4); Platelet Count 213 thou/uL (130-400); RBC Distribution Width 19.2 % (11.5-14.5); Red Blood Cell (RBC) Count 3.47 mill/uL (4.20-5.40); White Blood Cell (WBC) Count 10.5 thou/uL (4.8-10.8)
[2021-04-20 06:40] LABS: Anion Gap 10 mmol/L (10-20); BUN (Urea Nitrogen) 47 mg/dL (9.8-20.1); Calc. Creatinine Clearance 82 mL/min (70-130); Calcium 8.8 mg/dL (7.8-10.44); Carbon Dioxide 31 mmol/L (23-31); Chloride 104 mmol/L (98-107); Glucose 150 mg/dL (80-115); Potassium 4.1 mmol/L (3.5-5.1); Sodium 141 mmol/L (136-145)
[2021-04-20] MEDS: Mometasone 200 MCG/Formoterol 5 MCG 120 PUFF INHALER INH SCH ×2 (06:40→18:14)
[2021-04-20] MEDS: Sodium Chloride 0.45% 1,000 ML IV SCH ×2 (07:59→18:24)
[2021-04-20] MEDS: Aspirin Chewable 81 MG TAB PO SCH (08:01)
[2021-04-20] MEDS: Alogliptin 6.25 MG TAB PO SCH (08:01)
[2021-04-20] MEDS: Enoxaparin Sodium 40 MG/0.4 ML SYRINGE SC SCH (08:02)
[2021-04-20] MEDS ORDERED: Zolpidem Tartrate 5 MG TAB PO PRN (08:03)
[2021-04-20] MEDS: guaiFENesin ER 600 MG TAB PO SCH ×2 (08:06→21:03)
[2021-04-20] MEDS: Flecainide 50 MG TAB PO SCH ×2 (08:06→21:04)
[2021-04-20] MEDS: Acetaminophen/Codeine 30-300mg Tablet PO PRN ×4 (09:31→21:57)
[2021-04-20] MEDS: HumaLOG 300 UNITS/3 ML VIAL SC PRN ×2 (11:59→18:03)
[2021-04-21] MEDS: Sodium Chloride 0.45% 1,000 ML IV SCH ×5 (03:01→21:27)
[2021-04-21] MEDS: Acetaminophen 325 MG TAB PO SCH ×5 (05:02→21:25)
[2021-04-21] MEDS: MEROPENEM 1 GM/50 ML 1 GM in Premix Bag 1 BAG IVPB SCH (05:03)
[2021-04-21] MEDS: Levothyroxine Sodium 112 MCG TAB PO SCH (05:03)
[2021-04-21] MEDS: Ampicillin/Sulbactam 1.5 GM in Sodium Chloride 0.9% 100 ML IVPB SCH (05:04)
[2021-04-21 06:26] LABS: Hemoglobin 7.6 g/dL (12.0-16.0); Mean Corpuscular HGB CONC 29.8 g/dL (32.0-36.0); Mean Corpuscular Hemoglobin 23.5 pg (27.0-31.0); Mean Corpuscular Volume 78.8 fL (78.0-98.0); Mean Platelet Volume 10.6 fL (7.4-10.4); Platelet Count 189 thou/uL (130-400); RBC Distribution Width 19.2 % (11.5-14.5); Red Blood Cell (RBC) Count 3.22 mill/uL (4.20-5.40); White Blood Cell (WBC) Count 10.2 thou/uL (4.8-10.8)
[2021-04-21 06:37] LABS: Anion Gap 10 mmol/L (10-20); BUN (Urea Nitrogen) 38 mg/dL (9.8-20.1); Calc. Creatinine Clearance 93 mL/min (70-130); Calcium 8.7 mg/dL (7.8-10.44); Carbon Dioxide 30 mmol/L (23-31); Chloride 106 mmol/L (98-107); Glucose 146 mg/dL (80-115); Potassium 4.3 mmol/L (3.5-5.1); Sodium 142 mmol/L (136-145)
[2021-04-21] MEDS: Mometasone 200 MCG/Formoterol 5 MCG 120 PUFF INHALER INH SCH ×2 (07:18→19:17)
[2021-04-21 07:28] LABS: #Basophils 0.1 thou/uL (0.0-0.2); #Eosinphils 0.4 thou/uL (0.0-0.7); #Lymphocytes 1.1 thou/uL (1.20-3.40); #Monocytes 0.5 thou/uL (0.11-0.59); #Neutrophils 8.2 thou/uL (1.40-6.50); %Basophils 0.6 % (0.0-1.0); %Eosinophils 4.2 % (0.0-10.0); %Lymphocytes 10.9 % (21.0-51.0); %Monocytes 4.4 % (0.0-10.0); %Neutrophils 79.9 % (42.0-75.0); Hypochromia MODERATE=16-30 cells (100X) (0-5/hpf); MDiff Complete? YES; Ovalocytes SLIGHT = 2-5 cells (100X) (0-1/hpf); Platelet Morphology Comment Appears Adequate; Polychromasia SLIGHT = 2-3 cells (100X) (0-2/hpf)
[2021-04-21] MEDS: Flecainide 50 MG TAB PO SCH ×2 (08:45→21:26)
[2021-04-21] MEDS: Alogliptin 6.25 MG TAB PO SCH (08:45)
[2021-04-21] MEDS: Clindamycin 150 MG CAP PO SCH ×3 (08:45→21:26)
[2021-04-21] MEDS: guaiFENesin ER 600 MG TAB PO SCH (08:46)
[2021-04-21] MEDS: Nystatin Powder 15 GM BOT TOP SCH (08:46)
[2021-04-21] MEDS: Enoxaparin Sodium 40 MG/0.4 ML SYRINGE SC SCH (08:46)
[2021-04-21] MEDS: Docusate 100 MG CAP PO SCH ×2 (08:46→21:27)
[2021-04-21] MEDS: Amoxicillin/Potassium Clav 500 MG TAB PO SCH ×2 (08:47→21:25)
[2021-04-21] MEDS: Aspirin Chewable 81 MG TAB PO SCH (09:33)
[2021-04-21] MEDS: Acetaminophen/Codeine 30-300mg Tablet PO PRN (13:28)
[2021-04-21] MEDS: HumaLOG 300 UNITS/3 ML VIAL SC PRN (13:33)
[2021-04-21] MEDS ORDERED: Cyclobenzaprine 10 MG TAB PO PRN (20:18)
[2021-04-22] MEDS: Benzonatate 100 MG CAP PO PRN (02:21)
[2021-04-22 03:15] LABS: Bilirubin Negative (Negative); Blood, Urine Negative (Negative); Glucose, Urine (Dipstick) Negative (Negative); Ketone, Urine Negative (Negative); Leukocyte Negative (Negative); Nitrite Negative (Negative); Protein, Urine (Dipstick) Negative (Neg-Trace); Urobilinogen 0.2 mg/dL (Less than 2); pH, Urine 5.5 (5.0-9.0)
[2021-04-22 03:16] LABS: Bacteria/HPF None Seen HPF (None Seen); RBC/HPF 0-3 HPF (0-3); Squamous Epithelial 0-3 HPF (0-3); WBC/HPF 0-3 HPF (0-3)
[2021-04-22 03:18] LABS: Clarity Clear (Clear)
[2021-04-22 03:32] LABS: Amphetamine Not Detected (NotDetected); Barbiturates Screen Not Detected (NotDetected); Benzodiazepine Screen Not Detected (NotDetected); Cocaine Metabolite Screen Not Detected (NotDetected); Medtox Control Line Valid? VALID (VALID); Medtox Reader # READER 4; Methadone Not Detected (NotDetected); Methamphetamine Not Detected (NotDetected); Opiate Screen Detected (NotDetected); Oxycodone Screen Not Detected (NotDetected); Phencyclidine (PCP) Not Detected (NotDetected); THC/Cannabinoid Screen Not Detected (NotDetected); Tricyclic Screen Not Detected (NotDetected)
[2021-04-22] MEDS: Acetaminophen 325 MG TAB PO SCH ×5 (06:01→22:36)
[2021-04-22] MEDS: Levothyroxine Sodium 112 MCG TAB PO SCH (06:02)
[2021-04-22 06:12] LABS: #Basophils 0.1 thou/uL (0.0-0.2); #Eosinphils 0.5 thou/uL (0.0-0.7); #Lymphocytes 1.4 thou/uL (1.20-3.40); #Monocytes 0.6 thou/uL (0.11-0.59); #Neutrophils 7.4 thou/uL (1.40-6.50); %Basophils 0.6 % (0.0-1.0); %Eosinophils 4.9 % (0.0-10.0); %Lymphocytes 14.1 % (21.0-51.0); %Monocytes 6.3 % (0.0-10.0); %Neutrophils 74.1 % (42.0-75.0); Hemoglobin 6.4 g/dL (12.0-16.0); Mean Corpuscular HGB CONC 28.4 g/dL (32.0-36.0); Mean Corpuscular Hemoglobin 22.3 pg (27.0-31.0); Mean Corpuscular Volume 78.4 fL (78.0-98.0); Mean Platelet Volume 10.5 fL (7.4-10.4); Platelet Count 173 thou/uL (130-400); RBC Distribution Width 19.4 % (11.5-14.5); Red Blood Cell (RBC) Count 2.88 mill/uL (4.20-5.40)
[2021-04-22 06:21] LABS: Anion Gap 9 mmol/L (10-20); BUN (Urea Nitrogen) 35 mg/dL (9.8-20.1); Calc. Creatinine Clearance 94 mL/min (70-130); Calcium 8.4 mg/dL (7.8-10.44); Carbon Dioxide 31 mmol/L (23-31); Chloride 106 mmol/L (98-107); Glucose 153 mg/dL (80-115); Potassium 4.5 mmol/L (3.5-5.1); Sodium 141 mmol/L (136-145)
[2021-04-22] MEDS: Mometasone 200 MCG/Formoterol 5 MCG 120 PUFF INHALER INH SCH ×2 (07:13→19:10)
[2021-04-22] MEDS: Enoxaparin Sodium 40 MG/0.4 ML SYRINGE SC SCH (09:08)
[2021-04-22] MEDS: Nystatin Powder 15 GM BOT TOP SCH (09:08)
[2021-04-22] MEDS: Flecainide 50 MG TAB PO SCH ×2 (09:09→22:35)
[2021-04-22] MEDS: Alogliptin 6.25 MG TAB PO SCH (09:09)
[2021-04-22] MEDS: Aspirin Chewable 81 MG TAB PO SCH (09:12)
[2021-04-22] MEDS: Clindamycin 150 MG CAP PO SCH ×3 (09:12→22:35)
[2021-04-22] MEDS: Docusate 100 MG CAP PO SCH ×2 (09:12→22:39)
[2021-04-22] MEDS: Amoxicillin/Potassium Clav 500 MG TAB PO SCH ×2 (09:18→22:35)
[2021-04-22] MEDS ORDERED: Furosemide 20 MG/2 ML VIAL SLOW IVP SCH (19:45)
[2021-04-22] MEDS: Sodium Chloride 0.45% 1,000 ML IV SCH (21:00)
[2021-04-22] MEDS ORDERED: predniSONE 50 MG TAB PO SCH (21:00)
[2021-04-22] MEDS: HumaLOG 300 UNITS/3 ML VIAL SC PRN (23:21)
[2021-04-23] MEDS: Acetaminophen/Codeine 30-300mg Tablet PO PRN ×3 (01:38→20:29)
[2021-04-23] MEDS: Levothyroxine Sodium 112 MCG TAB PO SCH (05:45)
[2021-04-23] MEDS: Acetaminophen 325 MG TAB PO SCH ×4 (05:45→23:22)
[2021-04-23 06:34] LABS: #Basophils 0.1 thou/uL (0.0-0.2); #Eosinphils 0.4 thou/uL (0.0-0.7); #Lymphocytes 1.4 thou/uL (1.20-3.40); #Monocytes 0.7 thou/uL (0.11-0.59); #Neutrophils 8.4 thou/uL (1.40-6.50); %Basophils 0.8 % (0.0-1.0); %Eosinophils 3.8 % (0.0-10.0); %Lymphocytes 12.5 % (21.0-51.0); %Monocytes 6.4 % (0.0-10.0); %Neutrophils 76.6 % (42.0-75.0); Hemoglobin 8.4 g/dL (12.0-16.0); Mean Corpuscular HGB CONC 30.4 g/dL (32.0-36.0); Mean Corpuscular Hemoglobin 24.6 pg (27.0-31.0); Mean Corpuscular Volume 80.8 fL (78.0-98.0); Mean Platelet Volume 11.2 fL (7.4-10.4); Platelet Count 180 thou/uL (130-400); RBC Distribution Width 18.9 % (11.5-14.5); Red Blood Cell (RBC) Count 3.42 mill/uL (4.20-5.40)
[2021-04-23 06:51] LABS: Anion Gap 12 mmol/L (10-20); BUN (Urea Nitrogen) 35 mg/dL (9.8-20.1); Calc. Creatinine Clearance 103 mL/min (70-130); Carbon Dioxide 28 mmol/L (23-31); Chloride 108 mmol/L (98-107); Glucose 130 mg/dL (80-115); Potassium 4.7 mmol/L (3.5-5.1); Sodium 143 mmol/L (136-145)
[2021-04-23] MEDS: Mometasone 200 MCG/Formoterol 5 MCG 120 PUFF INHALER INH SCH ×2 (07:18→18:59)
[2021-04-23] MEDS ORDERED: diphenhydrAMINE 50 MG CAP PO SCH (08:00)
[2021-04-23] MEDS ORDERED: Famotidine/PF 20 mg/2ml Vial SLOW IVP SCH (08:30)
[2021-04-23] MEDS ORDERED: Hydrocortisone Sod Succ/PF 100 mg/2 ml Vial IVP SCH ×2 (08:30→17:45)
[2021-04-23] MEDS ORDERED: diphenhydrAMINE 50 MG/ML VIAL IVP SCH ×2 (08:30→17:45)
[2021-04-23] MEDS: Sodium Chloride 0.45% 1,000 ML IV SCH ×2 (09:59→15:59)
[2021-04-23] MEDS: Alogliptin 6.25 MG TAB PO SCH (10:21)
[2021-04-23] MEDS: Aspirin Chewable 81 MG TAB PO SCH (10:21)
[2021-04-23] MEDS: Clindamycin 150 MG CAP PO SCH ×3 (10:22→20:28)
[2021-04-23] MEDS: Flecainide 50 MG TAB PO SCH ×2 (10:22→20:28)
[2021-04-23] MEDS: Docusate 100 MG CAP PO SCH ×2 (10:22→20:30)
[2021-04-23] MEDS: Amoxicillin/Potassium Clav 500 MG TAB PO SCH ×2 (10:22→20:28)
[2021-04-23] MEDS ORDERED: Fentanyl 100 MCG/2 ML VIAL SLOW IVP PRN (10:51)
[2021-04-23] MEDS: Enoxaparin Sodium 40 MG/0.4 ML SYRINGE SC SCH (12:51)
[2021-04-23] MEDS: Nystatin Powder 15 GM BOT TOP SCH (12:52)
[2021-04-23] MEDS ORDERED: GoLYTELY 4,000 ml Bottle PO SCH (13:45)
[2021-04-23] MEDS ORDERED: Famotidine/PF 20 mg/2ml Vial IVPB SCH (17:45)
[2021-04-23] MEDS: Benzonatate 100 MG CAP PO PRN (20:28)
[2021-04-23] MEDS: HumaLOG 300 UNITS/3 ML VIAL SC PRN (20:39)
[2021-04-24] MEDS: Sodium Chloride 0.45% 1,000 ML IV SCH ×3 (03:16→21:03)
[2021-04-24] MEDS: Acetaminophen 325 MG TAB PO SCH ×5 (05:29→22:29)
[2021-04-24] MEDS: Levothyroxine Sodium 112 MCG TAB PO SCH (05:29)
[2021-04-24] MEDS: HumaLOG 300 UNITS/3 ML VIAL SC PRN ×2 (05:33→20:58)
[2021-04-24 05:58] LABS: #Lymphocytes 0.6 thou/uL (1.20-3.40); #Monocytes 0.1 thou/uL (0.11-0.59); #Neutrophils 7.2 thou/uL (1.40-6.50); %Basophils 0.4 % (0.0-1.0); %Eosinophils 0.3 % (0.0-10.0); %Lymphocytes 7.2 % (21.0-51.0); %Monocytes 1.2 % (0.0-10.0); %Neutrophils 90.8 % (42.0-75.0); Hemoglobin 8.7 g/dL (12.0-16.0); Mean Corpuscular HGB CONC 30.4 g/dL (32.0-36.0); Mean Corpuscular Hemoglobin 24.7 pg (27.0-31.0); Mean Corpuscular Volume 81.2 fL (78.0-98.0); Platelet Count 185 thou/uL (130-400); RBC Distribution Width 19.9 % (11.5-14.5); Red Blood Cell (RBC) Count 3.52 mill/uL (4.20-5.40); White Blood Cell (WBC) Count 7.9 thou/uL (4.8-10.8)
[2021-04-24 06:12] LABS: Anion Gap 14 mmol/L (10-20); BUN (Urea Nitrogen) 29 mg/dL (9.8-20.1); Calc. Creatinine Clearance 112 mL/min (70-130); Calcium 8.8 mg/dL (7.8-10.44); Carbon Dioxide 25 mmol/L (23-31); Chloride 106 mmol/L (98-107); Glucose 202 mg/dL (80-115); Potassium 4.7 mmol/L (3.5-5.1); Sodium 140 mmol/L (136-145)
[2021-04-24] MEDS: Mometasone 200 MCG/Formoterol 5 MCG 120 PUFF INHALER INH SCH ×2 (07:06→18:49)
[2021-04-24] MEDS: Amoxicillin/Potassium Clav 500 MG TAB PO SCH ×2 (09:30→20:47)
[2021-04-24] MEDS: Alogliptin 6.25 MG TAB PO SCH (09:31)
[2021-04-24] MEDS: Acetaminophen/Codeine 30-300mg Tablet PO PRN ×3 (09:32→20:55)
[2021-04-24] MEDS: Aspirin Chewable 81 MG TAB PO SCH (09:32)
[2021-04-24] MEDS: Flecainide 50 MG TAB PO SCH ×2 (09:33→20:47)
[2021-04-24] MEDS: Enoxaparin Sodium 40 MG/0.4 ML SYRINGE SC SCH (09:35)
[2021-04-24] MEDS: Nystatin Powder 15 GM BOT TOP SCH (09:36)
[2021-04-24] MEDS: Clindamycin 150 MG CAP PO SCH ×3 (09:36→20:47)
[2021-04-24] MEDS: Docusate 100 MG CAP PO SCH ×2 (09:36→20:47)
[2021-04-24] MEDS: Benzonatate 100 MG CAP PO PRN ×2 (09:41→20:55)
[2021-04-24] MEDS ORDERED: GoLYTELY 4,000 ml Bottle PO SCH (17:00)
[2021-04-25] MEDS: Acetaminophen 325 MG TAB PO SCH ×4 (05:02→22:14)
[2021-04-25] MEDS: Levothyroxine Sodium 112 MCG TAB PO SCH (05:02)
[2021-04-25 06:30] LABS: #Basophils 0.1 thou/uL (0.0-0.2); #Eosinphils 0.3 thou/uL (0.0-0.7); #Lymphocytes 1.8 thou/uL (1.20-3.40); #Monocytes 0.7 thou/uL (0.11-0.59); #Neutrophils 8.3 thou/uL (1.40-6.50); %Basophils 0.6 % (0.0-1.0); %Eosinophils 2.9 % (0.0-10.0); %Lymphocytes 16.1 % (21.0-51.0); %Monocytes 5.9 % (0.0-10.0); %Neutrophils 74.5 % (42.0-75.0); Hemoglobin 9.8 g/dL (12.0-16.0); Mean Corpuscular HGB CONC 30.4 g/dL (32.0-36.0); Mean Corpuscular Volume 82.2 fL (78.0-98.0); Mean Platelet Volume 10.8 fL (7.4-10.4); Platelet Count 240 thou/uL (130-400); RBC Distribution Width 20.6 % (11.5-14.5); Red Blood Cell (RBC) Count 3.93 mill/uL (4.20-5.40); White Blood Cell (WBC) Count 11.2 thou/uL (4.8-10.8)
[2021-04-25 06:50] LABS: Anion Gap 15 mmol/L (10-20); BUN (Urea Nitrogen) 27 mg/dL (9.8-20.1); Calc. Creatinine Clearance 106 mL/min (70-130); Calcium 9.3 mg/dL (7.8-10.44); Carbon Dioxide 31 mmol/L (23-31); Chloride 108 mmol/L (98-107); Glucose 93 mg/dL (80-115); Potassium 4.7 mmol/L (3.5-5.1); Sodium 149 mmol/L (136-145)
[2021-04-25] MEDS: Mometasone 200 MCG/Formoterol 5 MCG 120 PUFF INHALER INH SCH ×2 (06:58→22:04)
[2021-04-25] MEDS ORDERED: GoLYTELY 4,000 ml Bottle PO SCH (07:45)
[2021-04-25] MEDS: Clindamycin 150 MG CAP PO SCH ×3 (08:08→21:57)
[2021-04-25] MEDS: Docusate 100 MG CAP PO SCH ×2 (08:09→22:15)
[2021-04-25] MEDS: Amoxicillin/Potassium Clav 500 MG TAB PO SCH ×2 (08:09→22:17)
[2021-04-25] MEDS: Acetaminophen/Codeine 30-300mg Tablet PO PRN ×3 (08:09→21:57)
[2021-04-25] MEDS: Flecainide 50 MG TAB PO SCH ×2 (08:11→21:57)
[2021-04-25] MEDS: Enoxaparin Sodium 40 MG/0.4 ML SYRINGE SC SCH (08:12)
[2021-04-25] MEDS: Nystatin Powder 15 GM BOT TOP SCH (08:12)
[2021-04-25] MEDS: Alogliptin 6.25 MG TAB PO SCH (08:12)
[2021-04-25] MEDS: Aspirin Chewable 81 MG TAB PO SCH (08:13)
[2021-04-25] MEDS: cloNIDine 0.1 MG TAB PO PRN ×2 (08:45→12:08)
[2021-04-25] MEDS: Sodium Chloride 0.45% 1,000 ML IV SCH ×4 (09:23→21:56)
[2021-04-25] MEDS ORDERED: Hyoscyamine Sulfate SL 0.125 mg Tablet SL PRN (15:55)
[2021-04-25] MEDS ORDERED: PHENYLEPHRINE-NS 100 MCG/ML 10 ML SYRINGE ONE (18:52)
[2021-04-25] MEDS ORDERED: PROPOFOL 200 MG/20 ML VIAL ONE (18:52)
[2021-04-25] MEDS ORDERED: Ondansetron HCl/PF 4 MG/2 ML Vial IVP PRN (20:07)
[2021-04-25] MEDS ORDERED: Promethazine HCl 25 MG/ML VIAL SLOW IVP PRN (20:07)
[2021-04-25] MEDS ORDERED: Promethazine HCl 25 MG/ML VIAL IM PRN (20:07)
[2021-04-25] MEDS ORDERED: Furosemide 40 MG/4 ML VIAL ONE (20:26)
[2021-04-25] MEDS ORDERED: Furosemide 20 MG/2 ML VIAL ONE (20:29)
[2021-04-26] MEDS: Levothyroxine Sodium 112 MCG TAB PO SCH (06:20)
[2021-04-26] MEDS: Acetaminophen 325 MG TAB PO SCH ×5 (06:21→23:16)
[2021-04-26] MEDS: Mometasone 200 MCG/Formoterol 5 MCG 120 PUFF INHALER INH SCH ×2 (06:25→18:29)
[2021-04-26] MEDS: Docusate 100 MG CAP PO SCH ×2 (08:21→21:01)
[2021-04-26] MEDS: Clindamycin 150 MG CAP PO SCH ×3 (08:21→20:52)
[2021-04-26] MEDS: Acetaminophen/Codeine 30-300mg Tablet PO PRN ×3 (08:21→20:53)
[2021-04-26] MEDS: Alogliptin 6.25 MG TAB PO SCH (08:21)
[2021-04-26] MEDS: Flecainide 50 MG TAB PO SCH ×2 (08:21→20:52)
[2021-04-26] MEDS: Enoxaparin Sodium 40 MG/0.4 ML SYRINGE SC SCH (08:21)
[2021-04-26] MEDS: Aspirin Chewable 81 MG TAB PO SCH (08:21)
[2021-04-26] MEDS: Amoxicillin/Potassium Clav 500 MG TAB PO SCH ×2 (08:22→20:53)
[2021-04-26] MEDS: Benzonatate 100 MG CAP PO PRN ×2 (08:23→20:52)
[2021-04-26] MEDS: Nystatin Powder 15 GM BOT TOP SCH (08:26)
[2021-04-26] MEDS: HumaLOG 300 UNITS/3 ML VIAL SC PRN (12:38)
[2021-04-26] MEDS: Furosemide 40 MG/4 ML VIAL SLOW IVP SCH (15:11)
[2021-04-27] MEDS: Acetaminophen 325 MG TAB PO SCH ×6 (01:01→21:48)
[2021-04-27] MEDS: Acetaminophen/Codeine 30-300mg Tablet PO PRN ×2 (03:15→13:44)
[2021-04-27] MEDS: Levothyroxine Sodium 112 MCG TAB PO SCH (05:13)
[2021-04-27] MEDS: Furosemide 40 MG/4 ML VIAL SLOW IVP SCH ×2 (05:13→13:45)
[2021-04-27] MEDS: Mometasone 200 MCG/Formoterol 5 MCG 120 PUFF INHALER INH SCH ×2 (06:52→18:59)
[2021-04-27] MEDS: Aspirin Chewable 81 MG TAB PO SCH (08:50)
[2021-04-27] MEDS: Alogliptin 6.25 MG TAB PO SCH (08:51)
[2021-04-27] MEDS: Amoxicillin/Potassium Clav 500 MG TAB PO SCH ×2 (08:51→21:46)
[2021-04-27] MEDS: Docusate 100 MG CAP PO SCH ×3 (08:52→21:51)
[2021-04-27] MEDS: Clindamycin 150 MG CAP PO SCH ×3 (08:53→21:47)
[2021-04-27] MEDS: Enoxaparin Sodium 40 MG/0.4 ML SYRINGE SC SCH (08:53)
[2021-04-27] MEDS: Flecainide 50 MG TAB PO SCH ×2 (08:53→21:47)
[2021-04-27] MEDS: Nystatin Powder 15 GM BOT TOP SCH (08:54)
[2021-04-27] MEDS: Zolpidem Tartrate 5 MG TAB PO SCH (23:17)
[2021-04-28] MEDS: Zolpidem Tartrate 5 MG TAB PO SCH (00:15)
[2021-04-28] MEDS: Acetaminophen 325 MG TAB PO SCH ×5 (06:22→21:45)
[2021-04-28] MEDS: Levothyroxine Sodium 112 MCG TAB PO SCH (06:23)
[2021-04-28] MEDS: Furosemide 40 MG/4 ML VIAL SLOW IVP SCH ×2 (06:24→15:04)
[2021-04-28 07:04] LABS: #Basophils 0.1 thou/uL (0.0-0.2); #Eosinphils 0.1 thou/uL (0.0-0.7); #Monocytes 0.6 thou/uL (0.11-0.59); #Neutrophils 8.1 thou/uL (1.40-6.50); %Basophils 0.7 % (0.0-1.0); %Eosinophils 1.3 % (0.0-10.0); %Monocytes 6.3 % (0.0-10.0); %Neutrophils 81.7 % (42.0-75.0); Hemoglobin 8.6 g/dL (12.0-16.0); Mean Corpuscular HGB CONC 30.3 g/dL (32.0-36.0); Mean Corpuscular Volume 82.2 fL (78.0-98.0); Mean Platelet Volume 10.8 fL (7.4-10.4); Platelet Count 220 thou/uL (130-400); RBC Distribution Width 21.3 % (11.5-14.5); Red Blood Cell (RBC) Count 3.44 mill/uL (4.20-5.40)
[2021-04-28 07:26] LABS: Anion Gap 15 mmol/L (10-20); BUN (Urea Nitrogen) 17 mg/dL (9.8-20.1); Calc. Creatinine Clearance 112 mL/min (70-130); Calcium 8.3 mg/dL (7.8-10.44); Carbon Dioxide 27 mmol/L (23-31); Chloride 103 mmol/L (98-107); Glucose 169 mg/dL (80-115); Potassium 3.8 mmol/L (3.5-5.1); Sodium 141 mmol/L (136-145)
[2021-04-28] MEDS: Mometasone 200 MCG/Formoterol 5 MCG 120 PUFF INHALER INH SCH ×2 (07:35→18:51)
[2021-04-28] MEDS ORDERED: Zolpidem Tartrate 5 MG TAB PO PRN (08:03)
[2021-04-28] MEDS: Aspirin Chewable 81 MG TAB PO SCH (08:28)
[2021-04-28] MEDS: Nystatin Powder 15 GM BOT TOP SCH (08:28)
[2021-04-28] MEDS: Flecainide 50 MG TAB PO SCH ×2 (08:28→21:23)
[2021-04-28] MEDS: Docusate 100 MG CAP PO SCH ×2 (08:28→21:40)
[2021-04-28] MEDS: Alogliptin 6.25 MG TAB PO SCH (08:28)
[2021-04-28] MEDS: Clindamycin 150 MG CAP PO SCH ×3 (08:28→21:23)
[2021-04-28] MEDS: Enoxaparin Sodium 40 MG/0.4 ML SYRINGE SC SCH (08:29)
[2021-04-28] MEDS: Acetaminophen/Codeine 30-300mg Tablet PO PRN (08:29)
[2021-04-28] MEDS: Amoxicillin/Potassium Clav 500 MG TAB PO SCH ×2 (08:34→21:23)
[2021-04-29] MEDS: Acetaminophen/Codeine 30-300mg Tablet PO PRN ×3 (04:24→18:16)
[2021-04-29] MEDS: Acetaminophen 325 MG TAB PO SCH ×5 (05:30→21:26)
[2021-04-29] MEDS: Furosemide 40 MG/4 ML VIAL SLOW IVP SCH ×2 (06:20→13:51)
[2021-04-29] MEDS: Levothyroxine Sodium 112 MCG TAB PO SCH (06:20)
[2021-04-29 06:24] LABS: #Basophils 0.1 thou/uL (0.0-0.2); #Eosinphils 0.2 thou/uL (0.0-0.7); #Lymphocytes 1.1 thou/uL (1.20-3.40); #Monocytes 0.5 thou/uL (0.11-0.59); #Neutrophils 8.3 thou/uL (1.40-6.50); %Basophils 0.7 % (0.0-1.0); %Eosinophils 2.2 % (0.0-10.0); %Lymphocytes 10.9 % (21.0-51.0); %Monocytes 4.6 % (0.0-10.0); %Neutrophils 81.7 % (42.0-75.0); Hemoglobin 8.3 g/dL (12.0-16.0); Mean Corpuscular HGB CONC 30.2 g/dL (32.0-36.0); Mean Corpuscular Hemoglobin 24.9 pg (27.0-31.0); Mean Corpuscular Volume 82.5 fL (78.0-98.0); Mean Platelet Volume 10.5 fL (7.4-10.4); Platelet Count 239 thou/uL (130-400); RBC Distribution Width 21.1 % (11.5-14.5); Red Blood Cell (RBC) Count 3.31 mill/uL (4.20-5.40); White Blood Cell (WBC) Count 10.2 thou/uL (4.8-10.8)
[2021-04-29 06:37] LABS: Anion Gap 10 mmol/L (10-20); BUN (Urea Nitrogen) 18 mg/dL (9.8-20.1); Calc. Creatinine Clearance 91 mL/min (70-130); Calcium 8.4 mg/dL (7.8-10.44); Carbon Dioxide 31 mmol/L (23-31); Chloride 103 mmol/L (98-107); Glucose 212 mg/dL (80-115); Potassium 3.7 mmol/L (3.5-5.1); Sodium 140 mmol/L (136-145)
[2021-04-29] MEDS ORDERED: Temazepam 15 MG CAP PO PRN (07:29)
[2021-04-29] MEDS: Mometasone 200 MCG/Formoterol 5 MCG 120 PUFF INHALER INH SCH ×2 (08:04→17:59)
[2021-04-29] MEDS: Alogliptin 6.25 MG TAB PO SCH (08:37)
[2021-04-29] MEDS: Flecainide 50 MG TAB PO SCH ×2 (08:37→21:25)
[2021-04-29] MEDS: Clindamycin 150 MG CAP PO SCH ×2 (08:38→16:36)
[2021-04-29] MEDS: Docusate 100 MG CAP PO SCH ×3 (08:38→21:27)
[2021-04-29] MEDS: Enoxaparin Sodium 40 MG/0.4 ML SYRINGE SC SCH (08:38)
[2021-04-29] MEDS: Amoxicillin/Potassium Clav 500 MG TAB PO SCH (08:42)
[2021-04-29] MEDS: Nystatin Powder 15 GM BOT TOP SCH (08:43)
[2021-04-29] MEDS: Aspirin Chewable 81 MG TAB PO SCH (08:44)
[2021-04-29] MEDS ORDERED: PROPOFOL 200 MG/20 ML VIAL ONE (15:05)
[2021-04-29] MEDS: HumaLOG 300 UNITS/3 ML VIAL SC PRN (18:13)
[2021-04-30] MEDS: Furosemide 40 MG/4 ML VIAL SLOW IVP SCH ×2 (05:16→14:46)
[2021-04-30] MEDS: Acetaminophen/Codeine 30-300mg Tablet PO PRN ×4 (05:16→20:55)
[2021-04-30] MEDS: Levothyroxine Sodium 112 MCG TAB PO SCH (05:16)
[2021-04-30] MEDS: Benzonatate 100 MG CAP PO PRN (05:22)
[2021-04-30] MEDS: Acetaminophen 325 MG TAB PO SCH ×5 (06:18→22:09)
[2021-04-30 06:42] LABS: Anion Gap 12 mmol/L (10-20); BUN (Urea Nitrogen) 17 mg/dL (9.8-20.1); Calc. Creatinine Clearance 96 mL/min (70-130); Calcium 8.6 mg/dL (7.8-10.44); Carbon Dioxide 32 mmol/L (23-31); Chloride 103 mmol/L (98-107); Glucose 186 mg/dL (80-115); Sodium 143 mmol/L (136-145)
[2021-04-30] MEDS: Mometasone 200 MCG/Formoterol 5 MCG 120 PUFF INHALER INH SCH ×2 (07:09→20:04)
[2021-04-30 07:46] LABS: #Basophils 0.1 thou/uL (0.0-0.2); #Eosinphils 0.3 thou/uL (0.0-0.7); #Lymphocytes 1.1 thou/uL (1.20-3.40); #Monocytes 0.6 thou/uL (0.11-0.59); %Basophils 0.6 % (0.0-1.0); %Eosinophils 2.7 % (0.0-10.0); %Lymphocytes 11.2 % (21.0-51.0); %Monocytes 5.7 % (0.0-10.0); %Neutrophils 79.8 % (42.0-75.0); Anisocytosis MODERATE=16-30 cells (100X) (0-5/hpf); Hemoglobin 9.1 g/dL (12.0-16.0); MDiff Complete? YES; Mean Corpuscular HGB CONC 29.8 g/dL (32.0-36.0); Mean Corpuscular Hemoglobin 24.8 pg (27.0-31.0); Mean Corpuscular Volume 83.3 fL (78.0-98.0); Mean Platelet Volume 10.4 fL (7.4-10.4); Platelet Count 251 thou/uL (130-400); Poikilocytosis SLIGHT = 6-15 cells (100X) (0-5/hpf); RBC Distribution Width 21.4 % (11.5-14.5); Red Blood Cell (RBC) Count 3.65 mill/uL (4.20-5.40)
[2021-04-30] MEDS: Docusate 100 MG CAP PO SCH ×2 (09:10→20:57)
[2021-04-30] MEDS: Flecainide 50 MG TAB PO SCH ×2 (09:11→20:57)
[2021-04-30] MEDS: Alogliptin 6.25 MG TAB PO SCH (09:11)
[2021-04-30] MEDS: Nystatin Powder 15 GM BOT TOP SCH (09:11)
[2021-04-30] MEDS: Enoxaparin Sodium 40 MG/0.4 ML SYRINGE SC SCH (09:11)
[2021-04-30] MEDS: Aspirin Chewable 81 MG TAB PO SCH (09:11)
[2021-04-30] MEDS: Sodium Chloride 0.45% 1,000 ML IV SCH (09:15)
[2021-04-30] MEDS: HumaLOG 300 UNITS/3 ML VIAL SC PRN ×3 (11:53→22:37)
[2021-04-30] MEDS ORDERED: Nitroglycerin 0.4 MG TAB (25 Tab Bottle) SL PRN (13:42)
[2021-04-30] MEDS: Promethazine 25 MG TAB PO SCH (20:57)
[2021-04-30] MEDS: Temazepam 15 MG CAP PO SCH (22:37)
[2021-05-01] MEDS: Acetaminophen/Codeine 30-300mg Tablet PO PRN ×2 (06:08→16:49)
[2021-05-01] MEDS: Levothyroxine Sodium 112 MCG TAB PO SCH (06:08)
[2021-05-01] MEDS: Furosemide 40 MG/4 ML VIAL SLOW IVP SCH ×2 (06:08→13:36)
[2021-05-01] MEDS: Acetaminophen 325 MG TAB PO SCH ×5 (06:09→20:31)
[2021-05-01] MEDS: Mometasone 200 MCG/Formoterol 5 MCG 120 PUFF INHALER INH SCH ×2 (06:50→19:05)
[2021-05-01] MEDS: Docusate 100 MG CAP PO SCH ×2 (09:00→20:29)
[2021-05-01] MEDS: Alogliptin 6.25 MG TAB PO SCH (09:01)
[2021-05-01] MEDS: Flecainide 50 MG TAB PO SCH ×2 (09:02→20:30)
[2021-05-01] MEDS: Aspirin Chewable 81 MG TAB PO SCH (09:03)
[2021-05-01] MEDS: Enoxaparin Sodium 40 MG/0.4 ML SYRINGE SC SCH (09:03)
[2021-05-01] MEDS: Nystatin Powder 15 GM BOT TOP SCH (09:04)
[2021-05-01] MEDS: HumaLOG 300 UNITS/3 ML VIAL SC PRN ×2 (13:35→16:53)
[2021-05-01] MEDS: Promethazine 25 MG TAB PO SCH (20:29)
[2021-05-01] MEDS: Temazepam 15 MG CAP PO SCH (20:30)
[2021-05-02] MEDS: Acetaminophen/Codeine 30-300mg Tablet PO PRN ×3 (01:35→15:21)
[2021-05-02] MEDS: Acetaminophen 325 MG TAB PO SCH ×5 (06:02→22:00)
[2021-05-02] MEDS: HumaLOG 300 UNITS/3 ML VIAL SC PRN ×2 (06:04→16:58)
[2021-05-02] MEDS: Levothyroxine Sodium 112 MCG TAB PO SCH (06:05)
[2021-05-02] MEDS: Furosemide 40 MG/4 ML VIAL SLOW IVP SCH (06:05)
[2021-05-02 06:26] LABS: #Basophils 0.1 thou/uL (0.0-0.2); #Eosinphils 0.3 thou/uL (0.0-0.7); #Lymphocytes 1.1 thou/uL (1.20-3.40); #Monocytes 0.7 thou/uL (0.11-0.59); #Neutrophils 6.8 thou/uL (1.40-6.50); %Basophils 0.9 % (0.0-1.0); %Eosinophils 3.1 % (0.0-10.0); %Lymphocytes 12.1 % (21.0-51.0); %Monocytes 7.5 % (0.0-10.0); %Neutrophils 76.4 % (42.0-75.0); Hemoglobin 8.7 g/dL (12.0-16.0); Mean Corpuscular Hemoglobin 24.1 pg (27.0-31.0); Mean Corpuscular Volume 82.9 fL (78.0-98.0); Mean Platelet Volume 10.9 fL (7.4-10.4); Platelet Count 287 thou/uL (130-400); RBC Distribution Width 21.9 % (11.5-14.5); White Blood Cell (WBC) Count 8.9 thou/uL (4.8-10.8)
[2021-05-02 06:43] LABS: Anion Gap 16 mmol/L (10-20); BUN (Urea Nitrogen) 27 mg/dL (9.8-20.1); Calc. Creatinine Clearance 76 mL/min (70-130); Calcium 8.6 mg/dL (7.8-10.44); Carbon Dioxide 30 mmol/L (23-31); Chloride 102 mmol/L (98-107); Glucose 191 mg/dL (80-115); Potassium 4.2 mmol/L (3.5-5.1); Sodium 144 mmol/L (136-145)
[2021-05-02] MEDS: Mometasone 200 MCG/Formoterol 5 MCG 120 PUFF INHALER INH SCH ×2 (06:51→19:00)
[2021-05-02] MEDS: Aspirin Chewable 81 MG TAB PO SCH (08:36)
[2021-05-02] MEDS: Docusate 100 MG CAP PO SCH ×2 (08:37→21:02)
[2021-05-02] MEDS: Alogliptin 25 MG TAB PO SCH (08:37)
[2021-05-02] MEDS: Flecainide 50 MG TAB PO SCH ×2 (08:38→21:02)
[2021-05-02] MEDS: Enoxaparin Sodium 40 MG/0.4 ML SYRINGE SC SCH (08:38)
[2021-05-02] MEDS: Nystatin Powder 15 GM BOT TOP SCH (08:39)
[2021-05-02] MEDS ORDERED: Communication Order-Pharmacy FS SCH (11:00)
[2021-05-02] MEDS ORDERED: Furosemide 40 MG/4 ML VIAL SLOW IVP SCH (14:00)
[2021-05-02 14:07] VITALS: BMI 46.5
[2021-05-02] MEDS: Promethazine 25 MG TAB PO SCH (21:02)
[2021-05-02] MEDS: clonazePAM 1 MG TAB PO SCH (21:59)
[2021-05-03] MEDS ORDERED: Sodium Chloride 0.9% 500 ML IV SCH (00:01)
[2021-05-03] MEDS: Acetaminophen/Codeine 30-300mg Tablet PO PRN ×3 (02:20→15:18)
[2021-05-03] MEDS: Levothyroxine Sodium 112 MCG TAB PO SCH (06:03)
[2021-05-03] MEDS: Acetaminophen 325 MG TAB PO SCH ×5 (06:03→21:52)
[2021-05-03 06:18] LABS: #Basophils 0.1 thou/uL (0.0-0.2); #Eosinphils 0.2 thou/uL (0.0-0.7); #Lymphocytes 1.2 thou/uL (1.20-3.40); #Monocytes 0.7 thou/uL (0.11-0.59); #Neutrophils 5.6 thou/uL (1.40-6.50); %Basophils 0.8 % (0.0-1.0); %Eosinophils 2.9 % (0.0-10.0); %Lymphocytes 15.6 % (21.0-51.0); %Monocytes 8.8 % (0.0-10.0); Mean Corpuscular HGB CONC 30.4 g/dL (32.0-36.0); Mean Corpuscular Volume 82.4 fL (78.0-98.0); Mean Platelet Volume 11.2 fL (7.4-10.4); Platelet Count 222 thou/uL (130-400); RBC Distribution Width 21.7 % (11.5-14.5); Red Blood Cell (RBC) Count 3.19 mill/uL (4.20-5.40); White Blood Cell (WBC) Count 7.8 thou/uL (4.8-10.8)
[2021-05-03 06:41] LABS: Anion Gap 11 mmol/L (10-20); BUN (Urea Nitrogen) 31 mg/dL (9.8-20.1); Calc. Creatinine Clearance 83 mL/min (70-130); Calcium 7.9 mg/dL (7.8-10.44); Carbon Dioxide 30 mmol/L (23-31); Chloride 104 mmol/L (98-107); Glucose 156 mg/dL (80-115); Potassium 4.3 mmol/L (3.5-5.1); Sodium 141 mmol/L (136-145)
[2021-05-03] MEDS: Mometasone 200 MCG/Formoterol 5 MCG 120 PUFF INHALER INH SCH ×2 (07:11→18:40)
[2021-05-03] MEDS: Alogliptin 25 MG TAB PO SCH (08:16)
[2021-05-03] MEDS: Flecainide 50 MG TAB PO SCH ×2 (08:16→20:29)
[2021-05-03] MEDS: Aspirin Chewable 81 MG TAB PO SCH (08:16)
[2021-05-03] MEDS: Docusate 100 MG CAP PO SCH ×2 (08:17→20:29)
[2021-05-03] MEDS: Nystatin Powder 15 GM BOT TOP SCH (08:17)
[2021-05-03] MEDS ORDERED: predniSONE 50 MG TAB PO SCH ×2 (10:45→21:00)
[2021-05-03] MEDS: HumaLOG 300 UNITS/3 ML VIAL SC PRN ×2 (17:43→20:32)
[2021-05-03] MEDS: Promethazine 25 MG TAB PO SCH (20:29)
[2021-05-03] MEDS: clonazePAM 1 MG TAB PO SCH (21:53)
[2021-05-04] MEDS: Acetaminophen/Codeine 30-300mg Tablet PO PRN (00:53)
[2021-05-04] MEDS: Levothyroxine Sodium 112 MCG TAB PO SCH (05:54)
[2021-05-04] MEDS: Acetaminophen 325 MG TAB PO SCH ×2 (05:54→10:32)
[2021-05-04] MEDS: Mometasone 200 MCG/Formoterol 5 MCG 120 PUFF INHALER INH SCH (06:58)
[2021-05-04] MEDS: HumaLOG 300 UNITS/3 ML VIAL SC PRN ×2 (07:16→11:24)
[2021-05-04] MEDS: Aspirin Chewable 81 MG TAB PO SCH (08:13)
[2021-05-04] MEDS: Flecainide 50 MG TAB PO SCH (08:14)
[2021-05-04] MEDS: Nystatin Powder 15 GM BOT TOP SCH (08:14)
[2021-05-04] MEDS: Docusate 100 MG CAP PO SCH (08:14)
[2021-05-04] MEDS: Alogliptin 25 MG TAB PO SCH (08:17)
[2021-05-04 11:16] VITALS: BP 155/69; TEMP 97.6
== END 2021-05-04 11:35 | disposition home or self-care (01) | DRG 177 ==
LOC: ERS 10:33 → ERHOLD 14:12 → 2NO 17:03 → T4-B 04-18 10:57
PROVIDERS: ADMIT Specialist; ATTEND Specialist
PROC: 30233N1 Transfusion of Nonautologous Red Blood Cells into Peripheral Vein, Percutaneous Approach (ICD-10-PCS; principal; 2021-04-22)
PROC: 0DBN8ZZ Excision of Sigmoid Colon, Via Natural or Artificial Opening Endoscopic (ICD-10-PCS; 2021-04-25)
PROC: 0DB98ZX Excision of Duodenum, Via Natural or Artificial Opening Endoscopic, Diagnostic (ICD-10-PCS; 2021-04-25)
PROC: 0W3P8ZZ Control Bleeding in Gastrointestinal Tract, Via Natural or Artificial Opening Endoscopic (ICD-10-PCS; 2021-04-25)
PROC: 0DB78ZX Excision of Stomach, Pylorus, Via Natural or Artificial Opening Endoscopic, Diagnostic (ICD-10-PCS; 2021-04-25)
PROC: B24BZZ4 Ultrasonography of Heart with Aorta, Transesophageal (ICD-10-PCS; 2021-04-29)
DX: J69.0 Pneumonitis due to inhalation of food and vomit (principal); K31.811 Angiodysplasia of stomach and duodenum with bleeding; J96.00 Acute respiratory failure, unspecified whether with hypoxia or hypercapnia; I50.33 Acute on chronic diastolic (congestive) heart failure; F11.20 Opioid dependence, uncomplicated; I13.0 Hypertensive heart and chronic kidney disease with heart failure and stage 1 through stage 4 chronic kidney disease, or unspecified chronic kidney disease; Q21.1 Atrial septal defect; N17.9 Acute kidney failure, unspecified; K63.5 Polyp of colon; K29.70 Gastritis, unspecified, without bleeding; I08.3 Combined rheumatic disorders of mitral, aortic and tricuspid valves; E03.9 Hypothyroidism, unspecified; E78.00 Pure hypercholesterolemia, unspecified; E11.22 Type 2 diabetes mellitus with diabetic chronic kidney disease; Z96.653 Presence of artificial knee joint, bilateral; F41.9 Anxiety disorder, unspecified; F32.9 Major depressive disorder, single episode, unspecified; F17.210 Nicotine dependence, cigarettes, uncomplicated; I48.0 Paroxysmal atrial fibrillation; D63.1 Anemia in chronic kidney disease; E86.0 Dehydration; K21.9 Gastro-esophageal reflux disease without esophagitis; N18.2 Chronic kidney disease, stage 2 (mild); M85.80 Other specified disorders of bone density and structure, unspecified site; D50.9 Iron deficiency anemia, unspecified; R13.12 Dysphagia, oropharyngeal phase; J44.9 Chronic obstructive pulmonary disease, unspecified; G47.00 Insomnia, unspecified; I49.5 Sick sinus syndrome; Z90.49 Acquired absence of other specified parts of digestive tract; Z90.710 Acquired absence of both cervix and uterus; Z98.1 Arthrodesis status; Z98.890 Other specified postprocedural states; Z79.899 Other long term (current) drug therapy; Z79.890 Hormone replacement therapy; Z79.84 Long term (current) use of oral hypoglycemic drugs; Z95.0 Presence of cardiac pacemaker; Z90.89 Acquired absence of other organs; Z88.1 Allergy status to other antibiotic agents; Z91.041 Radiographic dye allergy status; Z88.6 Allergy status to analgesic agent
CPT/HCPCS: 36415; 36416; 36430; 71045; 71046; 71270; 71275; 80048; 80053; 80061; 80306; 81001; 83036; 83605; 83880; 84484; 85025; 85379; 85652; 86850; 86900; 86901; 87040; 88305; 93005; 93306; 93312; 94640; 96365; 96375; J0295; J1200; J1650; J1720; J1815; J1940; J1956; J2185; J2704; J2930; J3490; J7512; J7620; P9016; Q0169; Q9967; S0028

== ENCOUNTER 2021-05-09 10:01 | Inpatient (IN) | payer MEDICARE ==
[2021-05-09 11:02] LABS: Hemoglobin 8.7 g/dL (12.0-16.0); Mean Corpuscular HGB CONC 27.9 g/dL (32.0-36.0); Mean Corpuscular Hemoglobin 23.5 pg (27.0-31.0); Mean Corpuscular Volume 84.4 fL (78.0-98.0); Mean Platelet Volume 8.2 fL (7.4-10.4); Platelet Count 213 thou/uL (130-400); RBC Distribution Width 20.9 % (11.5-14.5); Red Blood Cell (RBC) Count 3.69 mill/uL (4.20-5.40); White Blood Cell (WBC) Count 24.1 thou/uL (4.8-10.8)
[2021-05-09 11:10] LABS: ALT (SGPT) 808 U/L (8-55); AST (SGOT) 1866 U/L (5-34); Albumin 3.8 g/dL (3.4-4.8); Alkaline Phosphatase 308 U/L (40-110); Anion Gap 28 mmol/L (10-20); BUN (Urea Nitrogen) 72 mg/dL (9.8-20.1); Bilirubin, Total 3.3 mg/dL (0.2-1.2); CK (CPK) 547 U/L (29-168); Calc. Creatinine Clearance 0 mL/min (70-130); Calcium 8.4 mg/dL (7.8-10.44); Carbon Dioxide 18 mmol/L (23-31); Chloride 101 mmol/L (98-107); Globulin 2.5 g/dL (2.4-3.5); Glucose 95 mg/dL (80-115); Potassium 6.4 mmol/L (3.5-5.1); Protein, Total 6.3 g/dL (5.8-8.1); Sodium 141 mmol/L (136-145)
[2021-05-09 11:40] LABS: CKMB 20.9 ng/mL (0-6.6)
[2021-05-09 11:42] LABS: Anisocytosis SLIGHT = 6-15 cells (100X) (0-5/hpf); Band 13 % (5-11); Lymphocytes 1 % (21-51); MDiff Complete? YES; Metamyelocyte 3 % (0-0); Monocytes 3 % (0-10); Myelocyte 1 % (0-0); Neutrophil 79 % (42-75); Nucleated RBC 2 % (0); Ovalocytes SLIGHT = 2-5 cells (100X) (0-1/hpf); Platelet Morphology Comment Appears Adequate; Polychromasia MODERATE = 3-4 cells (100X) (0-2/hpf)
[2021-05-09 11:49] LABS: Bacteria/HPF None Seen HPF (None Seen); Bilirubin 1+ (Negative); Blood, Urine Negative (Negative); Clarity Turbid (Clear); Glucose, Urine (Dipstick) Normal (Negative); Ketone, Urine Negative (Negative); Leukocyte Negative Leu/uL (Negative); Nitrite Negative (Negative); Protein, Urine (Dipstick) 100 mg/dL (Neg-Trace); RBC/HPF 0-3 HPF (0-3); Specific Gravity, Urine 1.021 (1.002-1.036); Squamous Epithelial None Seen HPF (0-3); Urobilinogen Normal mg/dL (Less than 2); WBC/HPF 0-3 HPF (0-3)
[2021-05-09] MEDS ORDERED: Insulin Regular 300 UNITS/3 ML VIAL ONE (12:04)
[2021-05-09] MEDS ORDERED: Dextrose 50% Abboject 50 ML SYRINGE ONE (12:04)
[2021-05-09] MEDS ORDERED: Cefepime 2 GM VIAL ONE (12:25)
[2021-05-09] MEDS ORDERED: Sodium Bicarbonate 50 MEQ in Dextrose 5 %-0.45 % NaCl 1,000 ML IV SCH (12:30)
[2021-05-09] MEDS ORDERED: metroNIDAZOLE 500 MG/100 ML BAG ONE (12:46)
[2021-05-09] MEDS ORDERED: Dextrose 5 %-0.45 % NaCl 1,000 ML IV SCH ×2 (13:00→19:15)
[2021-05-09] MEDS ORDERED: Ondansetron ODT 4 MG TAB SL PRN (13:00)
[2021-05-09] MEDS ORDERED: Acetaminophen 325 MG TAB PO PRN (13:00)
[2021-05-09] MEDS ORDERED: Ondansetron PF 4 MG/2 ML Vial IVP PRN ×2 (13:00→19:18)
[2021-05-09] MEDS ORDERED: Albuterol Sulfate 2.5 mg/0.5 ml Neb ONE ×2 (13:55)
[2021-05-09] MEDS ORDERED: Albuterol Sulfate 1.25 MG/3 ML NEB ONE ×2 (13:55)
[2021-05-09 14:34] LABS: Troponin I 0.079 ng/mL (< 0.028)
[2021-05-09 16:07] LABS: Lactic Acid 7.9 mmol/L (0.5-2.2)
[2021-05-09 18:02] LABS: ALT (SGPT) 882 U/L (8-55); AST (SGOT) 2249 U/L (5-34); Albumin 3.5 g/dL (3.4-4.8); Alkaline Phosphatase 284 U/L (40-110); Anion Gap 34 mmol/L (10-20); BUN (Urea Nitrogen) 71 mg/dL (9.8-20.1); Calc. Creatinine Clearance 29 mL/min (70-130); Calcium 7.8 mg/dL (7.8-10.44); Chloride 107 mmol/L (98-107); Globulin 2.4 g/dL (2.4-3.5); Glucose 79 mg/dL (80-115); Potassium 5.8 mmol/L (3.5-5.1); Protein, Total 5.9 g/dL (5.8-8.1); Sodium 143 mmol/L (136-145)
[2021-05-09 18:13] LABS: Carbon Dioxide 8 mmol/L (23-31)
[2021-05-09] MEDS ORDERED: Fentanyl 100 MCG/2 ML VIAL SLOW IVP PRN (19:16)
[2021-05-09] MEDS: Flecainide 50 MG TAB PO SCH (21:37)
[2021-05-09] MEDS: metroNIDAZOLE 500 MG in Premix Bag 1 BAG IVPB SCH (21:40)
[2021-05-09] MEDS: Albuterol Sulfate 2.5 mg/3 ml Neb NEB SCH (22:25)
[2021-05-10] MEDS ORDERED: Norepinephrine 8 MG/0.9% NS 250 ML ONE (00:23)
[2021-05-10 01:35] LABS: Hemoglobin 8.8 g/dL (12.0-16.0); Mean Corpuscular HGB CONC 28.9 g/dL (32.0-36.0); Mean Corpuscular Hemoglobin 24.1 pg (27.0-31.0); Mean Corpuscular Volume 83.3 fL (78.0-98.0); Mean Platelet Volume 11.1 fL (7.4-10.4); Platelet Count 198 thou/uL (130-400); RBC Distribution Width 21.2 % (11.5-14.5); Red Blood Cell (RBC) Count 3.65 mill/uL (4.20-5.40)
[2021-05-10 01:50] LABS: ALT (SGPT) 968 U/L (8-55); AST (SGOT) 2177 U/L (5-34); Albumin 3.6 g/dL (3.4-4.8); Alkaline Phosphatase 289 U/L (40-110); Anion Gap 29 mmol/L (10-20); BUN (Urea Nitrogen) 74 mg/dL (9.8-20.1); Bilirubin, Total 2.7 mg/dL (0.2-1.2); Calc. Creatinine Clearance 26 mL/min (70-130); Calcium 7.8 mg/dL (7.8-10.44); Carbon Dioxide 14 mmol/L (23-31); Chloride 101 mmol/L (98-107); Globulin 2.4 g/dL (2.4-3.5); Glucose 166 mg/dL (80-115); Potassium 5.6 mmol/L (3.5-5.1); Sodium 138 mmol/L (136-145)
[2021-05-10 02:00] LABS: MDiff Complete? YES; Metamyelocyte 1 % (0-0); Monocytes 7 % (0-10); Neutrophil 92 % (42-75); Nucleated RBC 3 % (0); Platelet Morphology Comment Appears Adequate
[2021-05-10] MEDS ORDERED: Sodium Bicarb 50 MEQ/50 ML Abboject 8.4% SYRINGE IVP SCH (02:15)
[2021-05-10] MEDS: Albuterol Sulfate 2.5 mg/3 ml Neb NEB SCH ×3 (02:28→10:55)
[2021-05-10 06:00] VITALS: BMI 43.2
[2021-05-10] MEDS: metroNIDAZOLE 500 MG in Premix Bag 1 BAG IVPB SCH ×3 (06:18→20:42)
[2021-05-10] MEDS ORDERED: Dextrose 50% Abboject 50 ML SYRINGE IVP PRN (06:45)
[2021-05-10] MEDS ORDERED: Insulin Regular 300 UNITS/3 ML VIAL SC PRN (06:45)
[2021-05-10] MEDS ORDERED: Dextrose 5% in Water 1,000 ML IV PRN (06:45)
[2021-05-10] MEDS ORDERED: MEROPENEM 1 GM/50 ML 1 GM in Premix Bag 1 BAG IVPB SCH (06:45)
[2021-05-10] MEDS: Levothyroxine Sodium 75 MCG TAB PO SCH (08:34)
[2021-05-10] MEDS: Flecainide 50 MG TAB PO SCH ×2 (08:42→20:42)
[2021-05-10] MEDS ORDERED: Heparin 10,000 UNITS/ 10 ML VIAL ONE (08:55)
[2021-05-10] MEDS: Alogliptin 6.25 MG TAB PO SCH (09:00)
[2021-05-10] MEDS ORDERED: Metoprolol Tartrate 25 MG TAB PO SCH (09:00)
[2021-05-10] MEDS ORDERED: Cefepime 2 GM in Sodium Chloride 0.9% 100 ML IVPB SCH (12:00)
[2021-05-10] MEDS: Sodium Chloride 0.9% 1,000 ML IV SCH ×2 (12:34→19:41)
[2021-05-10] MEDS: Hydrocortisone Sod Succ/PF 100 mg/2 ml Vial IVP SCH ×2 (12:36→19:05)
[2021-05-10 13:11] LABS: Hep B Core Total Ab Non-Reactive (NonReactive); Hep B Core Total Index 0.76 S/CO (0-0.79)
[2021-05-10 13:22] LABS: Hep C IgG Ab Non-Reactive (NonReactive); Hep C Index 0.05 S/CO (0-0.79)
[2021-05-10 13:23] LABS: HBSAB Concentration 229.79 mIU/mL; Hep B Surf AB Reactive (NonReactive)
[2021-05-10 14:07] LABS: HBSAg Index 0.23 S/CO (0-0.99)
[2021-05-10 14:08] LABS: Hep B Surf Ag NonReactive S/CO (NonReactive)
[2021-05-10] MEDS: Meropenem 500 MG in Sodium Chloride 0.9% 100 ML IVPB SCH (17:11)
[2021-05-10] MEDS: Mometasone 200 MCG/Formoterol 5 MCG 120 PUFF INHALER INH SCH (18:45)
[2021-05-10] MEDS: Norepinephrine 8 MG/0.9% NS 250 ML IVPB PRN (20:48)
[2021-05-11 00:06] LABS: Anion Gap 27 mmol/L (10-20); BUN (Urea Nitrogen) 70 mg/dL (9.8-20.1); Calc. Creatinine Clearance 26 mL/min (70-130); Calcium 7.2 mg/dL (7.8-10.44); Carbon Dioxide 18 mmol/L (23-31); Chloride 100 mmol/L (98-107); Glucose 195 mg/dL (80-115); Potassium 5.8 mmol/L (3.5-5.1); Sodium 139 mmol/L (136-145)
[2021-05-11] MEDS ORDERED: Calcium Gluc 4.6 MEQ/10 ML (100 MG/ML) SLOW IVP SCH ×2 (00:30→01:15)
[2021-05-11] MEDS ORDERED: Calcium Chloride 1 GM/10 ML Abboject SYRINGE ONE (00:32)
[2021-05-11 00:33] LABS: Actual Bicarbonate (HCO3a) 16.5 mEq/L (22-28); Base Excess (BEa) -9.7 mEq/L (-2.0 to +3.0); CO2 Tension 37.3 mmHg (35.0-45.0); Calcium, Ionized (arterial) 0.89 mmol/L (1.12-1.30); Carboxyhemoglobin (COHb) 0.9 gm% (0.0-3.0); Hemoglobin (Hb) 8.7 g/dL (12.0-16.0); O2 Tension (PaO2), arterial 96.4 mmHg (> 80.0); Potassium - ABG Lab 5.56 mmol/L (3.70-5.30); pH, Arterial 7.26 (7.35-7.45)
[2021-05-11] MEDS: Hydrocortisone Sod Succ/PF 100 mg/2 ml Vial IVP SCH ×4 (00:33→17:28)
[2021-05-11 00:39] LABS: Puncture Site RBA
[2021-05-11 00:41] LABS: ALV-art Gradient 85.135 mmHg (0-20)
[2021-05-11] MEDS ORDERED: Sodium Bicarb 50 MEQ/50 ML Abboject 8.4% SYRINGE ONE ×2 (01:12→01:18)
[2021-05-11] MEDS ORDERED: Sodium Bicarb 50 MEQ/50 ML Abboject 8.4% SYRINGE IVP SCH ×2 (01:15→01:30)
[2021-05-11 01:26] LABS: Band 5 % (5-11); Hemoglobin 8.1 g/dL (12.0-16.0); Hypochromia SLIGHT = 6-15 cells (100X) (0-5/hpf); Lymphocytes 2 % (21-51); MDiff Complete? YES; Mean Corpuscular HGB CONC 29.6 g/dL (32.0-36.0); Mean Corpuscular Hemoglobin 24.6 pg (27.0-31.0); Mean Corpuscular Volume 83.1 fL (78.0-98.0); Mean Platelet Volume 8.7 fL (7.4-10.4); Monocytes 10 % (0-10); Neutrophil 83 % (42-75); Platelet Count 97 thou/uL (130-400); Platelet Morphology Comment Appears Decreased; Red Blood Cell (RBC) Count 3.27 mill/uL (4.20-5.40); White Blood Cell (WBC) Count 22.1 thou/uL (4.8-10.8)
[2021-05-11] MEDS ORDERED: Sodium Bicarbonate 150 MEQ in Dextrose 5% in Water 1,000 ML IV SCH (01:30)
[2021-05-11] MEDS ORDERED: Amiodarone 150 MG, Admixture Fee 1 EACH in Dextrose 5% in Water 100 ML IVPB SCH (03:00)
[2021-05-11] MEDS ORDERED: Amiodarone 450 MG, Admixture Fee 1 EACH in Dextrose 5% in Water 250 ML IVPB SCH (03:00)
[2021-05-11] MEDS: Sodium Chloride 0.9% 1,000 ML IV SCH ×2 (03:14→15:54)
[2021-05-11] MEDS: Meropenem 500 MG in Sodium Chloride 0.9% 100 ML IVPB SCH ×2 (03:14→15:55)
[2021-05-11] MEDS ORDERED: EPINEPHrine 4 MG in Dextrose 5% in Water 250 ML IV SCH (04:15)
[2021-05-11] MEDS: Norepinephrine 8 MG/0.9% NS 250 ML IVPB PRN ×3 (04:59→15:54)
[2021-05-11] MEDS: metroNIDAZOLE 500 MG in Premix Bag 1 BAG IVPB SCH (04:59)
[2021-05-11] MEDS: Levothyroxine Sodium 75 MCG TAB PO SCH (05:04)
[2021-05-11] MEDS: Mometasone 200 MCG/Formoterol 5 MCG 120 PUFF INHALER INH SCH (08:32)
[2021-05-11] MEDS ORDERED: Heparin 10,000 UNITS/ 10 ML VIAL ONE (08:53)
[2021-05-11 09:05] LABS: Actual Bicarbonate (HCO3a) 15.5 mEq/L (22-28); Base Excess (BEa) -11.3 mEq/L (-2.0 to +3.0); CO2 Tension 38.3 mmHg (35.0-45.0); Carboxyhemoglobin (COHb) 0.1 gm% (0.0-3.0); O2 Tension (PaO2), arterial 97.4 mmHg (> 80.0); Potassium - ABG Lab 5.38 mmol/L (3.70-5.30)
[2021-05-11 09:06] LABS: ALV-art Gradient 111.405 mmHg (0-20); Puncture Site RRA; pH, Arterial 7.23 (7.35-7.45)
[2021-05-11] MEDS: Flecainide 50 MG TAB PO SCH (09:36)
[2021-05-11] MEDS: Alogliptin 6.25 MG TAB PO SCH (09:39)
[2021-05-11] MEDS ORDERED: metroNIDAZOLE 500 MG in Premix Bag 1 BAG IVPB SCH (13:00)
[2021-05-11 14:15] VITALS: BP 102/62
[2021-05-11 16:33] VITALS: TEMP 98.7
== END 2021-05-11 18:35 | disposition expired | DRG 871 ==
LOC: ERS 10:01 → IMCU/EMU 13:52 → CCU 05-10 00:37
PROVIDERS: ADMIT Specialist; ATTEND Specialist
PROC: 3E033XZ Introduction of Vasopressor into Peripheral Vein, Percutaneous Approach (ICD-10-PCS; principal; 2021-05-10)
PROC: 5A1D90Z Performance of Urinary Filtration, Continuous, Greater than 18 hours Per Day (ICD-10-PCS; 2021-05-10)
PROC: 06HY33Z Insertion of Infusion Device into Lower Vein, Percutaneous Approach (ICD-10-PCS; 2021-05-10)
PROC: 06HY33Z Insertion of Infusion Device into Lower Vein, Percutaneous Approach (ICD-10-PCS; 2021-05-10)
DX: A41.9 Sepsis, unspecified organism (principal); J96.01 Acute respiratory failure with hypoxia; G93.41 Metabolic encephalopathy; N17.9 Acute kidney failure, unspecified; I13.0 Hypertensive heart and chronic kidney disease with heart failure and stage 1 through stage 4 chronic kidney disease, or unspecified chronic kidney disease; E87.2 Acidosis; F11.20 Opioid dependence, uncomplicated; Z68.41 Body mass index [BMI] 40.0-44.9, adult; R64 Cachexia; M62.82 Rhabdomyolysis; R65.20 Severe sepsis without septic shock; Z66 Do not resuscitate; E03.9 Hypothyroidism, unspecified; E78.00 Pure hypercholesterolemia, unspecified; J44.9 Chronic obstructive pulmonary disease, unspecified; F41.9 Anxiety disorder, unspecified; F32.9 Major depressive disorder, single episode, unspecified; E11.22 Type 2 diabetes mellitus with diabetic chronic kidney disease; I49.5 Sick sinus syndrome; I48.0 Paroxysmal atrial fibrillation; M85.80 Other specified disorders of bone density and structure, unspecified site; G47.00 Insomnia, unspecified; D50.9 Iron deficiency anemia, unspecified; E87.5 Hyperkalemia; D72.829 Elevated white blood cell count, unspecified; K21.9 Gastro-esophageal reflux disease without esophagitis; N18.30 Chronic kidney disease, stage 3 unspecified; I08.1 Rheumatic disorders of both mitral and tricuspid valves; E66.01 Morbid (severe) obesity due to excess calories; E88.81 Metabolic syndrome and other insulin resistance; Z96.653 Presence of artificial knee joint, bilateral; Z20.822 Contact with and (suspected) exposure to COVID-19; M10.9 Gout, unspecified; I50.9 Heart failure, unspecified; I95.9 Hypotension, unspecified; Z90.49 Acquired absence of other specified parts of digestive tract; Z88.1 Allergy status to other antibiotic agents; Z91.041 Radiographic dye allergy status; Z88.6 Allergy status to analgesic agent; Z79.890 Hormone replacement therapy; Z79.51 Long term (current) use of inhaled steroids; Z79.899 Other long term (current) drug therapy; Z90.710 Acquired absence of both cervix and uterus; Z98.1 Arthrodesis status; Z90.89 Acquired absence of other organs; Z87.891 Personal history of nicotine dependence; Z95.0 Presence of cardiac pacemaker; Z98.890 Other specified postprocedural states; Z98.42 Cataract extraction status, left eye; Z98.41 Cataract extraction status, right eye
CPT/HCPCS: 36415; 36416; 36600; 51701; 70450; 71045; 76705; 80053; 81003; 81015; 82533; 82550; 82553; 82805; 83605; 83874; 84484; 85025; 86140; 86704; 86706; 86803; 87040; 87086; 87340; 90935; 93005; 93010; 93306; 93970; 94640; 94760; 96365; 96375; 99292; G0257; J0692; J1642; J1644; J1720; J1815; J2001; J2185; J3490; J7042; J7070; J7611; J7620; P9045